=== PATIENT | male | born 1935 | race Caucasian/White ===

== ENCOUNTER 2020-11-21 08:28 | Outpatient (REF) | payer MEDICARE, SELFPAY ==
--- NOTE | ~2020-11-21 | XR_ITS ---
EXAMINATION: XR KNEE, RIGHT XR KNEE, LEFT CLINICAL INFORMATION: Bilateral knee pain COMPARISON: Radiographs left knee 05/31/2010, radiographs right knee 05/14/2006. TECHNIQUE: Each knee is imaged in 4 views. There are a total of 8 views. Series includes AP projections of each knee with weightbearing. FINDINGS: Right: There is no fracture, dislocation, destructive process. There is mild narrowing medial knee joint compartment and lateral patellofemoral joint without erosive change or chondrocalcinosis. There is spurring from the lateral patella. The anterior mechanism is spurring at the insertion quadriceps upper patella and at origin and insertion patella tendon. There is a small suprapatellar effusion. Hoffa's fat pad appears normal. Normal bony mineralization. Left: There is no fracture, dislocation, or destructive process. Narrowing medial knee joint compartment is greater than that on the contralateral right side and there is marginal osteophyte from the medial femoral condyle and medial tibial plateau with mild secondary genu varus. There is mild degenerative change lateral patellofemoral joint with borderline lateral tilting and lateral patellar spur. Small suprapatellar effusion present. There is spurring anterior mechanism at insertion quadriceps on patella and at origin and insertion patella tendon. Hoffa's fat pad within normal. XR/XR knee RT 4V IMPRESSION: 1. Mild narrowing bilateral medial knee joint compartments, greater on left with mild secondary left genu. Mild bilateral degenerative changes lateral patellofemoral joint with borderline lateral tilting on left. 2. Bilateral spurring extensor mechanism. 3. Small bilateral suprapatellar effusions.
--- NOTE | ~2020-11-21 | XR_ITS ---
EXAMINATION: XR KNEE, RIGHT XR KNEE, LEFT CLINICAL INFORMATION: Bilateral knee pain COMPARISON: Radiographs left knee 05/31/2010, radiographs right knee 05/14/2006. TECHNIQUE: Each knee is imaged in 4 views. There are a total of 8 views. Series includes AP projections of each knee with weightbearing. FINDINGS: Right: There is no fracture, dislocation, destructive process. There is mild narrowing medial knee joint compartment and lateral patellofemoral joint without erosive change or chondrocalcinosis. There is spurring from the lateral patella. The anterior mechanism is spurring at the insertion quadriceps upper patella and at origin and insertion patella tendon. There is a small suprapatellar effusion. Hoffa's fat pad appears normal. Normal bony mineralization. Left: There is no fracture, dislocation, or destructive process. Narrowing medial knee joint compartment is greater than that on the contralateral right side and there is marginal osteophyte from the medial femoral condyle and medial tibial plateau with mild secondary genu varus. There is mild degenerative change lateral patellofemoral joint with borderline lateral tilting and lateral patellar spur. Small suprapatellar effusion present. There is spurring anterior mechanism at insertion quadriceps on patella and at origin and insertion patella tendon. Hoffa's fat pad within normal. XR/XR knee LT 4V IMPRESSION: 1. Mild narrowing bilateral medial knee joint compartments, greater on left with mild secondary left genu. Mild bilateral degenerative changes lateral patellofemoral joint with borderline lateral tilting on left. 2. Bilateral spurring extensor mechanism. 3. Small bilateral suprapatellar effusions.
== END 2020-11-21 08:29 | disposition home or self-care (01) ==
LOC: HO.XRAY 08:28
PROVIDERS: PCP Internal Medicine; Visit Provider Internal Medicine
DX: M25.561 Pain in right knee (principal); M25.562 Pain in left knee
CPT/HCPCS: 73564

== ENCOUNTER → 2020-11-26 12:22 | Outpatient (BNVA) | payer MEDICARE, SELFPAY | PROVIDERS: PCP Internal Medicine; Visit Provider Orthopaedic Surgery | DX: M17.0 Bilateral primary osteoarthritis of knee (principal) | CPT/HCPCS: 20610; 99202; J1040 ==

== ENCOUNTER → 2021-06-27 09:12 | Outpatient (BNVA) | payer MEDICARE, SELFPAY | PROVIDERS: PCP Internal Medicine; Visit Provider Orthopaedic Surgery | DX: M17.0 Bilateral primary osteoarthritis of knee (principal) | CPT/HCPCS: 20610; 99212; J1100 ==

== ENCOUNTER 2021-07-17 06:28 | Outpatient (REF) | payer MEDICARE, SELFPAY ==
[2021-07-17 07:56] LABS: Anion Gap 11 (12-20); Blood Urea Nitrogen 18 mg/dL (9-16); Calcium 9.5 mg/dL (8.4-10.2); Carbon Dioxide 28 mmol/L (22-29); Chloride 106 mmol/L (96-108); Estimated Glomerular Filt Rate > 60; Glucose Random 95 mg/dL (60-115); Potassium 4.3 mmol/L (3.3-5.1); Sodium 141 mmol/L (135-145)
[2021-07-17 08:24] LABS: Prostate Specific Antigen 4.74 ng/mL (<0.05-4.0)
== END 2021-07-17 06:29 | disposition home or self-care (01) ==
LOC: HO.LAB 06:28
PROVIDERS: PCP Internal Medicine; Visit Provider Internal Medicine
DX: N40.0 Benign prostatic hyperplasia without lower urinary tract symptoms (principal); I10 Essential (primary) hypertension; Z12.5 Encounter for screening for malignant neoplasm of prostate
CPT/HCPCS: 36415; 80048; 84153

== ENCOUNTER → 2022-11-16 07:13 | Outpatient (BNVA) | payer MEDICARE, SELFPAY | PROVIDERS: PCP Internal Medicine; Visit Provider Internal Medicine Gastroenterology | DX: Z80.0 Family history of malignant neoplasm of digestive organs (principal); Z86.010 Personal history of colon polyps | CPT/HCPCS: 99202 ==

== ENCOUNTER 2022-12-15 06:53 | Day surgery (SDC) | payer OTHER, SELFPAY ==
[2022-12-10 13:57] VITALS: BMI 34.3
[2022-12-15 07:25] VITALS: BMI 34.5
[2022-12-15 07:27] VITALS: BP 136/65; PULSE 58; RESP 18; TEMP 36.1; O2SAT 99
[2022-12-15 07:28] VITALS: BMI 34.5
--- NOTE | 2022-12-15 07:44 | MHC.SHP ---
Pre-Procedural Eval Section A Date of Service: 12/15/22 The patient is an INPATIENT: No Changes since office visit: Yes Patient answered all questions; No Cold of Flu in the past 2 weeks, No New Medical Problems and No Changes in Medication The History & Physical has been completed within 30 days and I have reviewed it.: Yes Section B Chief Complaint: Personal history of colonic polyps,gerd,family hx Allergies: Allergies Allergy/AdvReac Type Severity Reaction Status Date / Time No Known Allergies Allergy Verified 11/16/22 07:23 Plan I have reviewed the history and physical and performed a pertinent physical examination on my patient. No changes have occurred unless specified. Time Spent With Patient Time: Total time managing care of this patient today ____ minutes.
[2022-12-15] MEDS: Lactated Ringers 1,000 ML 100 ML IVCONT (07:56)
--- NOTE | 2022-12-15 08:15 | P.CONAN_ITS ---
[facility] Active Problems Active Problems: All Active Problems (Updated 12/10/22 @ 13:47 by Maria C Rincon RN) Primary osteoarthritis of left knee (Acute) Primary osteoarthritis of right knee (Acute) History of colon polyps (Acute) Family history of colon cancer (Acute) Obesity (Acute) Past Medical History Medical History (Updated 12/10/22 @ 13:47 by Maria C Rincon RN) Anemia Asthma Enlarged prostate Gout Hypertension Family History Family History (Updated 11/16/22 @ 07:24 by MILVIA Guidry) Brother Colon cancer Family history of problems with anesthesia: No Surgical History Surgical History (Updated 11/16/22 @ 07:23 by MILVIA Guidry) Hx of colonoscopy Hx of LASIK History of Problems with Anesthesia: No Social History Social History Patient Tobacco Use Status: Former Tobacco user Quit Date: 47 years Use of substances other than those prescribed or required for medical reasons: No Are you DNR?: No Advance Directives: No Advance Directives Information Provided: Yes Current occupation: [employer] Allergies Allergy/AdvReac Type Severity Reaction Status Date / Time No Known Allergies Allergy Verified 11/16/22 07:23 Active Medications: Current Medications Albuterol Sulfate (Albuterol Sulfate (0.083%) 2.5 Mg/3 Ml Vial.Neb) 2.5 mg INHALE ONCE PRN PRN Reason: Shortness of Breath/Wheezing Lactated Ringer's (Lr) 1,000 mls @ 100 mls/hr IVCONT .Q10H ARNOLD Last Admin: 12/15/22 07:56 Dose: 100 mls/hr Ondansetron HCl (Ondansetron Hcl 4 Mg/2 Ml Vial) 4 mg IVPUSH ONCE PRN PRN Reason: Nausea and Vomiting Home Medications Medication Instructions Recorded Confirmed Last Taken Type aspirin 81 mg tablet,delayed 81 mg PO DAILY 11/26/20 12/10/22 12/14/22 History release (Adult Low Dose Aspirin) atenolol 25 mg tablet 25 mg PO DAILY 11/26/20 12/10/22 12/15/22 History amlodipine 10 mg tablet 10 mg PO DAILY 11/16/22 12/10/22 12/15/22 History albuterol sulfate 90 mcg/actuation 2 puff inhalation Q6H PRN 12/10/22 12/10/22 Unknown History aerosol inhaler Shortness Of Breath Or Wheezing cetirizine 10 mg tablet 10 mg PO DAILY PRN Allergy Symptoms 12/10/22 12/10/22 Unknown History colchicine 0.6 mg tablet 0.6 mg PO DAILY 12/10/22 12/15/22 Unknown History fluticasone furoate 100 1 ea inhalation QAM 12/10/22 12/10/22 12/15/22 History mcg-vilanterol 25 mcg/dose inhalation powder (Breo Ellipta) Exam Exam Date and Time: December 15, 2022 0815 Height,Weight and Vital Signs: Height 5 ft 4 in Weight 91.172 kg Last Vital Signs Temp 96.9 F 12/15/22 07:27 Pulse 58 12/15/22 07:27 Resp 18 12/15/22 07:27 BP 136/65 12/15/22 07:27 Pulse Ox 99 12/15/22 07:27 O2 Del Method Room Air 12/15/22 07:27 Airway Mallampati Class: III TM Dist: >3cm Denture: Upper Partial: Lower Loose/Missing/Broken Teeth: Yes Heart: rrr Lungs: clear Assessment and Plan Final Anesthetic Review Family History of Problems with Anesthesia: No History of Problems with Anesthesia: No NPO: Yes ASA Class: II Final Preanesthetic Review: No Changes in Pt Med Stat, Meds/Allgs Chart Reviewed, Consent Obtained/Reviewed and Anes Risks/Benef Reviewed Patient Risk: Intermediate Procedure Risk: Low Anesthetic Plan Anesthetic Plan: MAC: Disposition: Standard PACU
--- NOTE | 2022-12-15 08:15 | W.PM.OPN ---
Operative Note Operative Note Date of Service: 12/15/22 Narrative: FLEXIBLE TRANSORAL UPPER GASTROINTESTINAL ENDOSCOPY WITH BIOPSIES AND COLONOSCOPY TILL CECUM WITH SNARE POLYPECTOMY Pre-op diagnosis: screening, hx of colon polyps, GERD Post-op diagnosis: GERD, gastritis, colon polyps, diverticulosis, hemorrhoids Endoscopist:? Jillian Dumont MD Anesthesia:?MAC UPPER ENDOSCOPY Consent: Indications for the procedure and potential complications of bleeding, perforation, reaction to medications and missed diagnosis were discussed with the patient and informed consent was obtained. Instrument: Olympus GIF H 190 mid size upper endoscope Monitoring: Vital signs and clinical assessment, continuous EKG monitoring, Pulse oximetry, Carbon Dioxide monitoring and blood pressure monitoring were done throughout the procedure. Procedure: The patient was placed in the left lateral decubitis position and pre-procedure medications were administered and a bite block was placed. The endoscope was inserted into the mouth and advanced under direct vision to the third part of duodenum. A careful inspection was made as the upper endoscope was withdrawn including a retroflexed examination of the proximal stomach; Findings and interventions are described below. Findings: Larynx: Normal Esophagus: GE junction at 36 cms. No esophagitis or Abbott's. Stomach: Mild gastric erythema with a few chronic appearing erosions. Biopsies were obtained. Grade 2 flap valve on retroflexed examination of the cardia. Duodenum: Normal bulb and a medium sized diverticulum in the medial wall of descending duodenum Intervention: Biopsies as noted above COLONOSCOPY PROCEDURE NOTE Consent: Indications for the procedure and potential complications of bleeding, perforation, reaction to medications and missed diagnosis were discussed with the patient and informed consent was obtained. Instrument: Olympus PCF H 190 L variable stiffness pediatric colonoscope Monitoring: Vital signs and clinical assessment, intermittent blood pressure monitoring, continuous EKG monitoring, Pulse oximetry and Carbon Dioxide monitoring were done throughout the procedure. Colon withdrawl time was 30 minutes. Procedure: The patient was placed in the left lateral decubitis position and pre-procedure medications were administered. After a digital rectal examination of the ano-rectum, the video colonoscope was inserted into the rectum and advanced through the colon to the cecum. The colonoscope was slowly withdrawn in a retrograde panoramic fashion and the colon mucosa was carefully examined including a retroflexed view of the rectum. Findings and interventions are described below. Procedure Difficulty: Colon was long and there was some loop formation Findings: Terminal Ileum: Not evaluated Cecum: Normal Ascending Colon: A 1.8 to 2 cms sessile polyp - patient was placed in the supine position to facilitate snaring of the polyp. A 12 mm sessile polyp - removed with a hot snare. Transverse Colon: A 12 mm sessile polyp removed with a cold snare. Some bleeding noted at polypectomy site - controlled with cautery using the snare tip Descending Colon: Normal Sigmoid Colon: Moderate diverticulosis Rectum: Normal Ano-rectum: Moderate internal hemorrhoids Colon preparation: Good Impression and Post Procedure Diagnosis: Endoscopy Findings: STOMACH: Mild gastric erythema with a few chronic appearing erosions. DUODENUM: A medium sized diverticulum in the medial wall of descending duodenum Colonoscopy Findings: Two medium sized and one large polyps removed Moderate diverticulosis seen in the sigmoid colon Moderate hemorrhoids on retroflexed exam. Plan: Await pathology results Patient has an appointment on 02/18/23 in the GI Clinic with Jillian Dumont M.D. Repeat Colonoscopy interval based on path results - in 3 years if polyps are adenomatous and 5 years if polyps are hyperplastic (adult colonoscope for future colonoscopies). Colon polyps and diverticulosis handouts were given in the discharge area
[2022-12-15 09:39] VITALS: BP 95/52; PULSE 65; RESP 16; TEMP 36.2; O2SAT 97
[2022-12-15 09:54] VITALS: BP 98/53; PULSE 57; RESP 16; O2SAT 94
[2022-12-15 10:01] VITALS: BP 105/50; PULSE 61; RESP 18; TEMP 36.1; O2SAT 97
== END 2022-12-15 10:20 | disposition home or self-care (01) ==
PROVIDERS: PCP Internal Medicine; Visit Provider Internal Medicine Gastroenterology
PROC: (CPT 45385; principal; 2022-12-15 08:30)
DX: Z12.11 Encounter for screening for malignant neoplasm of colon (principal); Z86.010 Personal history of colon polyps; Z80.0 Family history of malignant neoplasm of digestive organs; D12.2 Benign neoplasm of ascending colon; D12.3 Benign neoplasm of transverse colon; K57.30 Diverticulosis of large intestine without perforation or abscess without bleeding; K64.8 Other hemorrhoids; K21.9 Gastro-esophageal reflux disease without esophagitis; K29.50 Unspecified chronic gastritis without bleeding; I10 Essential (primary) hypertension; M10.9 Gout, unspecified; J45.909 Unspecified asthma, uncomplicated; Z79.51 Long term (current) use of inhaled steroids; Z79.82 Long term (current) use of aspirin; Z79.899 Other long term (current) drug therapy; Z87.891 Personal history of nicotine dependence
CPT/HCPCS: 45385; 43239; 88305; 88342; J0461

== ENCOUNTER → 2022-12-15 06:53 | Outpatient (BNV) | payer OTHER, SELFPAY | PROVIDERS: PCP Internal Medicine; Visit Provider Internal Medicine Gastroenterology | DX: Z12.11 Encounter for screening for malignant neoplasm of colon (principal); Z86.010 Personal history of colon polyps; K57.30 Diverticulosis of large intestine without perforation or abscess without bleeding; K64.8 Other hemorrhoids; D12.2 Benign neoplasm of ascending colon; D12.3 Benign neoplasm of transverse colon; K21.9 Gastro-esophageal reflux disease without esophagitis; K29.70 Gastritis, unspecified, without bleeding | CPT/HCPCS: 43239; 45385 ==

== ENCOUNTER 2023-02-18 11:15 | Outpatient (AMB) | payer MEDICARE, SELFPAY ==
--- NOTE | 2023-02-18 11:24 | MHC.OFFVIS ---
Intake Vital Signs 02/18/23 11:26 Height 5 ft 4 in Weight 200 lb BMI 34.3 BP 122/59 L Blood Pressure Location Lt brachial Position Sitting Pulse 62 Intake Visit Reasons: S/p egd/colon Intake Note: Patient follow up for EGD/Colonoscopy results. Patient is been waiting for positive Hp pylori antibiotic that was suppose to send after the procedures. Denies any GI issues. [employer] Superintendent Required: No Accompanied by: Self / Same As Patient Allergies No Known Allergies Allergy (Verified 02/18/23 11:24) Medication List - Last Reconciled 02/18/23 by Jillian Dumont MD albuterol sulfate 90 mcg/actuation 2 puffs inhalation Q6H PRN amlodipine 10 mg PO DAILY aspirin (Adult Low Dose Aspirin) 81 mg PO DAILY atenolol 25 mg PO DAILY bismuth subcit [id number] 140-125-125 mg (Pylera) 3 caps PO QID 14 days cetirizine 10 mg PO DAILY PRN colchicine (gout) 0.6 mg PO DAILY fluticasone furoate-vilanterol 100-25 mcg/dose (Breo Ellipta) 1 ea inhalation QAM omeprazole 20 mg PO BID 30 days HPI S/p egd/colon HPI Details GI clinic visit for this 87 year male for colon cancer screening. Pt has a history of colon polyps IMAGING STUDIES: None in expanse ENDOSCOPIC STUDIES: 12/15/22 EGD AND COLON SHOWED: Endoscopy Findings: STOMACH: Mild gastric erythema with a few chronic appearing erosions. DUODENUM: A medium sized diverticulum in the medial wall of descending duodenum Colonoscopy Findings: Two medium sized and one large polyps removed Moderate diverticulosis seen in the sigmoid colon Moderate hemorrhoids on retroflexed exam. Plan: Repeat Colonoscopy interval based on path results - in 3 years if polyps are adenomatous and 5 years if polyps are hyperplastic (adult colonoscope for future colonoscopies). 01/2018 COLONOSCOPY SHOWED: Ascending Colon ? A 15 mm sessile polyp removed with hot snare Transverse Colon - A 10 mm sessile polyp removed with cold snare. Some bleeding noted at polypectomy site controlled with cautery using the snare tip Descending Colon ? Normal Sigmoid Colon ? A 10 mm sessile polyp removed with hot snare Rectum ? Normal Anorectum - Moderate non inflammed internal hemorrhoids Colon preparation: Fair despite copious flushing and suctioning and poor in some areas of the colon Impression and Post Procedure Diagnosis: Colonoscopy Findings: Three polyps removed Moderate hemorrhoids on retroflexed exam. Fair prep and poor in some areas Plan: Await pathology results Patient has an appointment on 02/22/2018 in the GI Clinic with Jillian Dumont M.D. Repeat Colonoscopy in 1 year due to fair prep. Biopsies of polyps showed tubular adenoma TODAY'S VISIT: [facility] [place] Educational Technician, Bruna EGD and colon results reviewed with the patient. Has intermittent heartburn depending on his diet and on no medications (was taking Ranitidine twice a day in the past). Patient denies symptoms of heartburn, dysphagia, nausea, vomiting, change in appetite or weight. Denies recent change in bowel habits, constipation, diarrhea, black stools. Intermittent BRBPR. Patient denies major cardiac or pulmonary problems. Pt has a hx of loud snoring and not tested for sleep apnea Denies problems with anesthesia in the past. Denies being on chronic anticoagulation. Brother from Colon Cancer ? at age 39 yrs. Complains of back pain. Social History Tobacco Use:? Tob acco Use/Smoking? Are you a: former smoker , How long has it been since you last smoked?: > 10 years.? Mi scellaneous:? Occ upation: retired. Dominant hand: l eft. Activity Lev el: very active. Marital status: m arried. PAST GI HISTORY BY REVIEW OF MEDICAL RECORDS: ?[place] [facility] [place] which showed: ?Diffuse melanosis coli throughout the colon. ?Two 8 - 10 mm sessile polyps were removed from the ascending colon. ?No diverticulii or hemorrhoids noted. ?Good prep. ?FU colonoscopy was advised in 6 months which was performed on 09/29/2011 and no polyps were seen. ?5 yr FU recommended [facility] Medical History (Updated 12/21/22 @ 14:48 by Jillian Dumont MD) Enlarged prostate Anemia Gout Asthma Hypertension Surgical History History of esophagogastroduodenoscopy (EGD) Hx of colonoscopy Hx of LASIK Family History Brother Colon cancer Social History Patient Tobacco Use Status: Former Tobacco user Quit Date: 47 years Current occupation: [employer] Review of Systems Const All systems reviewed & are unremarkable except as noted in HPI and below Physical Exam Vital Signs: Last Vital Signs Pulse 62 02/18/23 11:26 BP 122/59 L 02/18/23 11:26 BMI result Body Mass Index 34.3 Const General: healthy appearing and no acute distress Nutritional Appearance: obese Orientation/consciousness: patient oriented x3 Limitations: language barrier HEENT Head: Yes normal to inspection Ears: hearing grossly normal bilaterally Eyes Sclerae: sclerae normal Pupils: Equal, round and reactive pupils present Neck Neck: Yes normal visual inspection Chest Chest palpation & inspection: normal inspection of the chest Resp Effort & Inspection: normal respiratory effort Auscultation: clear to auscultation bilaterally Cardio Palpation: normal PMI Rate: regular rate Rhythm: regular rhythm Heart sounds: S1 normal heart sound present, S2 normal heart sound present and no murmurs GI Palpation (GI): Soft to palpation, nontender and No hepatosplenomegaly present Auscultation: normal bowel sounds Rectal Exam - Male: Yes deferred Skin General skin exam: no rashes or lesions noted Neuro General: patient oriented x3, gait normal and moves all extremities Cranial nerves: Yes Equal, round and reactive pupils present Psych Appearance: grossly normal Mental Status: mental status grossly normal Assessment & Plan Assessment & Plan (1) Multiple duodenal ulcers: Code(s): K29.81 - Duodenitis with bleeding (2) Helicobacter pylori gastritis: Code(s): K29.70 - Gastritis, unspecified, without bleeding; B96.81 - Helicobacter pylori [H. pylori] as the cause of diseases classified elsewhere (3) History of colon polyps: Comment: 2018 Pt had a colonoscopy and three medium sized polyps were removed. Repeat colon advised in 1 year due to suboptimal prep and not scheduled due to the pandemic Code(s): Z86.010 - Personal history of colonic polyps (4) Family history of colon cancer: Comment: Brother - at age 49 yrs Code(s): Z80.0 - Family history of malignant neoplasm of digestive organs Plan 87 YM with gout, asthma and hypertension here to schedule a colonoscopy due to history of colon polyps and family history of colon cancer. 2017 Pt had a colonoscopy and three medium sized polyps were removed. Repeat colon advised in 1 year due to suboptimal prep and not scheduled due to the pandemic Patient also complains of intermittent heartburn related to diet. 12/15/22 An upper endoscopy (GERD) and a colonoscopy (FU of colon polyps) were performed and findings as noted above. Gastric bx was positive for H Pylori. Pt was prescribed Pylera and Omeprazole FU in 6 months. Medications: Refilled bismuth subcit [id number] 140-125-125 mg (Pylera) 3 caps PO QID 14 days 168 caps 0RF B96.81 - Helicobacter pylori [H. pylori] as the cause of diseases classified elsewhere, K29.70 - Gastritis, unspecified, without bleeding Coding Level of Care Code Est Pt Level 4 (44858) Diagnoses Multiple duodenal ulcers K29.81 Helicobacter pylori gastritis K29.70; B96.81 History of colon polyps Z86.010 Family history of colon cancer Z80.0 Time Spent (min) 24
[2023-02-18 11:26] VITALS: BP 122/59; PULSE 62; BMI 34.3
== END 2023-02-18 12:04 | disposition home or self-care (01) ==
PROVIDERS: PCP Internal Medicine; Visit Provider Internal Medicine Gastroenterology
DX: K29.81 Duodenitis with bleeding (principal); K29.70 Gastritis, unspecified, without bleeding; B96.81 Helicobacter pylori [H. pylori] as the cause of diseases classified elsewhere; Z86.010 Personal history of colon polyps; Z80.0 Family history of malignant neoplasm of digestive organs
CPT/HCPCS: 99214

== ENCOUNTER → 2023-02-18 11:15 | Outpatient (BNVA) | payer MEDICARE, SELFPAY | PROVIDERS: PCP Internal Medicine; Visit Provider Internal Medicine Gastroenterology | DX: K29.70 Gastritis, unspecified, without bleeding (principal); B96.81 Helicobacter pylori [H. pylori] as the cause of diseases classified elsewhere; K29.81 Duodenitis with bleeding; Z86.010 Personal history of colon polyps; Z80.0 Family history of malignant neoplasm of digestive organs | CPT/HCPCS: 99212 ==

== ENCOUNTER 2023-03-23 06:33 | Outpatient (REF) | payer MEDICARE, SELFPAY ==
[2023-03-23 07:42] LABS: Anion Gap 12 (12-20); Blood Urea Nitrogen 14 mg/dL (9-16); Calcium 9.5 mg/dL (8.4-10.2); Carbon Dioxide 27 mmol/L (22-29); Chloride 107 mmol/L (96-108); Cholesterol 182 mg/dL (<200); Estimated Glomerular Filt Rate > 60; Glucose Random 108 mg/dL (60-115); HDL Cholesterol 46 mg/dL (>40); LDL Cholesterol Calculated 118 mg/dL (<100); Potassium 3.9 mmol/L (3.3-5.1); Sodium 142 mmol/L (135-145); Triglycerides 93 mg/dL (<150)
== END 2023-03-23 06:34 | disposition home or self-care (01) ==
LOC: HO.LAB 06:33
PROVIDERS: PCP Internal Medicine; Visit Provider Internal Medicine
DX: Z00.00 Encounter for general adult medical examination without abnormal findings (principal); I10 Essential (primary) hypertension
CPT/HCPCS: 36415; 80048; 80061

== ENCOUNTER 2023-07-26 06:46 | Outpatient (REF) | payer MEDICARE, SELFPAY ==
[2023-07-26 08:27] LABS: Prostate Specific Antigen 4.01 ng/mL (<0.05-4.0)
== END 2023-07-26 06:47 | disposition home or self-care (01) ==
LOC: HO.LAB 06:46
PROVIDERS: PCP Internal Medicine; Visit Provider Urology
DX: N42.9 Disorder of prostate, unspecified (principal); Z12.5 Encounter for screening for malignant neoplasm of prostate
CPT/HCPCS: 36415; 84153

== ENCOUNTER 2023-08-26 07:11 | Outpatient (REF) | payer MEDICARE, SELFPAY ==
[2023-08-28 13:43] LABS: H Pylori Breath Test Negative (Negative)
== END 2023-08-26 07:12 | disposition home or self-care (01) ==
LOC: HO.LNP 07:11
PROVIDERS: PCP Internal Medicine; Visit Provider Internal Medicine Gastroenterology
DX: K29.70 Gastritis, unspecified, without bleeding (principal); B96.81 Helicobacter pylori [H. pylori] as the cause of diseases classified elsewhere
CPT/HCPCS: 83013; 99212

== ENCOUNTER 2023-08-26 07:11 | Outpatient (AMB) | payer MEDICARE, SELFPAY ==
--- NOTE | 2023-08-26 07:18 | MHC.OFFVIS ---
Intake Vital Signs 08/26/23 07:19 Height 5 ft 4 in Weight 202 lb BMI 34.7 BP 125/55 L Blood Pressure Location Lt brachial Position Sitting Pulse 72 Intake Visit Reasons: 6 month follow up Tubular adenoma of colon Intake Note: Patient 6 month follow up for Tubular adenoma of Colon. Patient denies any GI issues, patient is not taking Omeprazole because never received any other refills, he does not if he have to continue to take it or not . Chief Of Anesthesiology Required: Yes Chief Of Anesthesiology Name: Tyrel [id number] Accompanied by: Self / Same As Patient Allergies No Known Allergies Allergy (Verified 08/26/23 07:17) Medication List - Last Reconciled 08/26/23 by Jillian Dumont MD albuterol sulfate 90 mcg/actuation 2 puffs inhalation Q6H PRN amlodipine 10 mg PO DAILY aspirin (Adult Low Dose Aspirin) 81 mg PO DAILY atenolol 25 mg PO DAILY bismuth subcit [id number] 140-125-125 mg (Pylera) 3 caps PO QID 14 days cetirizine 10 mg PO DAILY PRN colchicine 0.6 mg PO DAILY fluticasone furoate-vilanterol 100-25 mcg/dose (Breo Ellipta) 1 ea inhalation QAM omeprazole 20 mg PO BID 30 days HPI 6 month follow up Tubular adenoma of colon HPI Details GI clinic visit for this 87 year male for colon cancer screening. Pt has a history of colon polyps IMAGING STUDIES: None in expanse ENDOSCOPIC STUDIES: 12/15/22 EGD AND COLON SHOWED: Endoscopy Findings: STOMACH: Mild gastric erythema with a few chronic appearing erosions. DUODENUM: A medium sized diverticulum in the medial wall of descending duodenum Colonoscopy Findings: Two medium sized and one large polyps removed Moderate diverticulosis seen in the sigmoid colon Moderate hemorrhoids on retroflexed exam. Plan: Repeat Colonoscopy interval based on path results - in 3 years if polyps are adenomatous and 5 years if polyps are hyperplastic (adult colonoscope for future colonoscopies). 01/2018 COLONOSCOPY SHOWED:Ascending Colon ? A 15 mm sessile polyp removed with hot snare Transverse Colon - A 10 mm sessile polyp removed with cold snare. Some bleeding noted at polypectomy site controlled with cautery using the snare tip Descending Colon ? Normal Sigmoid Colon ? A 10 mm sessile polyp removed with hot snare Rectum ? Normal Anorectum - Moderate non inflammed internal hemorrhoids Colon preparation: Fair despite copious flushing and suctioning and poor in some areas of the colon Impression and Post Procedure Diagnosis: Colonoscopy Findings: Three polyps removed Moderate hemorrhoids on retroflexed exam. Fair prep and poor in some areas Plan: Await pathology results Patient has an appointment on 02/22/2018 in the GI Clinic with Jillian Dumont M.D. Repeat Colonoscopy in 1 year due to fair prep. Biopsies of polyps showed tubular adenoma TODAY'S VISIT: [facility] [place] [employer], Tyrel # [id number] Had a single episode of dysphagia a week ago while eating food Food ultimately passed and he did not have to regurgitate Denies recurrent episodes since then. PAST VISITS: Patient denies any GI issues, patient is not taking Omeprazole because never received any other refills, he does not if he have to continue to take it or not EGD and colon results reviewed with the patient. Has intermittent heartburn depending on his diet and on no medications (was taking Ranitidine twice a day in the past). Patient denies symptoms of heartburn, dysphagia, nausea, vomiting, change in appetite or weight. Denies recent change in bowel habits, constipation, diarrhea, black stools. Intermittent BRBPR. Patient denies major cardiac or pulmonary problems. Pt has a hx of loud snoring and not tested for sleep apnea Denies problems with anesthesia in the past. Denies being on chronic anticoagulation. Brother from Colon Cancer ? at age 39 yrs. Complains of back pain. Social History Tobacco Use:? Tob acco Use/Smoking? Are you a: former smoker , How long has it been since you last smoked?: > 10 years.? Mi scellaneous:? Occ upation: retired. Dominant hand: l eft. Activity Lev el: very active. Marital status: m arried. PAST GI HISTORY BY REVIEW OF MEDICAL RECORDS: ?Patient had colooscopy on 03/17/2011 at [facility] for screening which showed: ?Diffuse melanosis coli throughout the colon. ?Two 8 - 10 mm sessile polyps were removed from the ascending colon. ?No diverticulii or hemorrhoids noted. ?Good prep. ?FU colonoscopy was advised in 6 months which was performed on 09/29/2011 and no polyps were seen. ?[address] [facility] Medical History (Updated 08/26/23 @ 08:04 by Jillian Dumont MD) Enlarged prostate Anemia Gout Asthma Hypertension Surgical History History of esophagogastroduodenoscopy (EGD) Hx of colonoscopy Hx of LASIK Family History Brother Colon cancer Social History Patient Tobacco Use Status: Former Tobacco user Quit Date: 47 years Current occupation: [employer] Review of Systems Const All systems reviewed & are unremarkable except as noted in HPI and below Physical Exam Vital Signs: Last Vital Signs Pulse 72 08/26/23 07:19 BP 125/55 L 08/26/23 07:19 BMI result Body Mass Index 34.7 Const General: healthy appearing and no acute distress Nutritional Appearance: obese Orientation/consciousness: patient oriented x3 Limitations: language barrier HEENT Head: Yes normal to inspection Ears: hearing grossly normal bilaterally Eyes Sclerae: sclerae normal Pupils: Equal, round and reactive pupils present Neck Neck: Yes normal visual inspection Chest Chest palpation & inspection: normal inspection of the chest Resp Effort & Inspection: normal respiratory effort Auscultation: clear to auscultation bilaterally Cardio Palpation: normal PMI Rate: regular rate Rhythm: regular rhythm Heart sounds: S1 normal heart sound present, S2 normal heart sound present and no murmurs GI Inspection: Yes obesity Palpation (GI): Soft to palpation, nontender and No hepatosplenomegaly present Auscultation: normal bowel sounds Rectal Exam - Male: Yes deferred Skin General skin exam: no rashes or lesions noted Neuro General: patient oriented x3, gait normal and moves all extremities Cranial nerves: Yes Equal, round and reactive pupils present Psych Appearance: grossly normal Mental Status: mental status grossly normal Assessment & Plan Assessment & Plan (1) History of colon polyps: Comment: 2018 Pt had a colonoscopy and three medium sized polyps were removed. Repeat colon advised in 1 year due to suboptimal prep and not scheduled due to the pandemic Code(s): Z86.010 - Personal history of colonic polyps (2) Family history of colon cancer: Comment: Brother - at age 49 yrs Code(s): Z80.0 - Family history of malignant neoplasm of digestive organs (3) Helicobacter pylori gastritis: Code(s): K29.70 - Gastritis, unspecified, without bleeding; B96.81 - Helicobacter pylori [H. pylori] as the cause of diseases classified elsewhere (4) Multiple duodenal ulcers: Code(s): K29.81 - Duodenitis with bleeding (5) Dysphagia, pharyngoesophageal phase: Code(s): R13.14 - Dysphagia, pharyngoesophageal phase Plan 87 YM with gout, asthma and hypertension here to schedule a colonoscopy due to history of colon polyps and family history of colon cancer. 2018 Pt had a colonoscopy and three medium sized polyps were removed. Repeat colon advised in 1 year due to suboptimal prep and not scheduled due to the pandemic Patient also complains of intermittent heartburn related to diet. 12/15/22 An upper endoscopy (GERD) and a colonoscopy (FU of colon polyps) were performed and findings as noted above. Gastric bx was positive for H Pylori. Pt was prescribed Pylera and Omeprazole 08/26/23 Had a single episode of dysphagia a week ago while eating food Food ultimately passed and he did not have to regurgitate Denies recurrent episodes since then. H Pylori breath test. Resume Omeprazole once a day after the breath test Pt advised to schedule a Barium swallow if he continues to have dysphagia He is due for a colonoscopy (FU of multiple colon polyps) FU in 5- 6 month Orders: Orders H Pylori Breath Test Today B96.81 - Helicobacter pylori [H. pylori] as the cause of diseases classified elsewhere, K29.70 - Gastritis, unspecified, without bleeding FL barium swallow Today R13.14 - Dysphagia, pharyngoesophageal phase Medications: New bisacodyl (Dulcolax (bisacodyl)) Take 2 tablets at 12 pm starting 5 days before colonoscopy appointment 10 mg (2 x 5 mg) PO ONCE 10 tabs 0RF 5 days polyethylene glycol 3350 (Miralax) Mix Miralax with 64 oz(8 cups) of Crystal light. Take 2 tablets of Dulcolax qt 12 pm. Wait to have your 1st bowel movement, then begin drinking Miralax. Drink a glass of Miralax every 10-15 minutes until you are finished. You will drink at least another 4 cups of clear liquid of your choice over the next 2 hours. Please drink as many clear liquids as possible You may have clear liquids up to four hours before your procedure 17 grams PO DAILY 238 grams 0RF colon prep 1 day polyethylene glycol 3350 (Miralax) 17 grams PO DAILY PRN 510 grams 1RF constipation 30 days K59.09 - Other constipation Changed From omeprazole 20 mg PO BID 30 days 60 caps 3RF To omeprazole 20 mg orally Once a day; Take 30 min before breakfast 90 caps 1RF 90 days Coding Level of Care Code Est Pt Level 4 (93336) Diagnoses History of colon polyps Z86.010 Family history of colon cancer Z80.0 Helicobacter pylori gastritis K29.70; B96.81 Multiple duodenal ulcers K29.81 Dysphagia, pharyngoesophageal phase R13.14 Time Spent (min) 25
[2023-08-26 07:19] VITALS: BP 125/55; PULSE 72; BMI 34.7
== END 2023-08-26 08:21 | disposition home or self-care (01) ==
PROVIDERS: PCP Internal Medicine; Visit Provider Internal Medicine Gastroenterology
DX: K29.70 Gastritis, unspecified, without bleeding (principal); K29.81 Duodenitis with bleeding; Z86.010 Personal history of colon polyps; Z80.0 Family history of malignant neoplasm of digestive organs; B96.81 Helicobacter pylori [H. pylori] as the cause of diseases classified elsewhere; R13.14 Dysphagia, pharyngoesophageal phase
CPT/HCPCS: 99214

== ENCOUNTER 2023-10-26 07:20 | Outpatient (REF) | payer MEDICARE, SELFPAY ==
--- NOTE | ~2023-10-26 | FL_ITS ---
EXAMINATION: XR FLUOROSCOPY UPPER GI WITH AIR CLINICAL INFORMATION: Dysphagia COMPARISON: None TECHNIQUE: Fluoroscopic air contrast upper GI examination was performed utilizing standard techniques with thin and thick barium and effervescent granules. Numerous spot images were obtained. FINDINGS: Lateral cine images of the oropharynx and hypopharynx demonstrate normal swallow mechanism with normal epiglottic inversion and soft palate elevation. No tracheal penetration, glottic or subglottic aspiration identified. No nasopharyngeal reflux present. Hypopharyngeal structures appear normal without evidence of mass or diverticulum. 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 There was no significant cricopharyngeal achalasia. Dual and single contrast images of the esophagus demonstrate normal caliber, contour, and mucosal pattern. No evidence of stricture, mass, or ulcerations identified. Esophageal peristalsis was normal. A small type I hiatal hernia is present. Gastroesophageal reflux is seen up to the level the aortic arch. Dual contrast and single contrast images of the stomach demonstrated normal contour and mucosal pattern without evidence of mass, ulceration, or other abnormality. Contrast freely passed into the gastric antrum and duodenal bulb without delay. Single and air-contrast images of the duodenal bulb demonstrate no abnormality. The duodenal sweep has a normal appearance, course, and mucosal fold appearance. There is a second segment duodenal diverticulum. The imaged jejunum and ileum have a normal fold pattern and caliber. There is rapid transit of the barium, in which the distal small bowel and right colon is opacified at the end of the examination. FLUOROSCOPY TIME: 3 minutes 32 seconds Number of Spot Images: 13 Number of Cine: 11 DOSE AREA PRODUCT: 2951 uGy-m2 (microgray-meter squared) FL/FL barium swallow IMPRESSION: 1. 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 2. Small type I hiatal hernia. 3. Moderate gastroesophageal reflux. 4. Second segment duodenal diverticulum. 5. Rapid transit of the barium, in which the right colon was opacified at the examination. Etiology unknown. This procedure was performed by Osman Swann PA-C, and supervised by Dr. Pires
== END 2023-10-26 07:21 | disposition home or self-care (01) ==
LOC: HO.XRAY 07:20
PROVIDERS: PCP Internal Medicine; Visit Provider Internal Medicine Gastroenterology
DX: R13.14 Dysphagia, pharyngoesophageal phase (principal)
CPT/HCPCS: 74220

== ENCOUNTER → 2023-10-26 07:21 | Outpatient (BNV) | payer MEDICARE, SELFPAY | PROVIDERS: PCP Internal Medicine; Visit Provider Physician Assistant Surgical | DX: R13.14 Dysphagia, pharyngoesophageal phase (principal) | CPT/HCPCS: 74246 ==

== ENCOUNTER 2024-02-11 07:54 | Day surgery (SDC) | payer MEDICARE, SELFPAY ==
--- NOTE | 2024-02-10 10:20 | P.CONAN_ITS ---
Documented by User: Kasia Vick NP 02/10/24 10:20 HPI - Anesthesia Eval Consult details Narrative: 88yo M for Colonoscopy PMFSH Active Problems Active Problems: All Active Problems Dysphagia, pharyngoesophageal phase (Acute) Multiple duodenal ulcers (Acute) Helicobacter pylori gastritis (Acute) Primary osteoarthritis of left knee (Acute) Primary osteoarthritis of right knee (Acute) History of colon polyps (Acute) Family history of colon cancer (Acute) Obesity (Acute) Past Medical History Medical History Enlarged prostate Anemia Gout Asthma Hypertension Family History Family History Brother Colon cancer Family history of problems with anesthesia: No Surgical History Surgical History History of esophagogastroduodenoscopy (EGD) Hx of colonoscopy Hx of LASIK History of Problems with Anesthesia: No Social History Social History (Updated 02/11/24 @ 09:36 by Shyanne Hu MD) Are you a primary adult day care worker to a significant other at home: No Do you presently have visiting nurse or other home services: No Patient Tobacco Use Status: Former Tobacco user Meds Allergies Allergy/AdvReac Type Severity Reaction Status Date / Time No Known Allergies Allergy Verified 02/11/24 09:09 Home Medications ?Medication ?Instructions ?Recorded ?Confirmed ?Last Taken ?Type aspirin 81 mg tablet,delayed 81 mg PO DAILY 11/26/20 02/11/24 12/14/22 History release (Adult Low Dose Aspirin) atenolol 25 mg tablet 25 mg PO DAILY 11/26/20 02/11/24 12/15/22 History amlodipine 10 mg tablet 10 mg PO DAILY 11/16/22 02/11/24 12/15/22 History albuterol sulfate 90 mcg/actuation 2 puff inhalation Q6H PRN 12/10/22 02/11/24 Unknown History aerosol inhaler Shortness Of Breath Or Wheezing cetirizine 10 mg tablet 10 mg PO DAILY PRN Allergy Symptoms 12/10/22 02/11/24 Unknown History colchicine 0.6 mg tablet 0.6 mg PO DAILY 12/10/22 02/11/24 Unknown History fluticasone furoate 100 1 ea inhalation QAM 12/10/22 02/11/24 12/15/22 History mcg-vilanterol 25 mcg/dose inhalation powder (Breo Ellipta) Assessment and Plan Assessment Anesthesia Assessment: Chart Reviewed Final Anesthetic Review Family History of Problems with Anesthesia: No History of Problems with Anesthesia: No Documented by User: Shyanne Hu MD 02/11/24 09:44 PMFSH Active Problems Active Problems: All Active Problems Dysphagia, pharyngoesophageal phase (Acute) Multiple duodenal ulcers (Acute) Helicobacter pylori gastritis (Acute) Primary osteoarthritis of left knee (Acute) Primary osteoarthritis of right knee (Acute) History of colon polyps (Acute) Family history of colon cancer (Acute) Obesity (Acute) BMI 34.7 Denies JACQUIE HTN Asthma/COPD Gout BPH H/o anemia Past Medical History Medical History Enlarged prostate Anemia Gout Asthma Hypertension Family History Family History Brother Colon cancer Family history of problems with anesthesia: No Surgical History Surgical History History of esophagogastroduodenoscopy (EGD) Hx of colonoscopy Hx of LASIK History of Problems with Anesthesia: No Social History Social History (Updated 02/11/24 @ 09:36 by Shyanne Hu MD) Are you a primary adult day care worker to a significant other at home: No Do you presently have visiting nurse or other home services: No Patient Tobacco Use Status: Former Tobacco user Meds Allergies Allergy/AdvReac Type Severity Reaction Status Date / Time No Known Allergies Allergy Verified 02/11/24 09:09 Home Medications ?Medication ?Instructions ?Recorded ?Confirmed ?Last Taken ?Type aspirin 81 mg tablet,delayed 81 mg PO DAILY 11/26/20 02/11/24 12/14/22 History release (Adult Low Dose Aspirin) atenolol 25 mg tablet 25 mg PO DAILY 11/26/20 02/11/24 12/15/22 History amlodipine 10 mg tablet 10 mg PO DAILY 11/16/22 02/11/24 12/15/22 History albuterol sulfate 90 mcg/actuation 2 puff inhalation Q6H PRN 12/10/22 02/11/24 Unknown History aerosol inhaler Shortness Of Breath Or Wheezing cetirizine 10 mg tablet 10 mg PO DAILY PRN Allergy Symptoms 12/10/22 02/11/24 Unknown History colchicine 0.6 mg tablet 0.6 mg PO DAILY 12/10/22 02/11/24 Unknown History fluticasone furoate 100 1 ea inhalation QAM 12/10/22 02/11/24 12/15/22 History mcg-vilanterol 25 mcg/dose inhalation powder (Breo Ellipta) Exam Height,Weight and Vital Signs: Height 5 ft 4 in Weight 91.626 kg Vital Signs Temp Pulse Resp BP Pulse Ox O2 Del Method 02/11/24 09:07 98.1 F 60 18 141/70 H 98 Room Air Airway Mallampati Class: III TM Dist: >3cm Neck ROM: Full Denture: Upper Partial: Lower Loose/Missing/Broken Teeth: Yes (?Broken tooth bottom right back. Denies loose teeth) Heart: RRR Lungs: ?occasional wheeze Assessment and Plan Assessment Anesthesia Assessment: Anesthesia Plan Discussed and Chart Reviewed Final Anesthetic Review Family History of Problems with Anesthesia: No History of Problems with Anesthesia: No NPO: Yes ASA Class: III Final Preanesthetic Review: No Changes in Pt Med Stat, Meds/Allgs Chart Reviewed, Consent Obtained/Reviewed and Anes Risks/Benef Reviewed Patient Risk: Intermediate Procedure Risk: Low Assessment/Block/Sedation in SS: Assess/Block/Sedation-SS Anesthetic Plan Anesthetic Plan: TIVA Disposition: Standard PACU
[2024-02-11 08:56] VITALS: BMI 34.7
[2024-02-11] MEDS: Lactated Ringers 1,000 ML 100 ML IVCONT (08:59)
[2024-02-11 09:07] VITALS: BP 141/70; PULSE 60; RESP 18; TEMP 36.7; O2SAT 98
--- NOTE | 2024-02-11 09:22 | MHC.SHP ---
Pre-Procedural Eval Section A - 24 Hr Update-Section A only Date of Service: 02/11/24 The patient is an INPATIENT: No The patient has been examined within 24 hours of the surgical procedure. The History & Physical has been completed within 30 days and I have reviewed it.: No Section B - Complete if H&P > 30 days Chief Complaint: Surveillance for colon polyps, dysphagia Relevant Family History (Specify if Yes): Yes Relevant Social History: Tobacco Use (Former smoker) Present Medications: see Short Stay Collaborative assessment Medical History: Significant History (Enlarged prostate Anemia Gout Asthma Hypertension) History of Previous Operations: Relevant previous surgery/procedure and date(s) (History of esophagogastroduodenoscopy (EGD) Hx of colonoscopy Hx of LASIK) Allergies: Allergies Allergy/AdvReac Type Severity Reaction Status Date / Time No Known Allergies Allergy Verified 02/11/24 09:09 Review of Systems Sugical H&P ROS: Negative: Constitution, Cardiovascular, Respiratory and Gastrointestinal Exam Surgical H&P Exam: Normal: Heart, Normal: Lungs, Normal: Extremities and Normal: Abdomen Plan Diagnosis/Plan: Change (add EGD for dysphagia) I have reviewed the history and physical and performed a pertinent physical examination on my patient. No changes have occurred unless specified. Time Spent With Patient Time: Total time managing care of this patient today ____ minutes.
--- NOTE | 2024-02-11 10:32 | HO.OPN-COLON ---
Colonoscopy Operative Note Operative Note Date of Service: 02/11/24 Narrative: FLEXIBLE TRANSORAL UPPER GASTROINTESTINAL ENDOSCOPY WITH BIOPSIES AND ESOPHAGEAL BALLOON DILATION AND COLONOSCOPY TILL CECUM WITH SNARE POLYPECTOMY AND HEMOCLIP PLACEMENT Pre-op diagnosis: Surveillance for colon polyps, GERD, dysphagia Post-op diagnosis: Hiatal hernia, Dysphagia, Gastritis, Colon Polyps, Diverticulosis, hemorrhoids Endoscopist:? Jillian Dumont MD Anesthesia:?MAC UPPER ENDOSCOPY Consent: Indications for the procedure and potential complications of bleeding, perforation, reaction to medications and missed diagnosis were discussed with the patient and informed consent was obtained. Instrument: Olympus GIF H 190 mid size upper endoscope Monitoring: Vital signs and clinical assessment, continuous EKG monitoring, Pulse oximetry, Carbon Dioxide monitoring and blood pressure monitoring were done throughout the procedure. Procedure: The patient was placed in the left lateral decubitis position and pre-procedure medications were administered and a bite block was placed. The endoscope was inserted into the mouth and advanced under direct vision to the third part of duodenum. A careful inspection was made as the upper endoscope was withdrawn including a retroflexed examination of the proximal stomach; Findings and interventions are described below. Findings: Larynx: Normal Esophagus: GE junction at 35 cms, small hiatal hernia 35 to 36 cms. Mildly tortuous esophagus without stricture or ring. No esophagitis or Abbott's. Esophageal balloon dilation of proximal and distal was performed with a 16.5 mm (49.5 F) CRE balloon x 60 seconds Stomach: Mild diffuse gastric erythema. Biopsies were obtained from the gastric body and antrum. Grade 2 flap valve on retroflexed examination of the cardia. Duodenum: Normal bulb and a medium sized diverticulum in the medial wall of descending duodenum Intervention: Biopsies and esophageal balloon dilation as noted above COLONOSCOPY PROCEDURE NOTE Consent: Indications for the procedure and potential complications of bleeding, perforation, reaction to medications and missed diagnosis were discussed with the patient and informed consent was obtained. Instrument: Olympus PCF H 190 L variable stiffness pediatric colonoscope Monitoring: Vital signs and clinical assessment, intermittent blood pressure monitoring, continuous EKG monitoring, Pulse oximetry and Carbon Dioxide monitoring were done throughout the procedure. Colon withdrawl time was 18 minutes. Procedure: The patient was placed in the left lateral decubitis position and pre-procedure medications were administered. After a digital rectal examination of the ano-rectum, the video colonoscope was inserted into the rectum and advanced through the colon to the cecum. The colonoscope was slowly withdrawn in a retrograde panoramic fashion and the colon mucosa was carefully examined including a retroflexed view of the rectum. Findings and interventions are described below. Procedure Difficulty: Colon was long and there was some loop formation Findings: Terminal Ileum: Not evaluated Cecum: Normal Ascending Colon: Moderate diverticulosis throughout the entire colon Transverse Colon: A 10 mm sessile polyp removed with a hot snare. A 7-8 mm sessile polyp - removed with a hot snare A 10-12 mm sessile polyp at 60 cms - removed with hot snare. Polypectomy site was closed with 1 hemoclip Descending Colon: Moderate diverticulosis Sigmoid Colon: Moderate diverticulosis Rectum: Normal Ano-rectum: Moderate internal hemorrhoids Colon preparation: Good after some irrigation [place] Bowel Preparation Scale Right colon; 2 Transverse colon: 2 Left colon; 2 (0 = Unprepared colon segment with mucosa not seen due to solid stool that cannot be cleared. 1 = Portion of mucosa of the colon segment seen, but other areas of the colon segment not well seen due to staining, residual stool and/or opaque liquid. 2 = Minor amount of residual staining, small fragments of stool and/or opaque liquid, but mucosa of colon segment seen well. 3 = Entire mucosa of colon segment seen well with no residual staining, small fragments of stool or opaque liquid) Impression and Post Procedure Diagnosis: Endoscopy Findings: ESOPHAGUS: Small hiatal hernia, mildly tortuous esophagus without stricture or ring. Empiric esophageal balloon dilation of proximal and distal esophagus with a 16.5 mm (49.5 F) CRE balloon STOMACH: Diffuse gastritis DUODENUM: A medium sized diverticulum in the medial wall of descending duodenum Impression and Post Procedure Diagnosis: Colonoscopy Findings: Three small to medium sized polyps were removed Moderate diverticulosis seen in the entire colon Moderate hemorrhoids on retroflexed exam. Plan: Pt has a FU appointment on 02/24/[address] Dumont Repeat Colonoscopy in 3-5 years if polyps are adenomatous and due to a hx of adenomatous colon polyps Above findings were reviewed with the patient and relevant handouts were given and the discharge area. BIOPSIES SHOWED: A. Gastric antrum, biopsy: Gastric antral mucosa with minimal chronic active gastritis and focal intestinal metaplasia; negative for dysplasia. B. Gastric body, biopsy: Gastric body mucosa with minimal chronic inactive gastritis; negative for intestinal metaplasia and dysplasia. C. Colon, transverse, polyps: Tubular adenomas, three; negative for high-grade dysplasia and carcinoma Letter sent advising repeat EGD (FU of gastric intestinal metaplasia) colonoscopy in 3 years. Pt placed on the recall list for EGD and Colon
[2024-02-11 11:20] VITALS: BP 114/62; PULSE 81; RESP 16; TEMP 36.1; O2SAT 96
[2024-02-11 11:35] VITALS: BP 136/81; PULSE 79; RESP 14; TEMP 36.1; O2SAT 98
== END 2024-02-11 12:04 | disposition home or self-care (01) ==
PROVIDERS: PCP Internal Medicine; Visit Provider Internal Medicine Gastroenterology
PROC: (CPT 45385; principal; 2024-02-11 10:10)
DX: Z12.11 Encounter for screening for malignant neoplasm of colon (principal); Z86.010 Personal history of colon polyps; Z80.0 Family history of malignant neoplasm of digestive organs; D12.3 Benign neoplasm of transverse colon; K57.30 Diverticulosis of large intestine without perforation or abscess without bleeding; K64.8 Other hemorrhoids; R13.14 Dysphagia, pharyngoesophageal phase; K22.89 Other specified disease of esophagus; K21.9 Gastro-esophageal reflux disease without esophagitis; K29.50 Unspecified chronic gastritis without bleeding; K57.10 Diverticulosis of small intestine without perforation or abscess without bleeding; K44.9 Diaphragmatic hernia without obstruction or gangrene; D64.9 Anemia, unspecified; I10 Essential (primary) hypertension; J45.909 Unspecified asthma, uncomplicated; N40.0 Benign prostatic hyperplasia without lower urinary tract symptoms; M10.9 Gout, unspecified; Z79.82 Long term (current) use of aspirin; Z79.51 Long term (current) use of inhaled steroids; Z79.899 Other long term (current) drug therapy; Z87.891 Personal history of nicotine dependence
CPT/HCPCS: 45385; 43249; 43239; 88305; 88342; C1726; J1596; J2704

== ENCOUNTER → 2024-02-11 07:54 | Outpatient (BNV) | payer MEDICARE, SELFPAY | PROVIDERS: PCP Internal Medicine; Visit Provider Internal Medicine Gastroenterology | DX: Z12.11 Encounter for screening for malignant neoplasm of colon (principal); Z86.010 Personal history of colon polyps; D12.3 Benign neoplasm of transverse colon; K57.90 Diverticulosis of intestine, part unspecified, without perforation or abscess without bleeding; K64.8 Other hemorrhoids; R13.10 Dysphagia, unspecified; K21.9 Gastro-esophageal reflux disease without esophagitis; K29.70 Gastritis, unspecified, without bleeding | CPT/HCPCS: 43239; 43249; 45385 ==

== ENCOUNTER 2024-03-07 07:06 | Outpatient (AMB) | payer MEDICARE, SELFPAY ==
--- NOTE | 2024-03-07 07:14 | MHC.OFFVIS ---
Vital Signs 03/07/24 07:19 Height 5 ft 4 in Weight 201 lb BMI 34.5 BP 125/58 L Blood Pressure Location Lt brachial Position Sitting Pulse 65 Intake Visit Reasons: s/p colon Intake Note: Patient follow up for dysphagia and EGD/Colonoscopy results. Patient denies any other GI issues. [employer] Mottle Supervisor Required: Yes Tile And [place]ottle Supervisor Name: Feliberto [id number] Accompanied by: Self / Same As Patient Allergies No Known Allergies Allergy (Verified 03/07/24 07:14) Medication List - Last Reconciled 03/07/24 by Jillian Dumont MD albuterol sulfate 90 mcg/actuation 2 puffs inhalation Q6H PRN amlodipine 10 mg PO DAILY aspirin (Adult Low Dose Aspirin) 81 mg PO DAILY atenolol 25 mg PO DAILY bismuth subcit S-[id number]-rmd 140-125-125 mg (Pylera) 3 caps PO QID 14 days cetirizine 10 mg PO DAILY PRN colchicine 0.6 mg PO DAILY fluticasone furoate-vilanterol 100-25 mcg/dose (Breo Ellipta) 1 ea inhalation QAM omeprazole 20 mg orally Once a day; Take 30 min before breakfast 90 days polyethylene glycol 3350 (Miralax) 17 grams PO DAILY PRN 30 days HPI HPI s/p colon: Details: GI clinic visit for this 88 year male for FU of colon polyps. TODAY'S VISIT: [facility] Sorting Grapple Operator, Feliberto # [id number] EGD and colon results were reviewed with the patient. Notes improvement in swallowing after dilation. PAST VISITS: Had a single episode of dysphagia a week ago while eating food Food ultimately passed and he did not have to regurgitate Denies recurrent episodes since then Patient denies any GI issues, patient is not taking Omeprazole because never received any other refills, he does not if he have to continue to take it or not EGD and colon results reviewed with the patient. Has intermittent heartburn depending on his diet and on no medications (was taking Ranitidine twice a day in the past).Patient denies symptoms of heartburn, dysphagia, nausea, vomiting, change in appetite or weight. Denies recent change in bowel habits, constipation, diarrhea, black stools. Intermittent BRBPR. Patient denies major cardiac or pulmonary problems. Pt has a hx of loud snoring and not tested for sleep apnea Denies problems with anesthesia in the past. Denies being on chronic anticoagulation. Brother from Colon Cancer ? at age 39 yrs. Complains of back pain. Social History Tobacco Use:? Tob acco Use/Smoking? Are you a: former smoker , How long has it been since you last smoked?: > 10 years.? Mi scellaneous:? Occ upation: retired. Dominant hand: left. Activity Level: very active. Marital status: . IMAGING STUDIES: 10/26/23 Barium swallow ENDOSCOPIC STUDIES: 12/15/22 EGD AND COLON SHOWED: Endoscopy Findings: STOMACH: Mild gastric erythema with a few chronic appearing erosions. DUODENUM: A medium sized diverticulum in the medial wall of descending duodenum Colonoscopy Findings: Two medium sized and one large polyps removed Moderate diverticulosis seen in the sigmoid colon Moderate hemorrhoids on retroflexed exam. Plan: Repeat Colonoscopy interval based on path results - in 3 years if polyps are adenomatous and 5 years if polyps are hyperplastic (adult colonoscope for future colonoscopies). 01/2018 COLONOSCOPY SHOWED:Ascending Colon ? A 15 mm sessile polyp removed with hot snareTransverse Colon - A 10 mm sessile polyp removed with cold snare. Some bleeding noted at polypectomy site controlled with cautery using the snare tip Descending Colon ? Normal Sigmoid Colon ? A 10 mm sessile polyp removed with hot snare Rectum ? Normal Anorectum - Moderate non inflammed internal hemorrhoids Colon preparation: Fair despite copious flushing and suctioning and poor in some areas of the colon Impression and Post Procedure Diagnosis: Colonoscopy Findings: Three polyps removed Moderate hemorrhoids on retroflexed exam. Fair prep and poor in some areas Plan: Await pathology results Patient has an appointment on 02/22/2018 in the GI Clinic with Jillian Dumont M.D. Repeat Colonoscopy in 1 year due to fair prep. Biopsies of polyps showed tubular adenoma PAST GI HISTORY BY REVIEW OF MEDICAL RECORDS: ?Patient had colooscopy on 03/17/2011 at [facility] for screening which showed: ?Diffuse melanosis coli throughout the colon. ?Two 8 - 10 mm sessile polyps were removed from the ascending colon. ?No diverticulii or hemorrhoids noted. ?Good prep. ?FU colonoscopy was advised in 6 months which was performed on 09/29/2011 and no polyps were seen. ?5 yr FU recommende [facility] Medical History Enlarged prostate Anemia Gout Asthma Hypertension Surgical History History of esophagogastroduodenoscopy (EGD) Hx of colonoscopy Hx of LASIK Family History Brother Colon cancer Social History Are you a primary medicare specialist to a significant other at home: No Do you presently have visiting nurse or other home services: No Patient Tobacco Use Status: Former Tobacco user Review of Systems Const All systems reviewed & are unremarkable except as noted in HPI and below Physical Exam Vital Signs: Last Vital Signs Pulse 65 03/07/24 07:19 BP 125/58 L 03/07/24 07:19 BMI result Body Mass Index 34.5 Const General: healthy appearing and no acute distress Nutritional Appearance: obese Orientation/consciousness: patient oriented x3 Limitations: language barrier HEENT Head: Yes normal to inspection Ears: hearing grossly normal bilaterally Eyes Sclerae: sclerae normal Pupils: Equal, round and reactive pupils present Neck Neck: Yes normal visual inspection Chest Chest palpation & inspection: normal inspection of the chest Resp Effort & Inspection: normal respiratory effort Auscultation: clear to auscultation bilaterally Cardio Palpation: normal PMI Rate: regular rate Rhythm: regular rhythm Heart sounds: S1 normal heart sound present, S2 normal heart sound present and no murmurs GI Inspection: Yes obesity Palpation (GI): Soft to palpation, nontender and No hepatosplenomegaly present Auscultation: normal bowel sounds Rectal Exam - Male: Yes deferred Skin General skin exam: no rashes or lesions noted Neuro General: patient oriented x3, gait normal and moves all extremities Cranial nerves: Yes Equal, round and reactive pupils present Psych Appearance: grossly normal Mental Status: mental status grossly normal Assessment & Plan Assessment & Plan (1) History of colon polyps: Comment: 2018 Pt had a colonoscopy and three medium sized polyps were removed. Repeat colon advised in 1 year due to suboptimal prep and not scheduled due to the pandemic Code(s): Z86.010 - Personal history of colon polyps Category: Medical (2) Family history of colon cancer: Comment: Brother - at age 49 yrs Code(s): Z80.0 - Family history of malignant neoplasm of digestive organs Category: Medical (3) Helicobacter pylori gastritis: Code(s): K29.70 - Gastritis, unspecified, without bleeding; B96.81 - Helicobacter pylori [H. pylori] as the cause of diseases classified elsewhere Category: Medical (4) Multiple duodenal ulcers: Code(s): K29.81 - Duodenitis with bleeding Category: Medical (5) Dysphagia, pharyngoesophageal phase: Code(s): R13.14 - Dysphagia, pharyngoesophageal phase Category: Medical Plan 88 YM with gout, asthma and hypertension here to schedule a colonoscopy due to history of colon polyps and family history of colon cancer. 2017 Pt had a colonoscopy and three medium sized polyps were removed. Repeat colon advised in 1 year due to suboptimal prep and not scheduled due to the pandemic Patient also complains of intermittent heartburn related to diet. 12/15/22 An upper endoscopy (GERD) and a colonoscopy (FU of colon polyps) were performed and findings as noted above. Gastric bx was positive for H Pylori. Pt was prescribed Pylera and Omeprazole 08/26/23 Had a single episode of dysphagia a week ago while eating food Food ultimately passed and he did not have to regurgitate Denies recurrent episodes since then. H Pylori breath test. Resume Omeprazole once a day after the breath test Pt advised to schedule a Barium swallow if he continues to have dysphagia 02/11/24 EGD and colon were performed and showed: Endoscopy Findings: ESOPHAGUS: Small hiatal hernia, mildly tortuous esophagus without stricture or ring. Empiric esophageal balloon dilation of proximal and distal esophagus with a 16.5 mm (49.5 F) CRE balloon STOMACH: Diffuse gastritis DUODENUM: A medium sized diverticulum in the medial wall of descending duodenum Impression and Post Procedure Diagnosis: Colonoscopy Findings: Three small to medium sized polyps were removed Moderate diverticulosis seen in the entire colon Moderate hemorrhoids on retroflexed exam. Plan: Repeat Colonoscopy in 3-5 years if polyps are adenomatous if pt remains in stable health. BIOPSIES SHOWED: A. Gastric antrum, biopsy: Gastric antral mucosa with minimal chronic active gastritis and focal intestinal metaplasia; negative for dysplasia. B. Gastric body, biopsy: Gastric body mucosa with minimal chronic inactive gastritis; negative for intestinal metaplasia and dysplasia. C. Colon, transverse, polyps: Tubular adenomas, three; negative for high-grade dysplasia and carcinoma Letter sent advising repeat EGD (FU of gastric intestinal metaplasia) colonoscopy in 3 years. Pt placed on the recall list for EGD and Colon. Pt was informed that EGD and colonoscopic surveillance can be discontinued given advanced age FU in 6 months Coding Level of Care Code Est Pt Level 3 (40179) Diagnoses History of colon polyps Z86.010 Family history of colon cancer Z80.0 Helicobacter pylori gastritis K29.70; B96.81 Multiple duodenal ulcers K29.81 Dysphagia, pharyngoesophageal phase R13.14 Time Spent (min) 20
[2024-03-07 07:19] VITALS: BP 125/58; PULSE 65; BMI 34.5
== END 2024-03-07 07:45 | disposition home or self-care (01) ==
PROVIDERS: PCP Internal Medicine; Visit Provider Internal Medicine Gastroenterology
DX: Z86.0100 Personal history of colon polyps, unspecified (principal); Z80.0 Family history of malignant neoplasm of digestive organs; K29.70 Gastritis, unspecified, without bleeding; B96.81 Helicobacter pylori [H. pylori] as the cause of diseases classified elsewhere; K29.81 Duodenitis with bleeding; R13.14 Dysphagia, pharyngoesophageal phase
CPT/HCPCS: 99213

== ENCOUNTER → 2024-03-07 07:06 | Outpatient (BNVA) | payer MEDICARE, SELFPAY | PROVIDERS: PCP Internal Medicine; Visit Provider Internal Medicine Gastroenterology | DX: K29.70 Gastritis, unspecified, without bleeding (principal); K29.81 Duodenitis with bleeding; B96.81 Helicobacter pylori [H. pylori] as the cause of diseases classified elsewhere; R13.14 Dysphagia, pharyngoesophageal phase; Z80.0 Family history of malignant neoplasm of digestive organs; Z86.0100 Personal history of colon polyps, unspecified | CPT/HCPCS: 99212 ==

== ENCOUNTER 2024-07-04 08:24 | Outpatient (REF) | payer MEDICARE, SELFPAY ==
--- OUTSIDE RECORDS SUMMARY | 2024-07-04 08:39 | XMS_ITS | Encounter Summary ---
Author Organization [employer] Address [address] [place] [address] Care Team Providers Care Solution Design Engineer Name Role Phone Hoang Yusuf MD Primary Care Provide r Encounter Details Date Type Department Care Team (Late st Contact Info) Description 03/18/2023 Orders Only [facility] CH[facility] MED & PEDS [address] [place], [place] [phone] Simran Mak LPN Social History Tobacco Use Types Packs/Day Years Used Date Smoking Tobacco: Former Cigarettes Passive Smoke Exposure: Past Smokeless Tobacco: Never Depression Answer Date Recorded Patient Health Questionnaire-9 Score 0 08/06/2022 Housing Stability Answer Date Recorded What is your housing situation today? I have mono gtz 03/16/[address] you li ve. Do you have problems with any of the following? None of the above 03/16/2023 Food Insecurity Answer Date Recorded Within the past 12 months, y ou worried that your food would run out before you got money to buy more: Never True 03/16/2023 Within the past 12 months,th e food you bought just didn't last and you didn't have enough money to get more: Never True Transportation Answer Date Recorded In the past 12 months, has l ack of transportation kept you from medical appts, meetings, work or from getting things needed for daily living? No 03/16/2023 Utilities Answer Date Recorded In the past 12 months, has t he electric, gas, oil or water company threatened to shut off services in your home? No 03/16/2023 Depression Answer Date Recorded Patient Health Questionnaire-2 Score 0 08/06/2022 Sex and Gender Information Value Date Recorded Sex Assigned at Male 03/16/2022 10:16 AM EDT Legal Sex Male 10:16 AM EDT Gender Identity Male 03/16/2022 10:16 AM EDT Sexual Orientation Straight 03/16/2022 10 :16 AM EDT documented as of this encounter Plan of Treatment Upcoming Encounters Date Type Department Care Team (Late st Contact Info) Description 10/03/2024 10:15 AM EDT Office Visit [facility] MEDICINE [address] [place] [address] Hoang Yusuf MD [address] [place] [address] documented as of this encounter Visit Diagnoses Not on filedocumented in this encounter Additional Health Concerns Assessment Noted Time PHQ-9 Depression Total Score: 0 08/07/19 23 11:34 AM EDT documented as of this encounter Care Teams Solution Design Engineer Relationship Specialty Start Date End Date Hoang Yusuf MD [address] [place] [address] PCP - General Internal Medicine 02/02/14 documented as of this encounter
--- OUTSIDE RECORDS SUMMARY | 2024-07-04 08:39 | XMS_ITS | Encounter Summary ---
Author Organization [employer] Address [address] [place] [address] Care Team Providers Care Cnc Field Service Engineer Name Role Phone Hoang Yusuf MD Primary Care Provide r Encounter Details Date Type Department Care Team (Latest Contact Info) Description 06/13/2024 Travel Social History Tobacco Use Types Packs/Day Years Used Date Smoking Tobacco: Former Cigarettes Passive Smoke Exposure: Past Smokeless Tobacco: Never Alcohol Answer Date Recorded How often do you have a drink containing alcohol ? 0 06/13/2024 How many drinks containing a lcohol do you have on a typical day when you are drinking? 1 06/13/2024 How often do you have six or more drinks on one occasion? 0 06/13/2024 Depression Answer Date Recorded Patient Health Questionnaire-9 Score 0 01/13/2024 Patient Health Questionnaire-9 Score 0 01/13/2024 Last PHQ-9: Questionnaire Data Not on file 0 01/13/2024 Housing Stability Answer Date Recorded What is your housing situation today? I have mononatalie gtz 06/01/[address] you li ve. Do you have problems with any of the following? None of the above 06/01/2024 Food Insecurity Answer Date Recorded Within the past 12 months, y ou worried that your food would run out before you got money to buy more: Never True 06/01/2024 Within the past 12 months,th e food you bought just didn't last and you didn't have enough money to get more: Never True Transportation Answer Date Recorded In the past 12 months, has l ack of transportation kept you from medical appts, meetings, work or from getting things needed for daily living? No 06/01/2024 Utilities Answer Date Recorded In the past 12 months, has t he electric, gas, oil or water company threatened to shut off services in your home? No 06/01/2024 Depression Answer Date Recorded Patient Health Questionnaire-2 Score 0 01/13/2024 Internet Access Answer Date Recorded Internet Access Q1 Yes 06/01/2024 Internet Access Q2 Not on file 06/01/2024 Sex and Gender Information Value Date Recorded Sex Assigned at Male 03/16/2022 10:16 AM EDT Legal Sex Male 10:16 AM EDT Gender Identity Male 03/16/2022 10:16 AM EDT Sexual Orientation Straight 03/16/2022 10 :16 AM EDT documented as of this encounter Plan of Treatment Upcoming Encounters Date Type Department Care Team (Late st Contact Info) Description 10/03/2024 10:15 AM EDT Office Visit [facility] MEDICINE [address] [place] [address] Hoang Yusuf MD [address] [place] [address] documented as of this encounter Visit Diagnoses Not on filedocumented in this encounter Additional Health Concerns Assessment Noted Time PHQ-9 Depression Total Score: 0 01/13/20 24 9:08 AM EDT documented as of this encounter Care Teams Cnc Field Service Engineer Relationship Specialty Start Date End Date Hoang Yusuf MD [address] [place] [address] PCP - General Internal Medicine 02/02/14 documented as of this encounter
--- OUTSIDE RECORDS SUMMARY | 2024-07-04 08:39 | XMS_ITS | Encounter Summary ---
Author Organization [employer] Address [address] [place] [address] Care Team Providers Care Production Underwriter Name Role Phone Hoang Yusuf MD Primary Care Provide r Encounter Details Date Type Department Care Team (Late st Contact Info) Description 03/04/2023 Orders Only [facility] CHC MED & PEDS [address] [place], [place] [phone] Michelle Fonseca LPN Social History Tobacco Use Types Packs/Day Years Used Date Smoking Tobacco: Never Assessed Depression Answer Date Recorded Patient Health Questionnaire-9 Score 0 08/06/2022 Depression Answer Date Recorded Patient Health Questionnaire-2 [...] Description 10/03/2024 10:15 AM EDT Office Visit [facility] MEDICINE [address], [place] [phone] Hoang Yusuf MD [address] [place], [place] [phone] documented as of this encounter Visit Diagnoses Not on filedocumented in this encounter Additional Health Concerns Assessment Noted Time PHQ-9 Depression Total Score: 0 08/07/19 23 11:34 AM EDT documented as of this encounter Care Teams Production Underwriter Relationship Specialty Start Date End Date Hoang Yusuf MD [address] [place] [id number] PCP - General Internal Medicine 02/02/14 documented as of this encounter
--- OUTSIDE RECORDS SUMMARY | 2024-07-04 08:39 | XMS_ITS | Encounter Summary ---
Author Organization [email or web address] Address [address] [facility] [address] [place] [address] Care Team Providers Care Tool Filer Name Role Phone Hoang Yusuf MD Primary Care Provide r Reason for Visit * Reason Comments Hypertension Encounter Details Date Type Department Care Team ([facility] st Contact Info) Description 06/13/2024 1:15 PM EST Office Visit [facility] [address] [place] [address] Hoang Yusuf MD [address] [place], [place] [phone] Primary hypertension (Primary Dx); Esophageal hiatal hernia; Oral phase dysphagia; Tubular adenoma of colon; Mild chronic obstructive pulmonary disease (CMS/HCC); Preventative health care; Dietary counseling; Exercise counseling; Class 2 severe obesity due to excess calories with serious comorbidity and body mass index (BMI) of 35.0 to 35.9 in adult (CMS/HCC); Encounter for immunization Social History Tobacco Use Types Packs/Day Years [...] housing situation today? I have mono gtz 06/01/[address] you [...] AM EDT documented as of this encounter Last Filed Vital Signs Vital Sign Reading Time Taken Comments Blood Pressure 125/71 06/13/2024 12:59 PM EST Pulse 65 06/13/2024 12:59 PM EST Temperature 36.2 ??C (97.1 ??F) 06/13/2024 12:[address] Respiratory Rate 20 06/13/2024 12:59 PM EST Oxygen Saturation 97% 06/13/2024 12:59 PM EST Inhaled Oxygen Concentration - - Weight 93.4 kg (206 lb) 06/13/2024 12:59 PM EST Height 162.6 cm (5' 4 ) 06/13/2024 12:59 PM EST Body Mass Index 35.36 06/13/2024 12:59 PM EST documented in this encounter Progress Notes * Hoang Rees MD - 06/13/2024 1:15 PM EST SUBJECTIVE Daquan Vela is a 88 y.o. male who presents for Hypertension. Hypertension This is a chronic problem. Pertinent negatives include no chest pain, headaches or shortness of breath. Review of Systems Constitutional: Negative for fever. HENT: Negative for sore throat. Respiratory: Negative for cough and shortness of breath. Cardiovascular: Negative for chest pain. Gastrointestinal: Negative for abdominal pain. Neurological: Negative for headaches. Allergies Allergen Reactions Lisinopril Cough OBJECTIVE Vitals: 06/13/24 1259 BP: 125/71 BP Location: Left arm Patient Position: Sitting BP Cuff Size: Large adult Pulse: 65 Resp: 20 Temp: 97.1 ??F (36.2 ??C) TempSrc: Temporal SpO2: 97% Weight: 206 lb (93.4 kg) Height: 5' 4 (1.626 m) Physical Exam Vitals reviewed. Constitutional: Appearance: Normal appearance. HENT: Head: Normocephalic and atraumatic. Right Ear: External ear normal. Left Ear: External ear normal. Nose: Nose normal. Mouth/Throat: Mouth: Mucous membranes are moist. Eyes: Conjunctiva/sclera: Conjunctivae normal. Cardiovascular: Rate and Rhythm: Normal rate and regular rhythm. Pulmonary: Effort: Pulmonary effort is normal. Breath sounds: Normal breath sounds. Skin: General: Skin is warm. Neurological: Mental Status: He is alert. Mental status is at baseline. Assessment/Plan Problem List Items Addressed This Visit Hypertension - Primary Patient is here for a follow up BP remains controlled pt reports compliance with medications He is on a regimen of: Norvasc 10 mg po daily and Atenolol 25 mg po daily. Of note Lisinopril caused him dry cough and throat pruritus Most recent electrolytes, Bun and Creatinine done on: 03/23/2023 swere within normal limits Plan: Continue current regimen, repeat BMP Patient is not a good candidate for Thiazide diuretics due to his Hx of Gout patient advised to adhere to a low sodium diet, encouraged about medication compliance, counseled about weight loss. f/u 4 months Relevant Orders Lipid Panel, Standard Comprehensive Metabolic Panel Esophageal hiatal hernia Pt s/p EGD 02/11/2024 Dr dumont Endoscopy Findings: ESOPHAGUS: Small hiatal hernia, mildly tortuous esophagus without stricture or ring. Empiric esophageal balloon dilation of proximal and distal esophagus with a 16.5 mm (49.5 F) CRE balloon STOMACH: Diffuse gastritis DUODENUM: A medium sized diverticulum in the medial wall of descending duodenum Oral phase dysphagia Under the care of GI Dr. Dumont who ordered a Barium Swallow 10/26/2023 that showed: barium swallow IMPRESSION: 1. 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 2. Small type I hiatal hernia. 3. Moderate gastroesophageal reflux. 4. Second segment duodenal diverticulum. 5. Rapid transit of the barium, in which the right colon was opacified at the examination. Etiology unknown. Pt s/p EGD 02/11/2024 Dr dumont Endoscopy Findings: ESOPHAGUS: Small hiatal hernia, mildly tortuous esophagus without stricture or ring. Empiric esophageal balloon dilation of proximal and distal esophagus with a 16.5 mm (49.5 F) CRE balloon STOMACH: Diffuse gastritis DUODENUM: A medium sized diverticulum in the medial wall of descending duodenum Plan as per Dr. Dumont GI Tubular adenoma of colon He has hx of tubular adenoma. Repeat colonoscopy done at [facility] 12/2022 showed a tubular adenoma a 5 year f/u. Repeat 02/11/2024 showed: Colonoscopy Findings: Three small to medium sized polyps were removed (tubular adenomas) Moderate diverticulosis seen in the entire colon Moderate hemorrhoids on retroflexed exam. 3 to 5 year follow up recommended Mild chronic obstructive pulmonary disease ([facility]/HCC) Here for a follow up He is under the care of dispute specialist dr Sanchez On [facility] PSA: 08/26/2022 [place] with [place] [facility] [place] /Repeat Colonoscopy at [facility] 02/03/2018 showed 3 Tubular adenomas 5 yr f/u. Repeat Colonoscopy 12/15/2022 Showed tubular adenoma again /Repeat 02/11/2024 showed 3 tubular adenomas 3-5 yr follow up recommended Class 2 severe obesity due to excess calories with serious comorbidity and body mass index (BMI) of35.0 to 35.9 in adult ([facility]) Patient has been counseled and educated about diet and exercise. Personal goal of weight loss discussedPatient has comorbidity of:Patient has comorbidity of: HTN Dietary Recommendations: Fruits, vegetables, whole grains, protein foods, and fat-free or low-fat dairy products are healthychoices. Eat different types of protein foods in your diet. This can include seafood, lean meats, poultry, beans, peas, lentils, nuts, seeds, soy products, and eggs. Limit foods and beverages higher in added sugars, saturated fat, and sodium. Exercise Recommendations: At least 150 minutes of moderate-intensity physical activity per week, or an equivalent combinationof moderate- and vigorous-intensity activity Other Visit Diagnoses Dietary counseling Exercise counseling documented in this encounter Miscellaneous Notes * Addendum Note - Rosy Ward RN - 06/13/2024 1:15 PM ESTAddended by: ROSY WARD on: 06/13/2024 01:34 PM Modules accepted: Orders * Assessment & Plan Note - Hoang Rees MD - 06/13/2024 12:51 PM EST Associated Problem(s): Class 2 severe obesity due to excess calories with serious comorbidity and body mass index (BMI) of 35.0 to 35.9 in adult ([facility]) Patient has been counseled and educated about diet and exercise. Personal goal of weight loss discussedPatient has comorbidity of:Patient has comorbidity of: HTN Dietary Recommendations: Fruits, vegetables, whole grains, protein foods, and fat-free or low-fat dairy products are healthychoices. Eat different types of protein foods in your diet. This can include seafood, lean meats, poultry, beans, peas, lentils, nuts, seeds, soy products, and eggs. Limit foods and beverages higher in added sugars, saturated fat, and sodium. Exercise Recommendations: At least 150 minutes of moderate-intensity physical activity per week, or an equivalent combinationof moderate- and vigorous-intensity activity * Assessment & Plan Note - Hoang Rees MD - 06/13/2024 10:02 AM EST Associated Problem(s): Hypertension Patient is here for a follow up BP remains controlled pt reports compliance with medications He is on a regimen of: Norvasc 10 mg po daily and Atenolol 25 mg po daily. Of note Lisinopril caused him dry cough and throat pruritus Most recent electrolytes, Bun and Creatinine done on: 03/23/2023 swere within normal limits Plan: Continue current regimen, repeat BMP Patient is not a good candidate for Thiazide diuretics due to his Hx of Gout patient advised to adhere to a low sodium diet, encouraged about medication compliance, counseled about weight loss. f/u 4 months * Assessment & Plan Note - Hoang Rees MD - 06/13/2024 9:59 AM EST Associated Problem(s): Mild chronic obstructive pulmonary disease (CMS/HCC) Here for a follow up He is under the care of dispute specialist dr Sanchez On [employer] and [employer] * Assessment & Plan Note - Hoang Rees MD - 06/13/2024 9:55 AM EST Associated Problem(s): Oral phase dysphagia Under the care of GI Dr. Dumont who ordered a Barium Swallow 10/26/2023 that showed: barium swallow IMPRESSION: 1. 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 2. Small type I hiatal hernia. 3. Moderate gastroesophageal reflux. 4. Second segment duodenal diverticulum. 5. Rapid transit of the barium, in which the right colon was opacified at the examination. Etiology unknown. Pt s/p EGD 02/11/2024 Dr dumont Endoscopy Findings: ESOPHAGUS: Small hiatal hernia, mildly tortuous esophagus without stricture or ring. Empiric esophageal balloon dilation of proximal and distal esophagus with a 16.5 mm (49.5 F) CRE balloon STOMACH: Diffuse gastritis DUODENUM: A medium sized diverticulum in the medial wall of descending duodenum Plan as per Dr. Dumont GI * Assessment & Plan Note - Hoang Rees MD - 06/13/2024 9:55 AM EST Associated Problem(s): Preventative health care PSA: 08/26/2022 [place] [facility] [place] /Repeat Colonoscopy at [facility] 02/03/2018 showed 3 Tubular adenomas 5 yr f/u. Repeat Colonoscopy 12/15/2022 Showed tubular adenoma again /Repeat 02/11/2024 showed 3 tubular adenomas 3-5 yr follow up recommended * Assessment & Plan Note - Hoang Rees MD - 06/13/2024 9:46 AM EST Associated Problem(s): Tubular adenoma of colon He has hx of tubular adenoma. Repeat colonoscopy done at [facility] 12/2022 showed a tubular adenoma a 5 year f/u. Repeat 02/11/2024 showed: Colonoscopy Findings: Three small to medium sized polyps were removed (tubular adenomas) Moderate diverticulosis seen in the entire colon Moderate hemorrhoids on retroflexed exam. 3 to 5 year follow up recommended * Assessment & Plan Note - Hoang Rees MD - 06/13/2024 9:44 AM EST Associated Problem(s): Esophageal hiatal hernia Pt s/p EGD 02/11/2024 Dr dumont Endoscopy Findings: ESOPHAGUS: Small hiatal hernia, mildly tortuous esophagus without stricture or ring. Empiric esophageal balloon dilation of proximal and distal esophagus with a 16.5 mm (49.5 F) CRE balloon STOMACH: Diffuse gastritis DUODENUM: A medium sized diverticulum in the medial wall of descending duodenum documented in this encounter Plan of Treatment Upcoming Encounters Date Type Department Care Team (Late st Contact Info) Description 10/03/2024 10:15 AM EDT Office Visit [facility] MED[facility] [address] [place] [address] Hoang Yusuf MD [address] [place] [address] Scheduled Orders Name Type Priority Associated Diagnoses Orde r Schedule Lipid Panel, Standard Lab Routine Primary hypertension Ordered: 06/13/2024 Comprehensive Metabolic Panel Lab Routine Primary hypertension Ordered: 06/13/2024 documented as of this encounter Visit Diagnoses Diagnosis Primary hypertension- Primary Unspecified essential hypertension Esophageal hiatal hernia Diaphragmatic hernia without mention of obstruction or gangrene Oral phase dysphagia Dysphagia, oral phase Tubular adenoma of colon Benign neoplasm of colon Mild chronic obstructive pulmonary disease (CMS/HCC) Chronic airway obstruction, not elsewhere classified Preventative health care Routine general medical examination at a health care facility Dietary counseling Dietary surveillance and counseling Exercise counseling Class 2 severe obesity due to excess calories with serious comorbidity and body mass index (BMI) of 35.0 to 35.9 in adult (CMS/HCC) Encounter for immunization documented in this encounter Additional Health Concerns Assessment Noted Time PHQ-9 Depression Total Score: 0 01/13/20 24 9:08 AM EDT documented as of this encounter Care Teams Tool Filer Relationship Specialty Start Date End Date Hoang Yusuf MD [address] [place] [address] PCP - General Internal Medicine 02/02/14 documented as of this encounter
--- OUTSIDE RECORDS SUMMARY | 2024-07-04 08:39 | XMS_ITS | Encounter Summary ---
Author Organization [employer] Address [address] [place] [address] Care Team Providers Care Cook Box Filler Name Role Phone Hoang Yusuf MD Primary Care Provide r Encounter Details Date Type Department Care Team (Late st Contact Info) Description 06/02/2023 Orders Only [facility] [address] [place], [place] [phone] Simran Mak LPN Social History Tobacco Use [...] Description 10/03/2024 10:15 AM EDT Office Visit [facility] [address] [place] [address] Hoang Yusuf MD [address] [place] [address] documented as of this encounter Visit Diagnoses Not on filedocumented in this encounter Additional Health Concerns Assessment Noted Time PHQ-9 Depression Total Score: 0 08/07/19 23 11:34 AM EDT documented as of this encounter Care Teams Cook Box Filler Relationship Specialty Start Date End Date Hoang Yusuf MD [address] [place] [address] PCP - General Internal Medicine 02/02/14 documented as of this encounter
--- OUTSIDE RECORDS SUMMARY | 2024-07-04 08:39 | XMS_ITS | Clinical Summary ---
Author Organization [employer] Address [address] [facility] [address] [place] [address] Care Team Providers Care Pressure Vessel Inspector Name Role Phone Hoang Yusuf MD Primary Care Provide r Allergies Active Allergy Reactions Criticality Noted Date Comments Lisinopril Cough 02/09/2017 Medications cetirizine (ZyrTEC) 10 MG tabletIndication s:Seasonal allergies Take 1 tablet (10 mg) by mouth in the morning. 30 tablet 2 3 Active albuterol (2.5 MG/3ML) 0.083% nebulizer solution INHALE 1 VIAL VIA NEBULIZATION EVERY 4-6 HOURS NEEDED FOR COUGH, WHEEZING OR SHORTNESS OF BREATH 180 mL 1 3 Active aspirin (Aspirin Low Dose) 81 MG EC tabletIndication s:Preventative health care Take 1 tablet (81 mg) by mouth in the morning. 90 tablet 11 4 Active colchicine 0.6 MG tabletIndication s:Chronic gout of multiple sites, unspecified cause TAKE 1 TABLET BY MOUTH INITIALLY, THEN TAKE 1 TABLET BY MOUTH IN 1 HOUR NEEDED FOR PAIN 30 tablet 5 4 Active Breo Ellipta 100-25 MCG/ACT aerosol powderIndication s:Chronic obstructive pulmonary disease, unspecified COPD type (CMS/HCC) INHALE 1 PUFF BY MOUTH IN THE MORNING 60 each 2 4 Active atenolol (Tenormin) 25 MG tablet TAKE 1 TABLET BY MOUTH EVERY DAY 90 tablet 1 5 Active amLODIPine (Norvasc) 10 MG tabletIndication s:Primary hypertension TAKE 1 TABLET(10 MG) BY MOUTH IN THE MORNING 90 tablet 1 5 Active Active Problems Problem Noted Date Diagnosed Date Esophageal hiatal hernia 06/13/2024 Assessment & Plan (06/13/2024 9:44 AM EST): Pt s/p EGD 02/11/2024 Dr hale Endoscopy Findings: ESOPHAGUS: Small hiatal hernia, mildly tortuous esophagus without stricture or ring. Empiric esophageal balloon dilation of proximal and distal esophagus with a 16.5 mm (49.5 F) CRE balloon STOMACH: Diffuse gastritis DUODENUM: A medium sized diverticulum in the medial wall of descending duodenum Oral phase dysphagia 01/13/2024 Assessment & Plan (06/13/2024 9:56 AM EST): Under the care of GI Dr. Hale who ordered a Barium Swallow 10/26/2023 that [...] Etiology unknown. Pt s/p EGD 02/11/2024 Dr hale Endoscopy Findings: ESOPHAGUS: Small hiatal hernia, mildly tortuous esophagus without stricture or ring. Empiric esophageal balloon dilation of proximal and distal esophagus with a 16.5 mm (49.5 F) CRE balloon STOMACH: Diffuse gastritis DUODENUM: A medium sized diverticulum in the medial wall of descending duodenum Plan as per Dr. Hale GI Assessment & Plan (01/13/2024 9:14 AM EDT): Under the care of GI Dr. Hale who ordered a Barium Swallow 10/26/2023 that showed: barium swallow IMPRESSION: 1. 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 2. Small type I hiatal hernia. 3. Moderate gastroesophageal reflux. 4. Second segment duodenal diverticulum. 5. Rapid transit of the barium, in which the right colon was opacified at the examination. Etiology unknown. Plan as per Dr. Hale GI, has a follow up 02/11/2024 Chronic anemia 08/06/2022 Assessment & Plan (08/06/2022 9:32 AM EDT): Pt with hx. of iron deficiency anemia. Previous diagnostic work up included an EGD 09/2005 negative and a repeat colonoscopy 09/29/11 that aside from melanosis in the colon was otherwise normal. Pt was last seen by business employment specialist Dr Iglesias last seen 05/2014. Repeat CBC wnl. [facility] health care 08/06/2022 Assessment & Plan (06/13/2024 9:55 AM EST): PSA: 08/26/2022 Normal colonoscopy with melanosis September 2011 at [facility] with h/o tubular adenoma /Repeat Colonoscopy at [facility] 02/03/2018 showed 3 Tubular adenomas 5 yr f/u. Repeat Colonoscopy 12/15/2022 Showed tubular adenoma again /Repeat 02/11/2024 showed 3 tubular adenomas 3-5 yr follow up recommended Assessment & Plan (01/13/2024 9:17 AM EDT): PSA: 08/26/2022 Normal Vaccines: Tdap 02/02/2014 pneumovax May 2008 Prevnar: 12/27/2014 zostavax Jan 2012 at [facility] colonoscopy with melanosis September 2011 at [facility] with h/o tubular adenoma for rescreening 5yrs. Repeat Colonoscopy at [facility] this time 02/03/2018 showed 3 Tubular adenomas 5 yr f/u. Repeat Colonoscopy 12/15/2022 Showed tubular adenoma again Assessment & Plan (07/15/2023 3:00 PM EST): PSA: 08/26/2022 Normal Vaccines: Tdap 02/02/2014 pneumovax May 2008 Prevnar: 12/27/2014 zostavax Jan 2012 at [facility] colonoscopy with melanosis September 2011 at [facility] with h/o tubular adenoma for rescreening 5yrs. Repeat Colonoscopy at [facility] this time 02/03/2018 showed 3 Tubular adenomas 5 yr f/u. Repeat Colonoscopy 12/15/2022 Showed tubular adenoma again Assessment & Plan (03/16/2023 8:48 AM EDT): PSA: 08/26/2022 Normal Vaccines: flu vaccine: Tdap 02/02/2014 pneumovax May 2008 Prevnar: 12/27/2014 zostavax Jan 2012 at [facility] colonoscopy with melanosis September 2011 at [facility] with h/o tubular adenoma for rescreening 5yrs. Repeat Colonoscopy at [facility] this time 02/03/2018 showed 3 Tubular adenomas 5 yr f/u. Repeat 12/15/2022 Showed tubular adenoma again Assessment & Plan (08/06/2022 9:33 AM EDT): HUBER: At Urologist office. PSA 11/07/2018 was 4.89 Urologist recommended to recheck in 1 year Vaccines: flu vaccine: Tdap 02/02/2014 pneumovax May 2008 Prevnar: 12/27/2014 zostavax Jan 2012 at [facility] colonoscopy with melanosis September 2011 at [facility] with h/o tubular adenoma for rescreening 5yrs. Repeat Colonoscopy at [facility] this time 02/03/2018 showed 3 Tubular adenomas 5 yr f/u Class 2 severe obesity due t o excess calories with serious comorbidity and body mass index (BMI) of 35.0 to 35.9 in adult 08/06/2022 Assessment & Plan (06/13/2024 12:51 PM EST): Patient has been counseled and educated about diet and exercise. Personal goal of weight loss discussedPatient has comorbidity of:Patient has comorbidity of: HTN Dietary Recommendations: Fruits, vegetables, whole grains, protein foods, and fat-free or low-fat dairy products are healthy choices. Eat different types of protein foods in your diet. This can include seafood, lean meats, poultry, beans, peas, lentils, nuts, seeds, soy products, and eggs. Limit foods and beverages higher in added sugars, saturated fat, and sodium. Exercise Recommendations: At least 150 minutes of moderate-intensity physical activity per week, or an equivalent combination of moderate- and vigorous-intensity activity Assessment & Plan (01/13/2024 9:10 AM EDT): Patient has been counseled and educated about diet and exercise. Personal goal of weight loss discussedPatient has comorbidity of:Patient has comorbidity of: HTN Assessment & Plan (07/15/2023 3:01 PM EST): Patient has been counseled and educated about diet and exercise. Personal goal of weight loss discussedPatient has comorbidity of:Patient has comorbidity of: HTN Assessment & Plan (11/03/2022 9:03 AM EDT): Televisit Patient has been counseled and educated about diet and exercise. Personal goal of weight loss discussedPatient has comorbidity of:Patient has comorbidity of: HTN Assessment & Plan (08/06/2022 11:49 AM EDT): Patient has been counseled and educated about diet and exercise. Personal goal of weight loss discussedPatient has comorbidity of:Patient has comorbidity of: HTN Tubular adenoma of colon 2017 Assessment & Plan (06/13/2024 9:46 AM EST): He has hx of tubular adenoma. Repeat colonoscopy done at [facility] 12/2022 showed a tubular adenoma a 5 year f/u. Repeat 02/11/2024 showed: Colonoscopy Findings: Three small to medium sized polyps were removed (tubular adenomas) Moderate diverticulosis seen in the entire colon Moderate hemorrhoids on retroflexed exam. 3 to 5 year follow up recommended Assessment & Plan (03/16/2023 8:47 AM EDT): He has hx of tubular adenoma. Repeat colonoscopy done at [facility] 12/2022 showed a tubular adenoma a 5 year f/u. Assessment & Plan (08/06/2022 9:30 AM EDT): He has hx of tubular adenoma. Repeat colonoscopy done at [facility] GI 09/26/2011 did not show a polyp but given his family hx and Hx of tubular adenoma GI specialist recommended a 5 year f/u. Pt had the Colonoscopy at [facility] this time 02/03/2018 showed 3 Tubular adenomas 5 yr f/u Moderate persistent asthma 02/14/2015 Assessment & Plan (07/15/2023 2:53 PM EST): No recent exacerbations He has a Hx of small bilateral pulmonary nodules. continue to follow with Pulmonary Assessment & Plan (08/06/2022 9:30 AM EDT): No recent exacerbations Last seen by Dr Sanchez on 02/02/2019 who recommended to continue Flovent 100 mcg 1 puff BID and Pro-air MDI 1 to 2 puffs qid prn. He has a Hx of small bilateral pulmonary nodules. continue to follow with Pulmonary Benign prostatic hyperplasia 06/15/2014 Assessment & Plan (01/13/2024 9:17 AM EDT): Used to be under the care of [facility]. Last seen 07/29/2023, they recommended to STOP checking PSA PSA 08/27/2022 3.7 Assessment & Plan (08/06/2022 9:12 AM EDT): Used to be under the care of [facility]. On 11/07/2018 PSA on that visit 4.89 They recommended a 1 yr f/u, pt tells me he was told 2 year f/u Repeat PSA 07/17/2021 was 4.74 Pt tells me he went to see Urologist a couple of months ago. records requested Mild chronic obstructive pulmonary disease 04/05 Assessment & Plan (06/13/2024 9:59 AM EST): Here for a follow up He is under the care of it desktop support specialist dr Sanchez On Breo Ellipta and Pro-Air Assessment & Plan (07/15/2023 2:52 PM EST): Here for a follow up He is under the care of it desktop support specialist dr Sanchez On Kimberlyn Ellipta and Pro-Air Assessment & Plan (11/03/2022 9:04 AM EDT): Televisit Under the care of it desktop support specialist dr Sanchez Last seen 07/23/2021 On Kimberlyn Ellipta and Pro-Air Gout 01/11/2012 Assessment & Plan (08/06/2022 9:31 AM EDT): No recent flare ups pt with intermittent c/o right and sometimes left first great toe pain and swelling, seen in the ER with a working diagnosis of Gout. treated with Colchicine PRN with excellent results. uric acid on 08/18/11 was elevated at 7.8 Pt is on Allopurinol 100 mg po daily. Hypertension 2011 Assessment & Plan (06/13/2024 10:02 AM EST): Patient is here for a follow up [...] counseled about weight loss. f/u 4 months Assessment & Plan (01/13/2024 9:09 AM EDT): Patient is here for a follow up BP remains controlled pt reports compliance with medications He is on a regimen of: Norvasc 10 mg po daily and Atenolol 25 mg po daily. Of note Lisinopril caused him dry cough and throat pruritus Most recent electrolytes, Bun and Creatinine done on: 03/23/2023 swere within normal limits Plan: Continue current regimen Patient is not a good candidate for Thiazide diuretics due to his Hx of Gout patient advised to adhere to a low sodium diet, encouraged about medication compliance, counseled about weight loss. f/u 4 months Assessment & Plan (07/15/2023 2:54 PM EST): Patient is here for a follow up BP remains controlled pt reports compliance with medications He is on a regimen of: Norvasc 10 mg po daily and Atenolol 25 mg po daily. Of note Lisinopril caused him dry cough and throat pruritus Most recent electrolytes, Bun and Creatinine done on: 03/23/2023 swere within normal limits Plan: Continue current regimen Patient is not a good candidate for Thiazide diuretics due to his Hx of Gout patient advised to adhere to a low sodium diet, encouraged about medication compliance, counseled about weight loss. f/u 4 months Assessment & Plan (03/16/2023 8:46 AM EDT): Televisit BP remains controlled per his reports, has a BP monitor at home pt reports compliance with medications He is on a regimen of: Norvasc 10 mg po daily and Atenolol 25 mg po daily. Recently saw his Electrical Hardware Engineer Dr Neumann 10/06/2022 Of note Lisinopril caused him dry cough and throat pruritus Most recent electrolytes, Bun and Creatinine done on: 08/2022 showed a mildly elevated Scr 1.24 Plan: Continue current regimen Pt not a good candidate for Thiazide diuretics due to his Hx of Gout patient advised to adhere to a low sodium diet, encouraged about medication compliance, counseled about weight loss. f/u 4 months. with me in person Assessment & Plan (11/03/2022 8:58 AM EDT): Televisit BP remains controlled per his reports, has a BP monitor at home pt reports compliance with medications He is on a regimen of: Norvasc 10 mg po daily and Atenolol 25 mg po daily. Recently saw his Electrical Hardware Engineer Dr Neumann 10/06/2022 Of note Lisinopril caused him dry cough and throat pruritus Most recent electrolytes, Bun and Creatinine done on: 08/2022 showed a mildly elevated Scr 1.24 Plan: Continue current regimen Pt not a good candidate for Thiazide diuretics due to his Hx of Gout patient advised to adhere to a low sodium diet, encouraged about medication compliance, counseled about weight loss. f/u 4 months. with me in person Assessment & Plan (08/06/2022 9:12 AM EDT): Pt here for a f/u BP remains controlled pt reports compliance with medications He is on a regimen of: Norvasc 10 mg po daily and Atenolol 25 mg po daily Lisinopril caused him dry cough and throat pruritus Most recent electrolytes, Bun and Creatinine done on: 07/17/2021 were wnl. Today will repeat Plan: Continue current regimen Pt not a good candidate for Thiazide diuretics due to his Hx of Gout patient advised to adhere to a low sodium diet, encouraged about medication compliance, counseled about weight loss. f/u 4 months. with me in person Resolved Problems Problem Noted Date Diagnosed Date Resolved Date Acute conjunctivitis of both eyes 11/03/2022 07/15/2023 Assessment & Plan (11/03/2022 9:13 AM EDT): Televisit Pt with c/o new onset of mild eye redness and morning crustiness on both eyes for about 5 days or so, no pain, no fever, no other associated symptom. Symptoms suggestive of pink eye Recommended to clean eyes in the morning with a warm compress and apply erythromycin ointment daily x 7 days instructed pt to come in if symptoms do not improve or worsen or present himself to the nearest ER if he develops eye pain, worsening redness , discharge, foreign body sensation, photophobia etc. Pt verbalized understanding Encounters Date Type Department Care Team Description 06/13/2024 1:15 PM EST Office Visit [facility] [address] [place] [phone] Hoang Yusuf MD Primary hypertension (Primary Dx); Esophageal hiatal hernia; Oral phase dysphagia; Tubular adenoma of colon; Mild chronic obstructive pulmonary disease (CMS/HCC); Preventative health care; Dietary counseling; Exercise counseling; Class 2 severe obesity due to excess calories with serious comorbidity and body mass index (BMI) of 35.0 to 35.9 in adult (CMS/HCC); Encounter for immunization 06/13/2024 Travel 06/02/2024 Telephone [facility] [address] [place] [phone] Hoang Yusuf MD Chart Prep 06/01/2024 Patient Outreach [facility] [address] [place], [place] [phone] Hoang Yusuf MD Pre-visit Planning (SDOH Screening negative and Tobacco screening negative) 05/21/2024 Refill [facility] [address] [place] [address] Hoang Yusuf MD Primary hypertension 05/05/2024 Patient Outreach [facility] [address] [place] [address] [phone] Hoang Yusuf MD Pre-visit Planning (Pre-visit planning - LVM ) 05/03/2024 Telephone [facility] [address] [place], [place] [phone] Hoang Yusuf MD Chart Prep 04/27/2024 Refill [facility] [address] [place] [address] Hoang Yusuf MD Chronic obstructive pulmonary disease, unspecified COPD type (CMS/HCC) from Last 3 Months Immunizations Name Administration Dates Next Due Influenza High-dose Quadriva lent Preservative Free 02/23/2022 Influenza Quadrivalent Adjuvanted 02/12/2023,08/2019 Influenza injectable quadriv alent preservative free 02/27/2016 Influenza, High Dose Seasona l, Preservative Free 04/20/2018,02/10/2016,02/05/2015 Influenza, IIV3, injectable 01/29/2013,0 02/05/2012,01/09/2011,02/14 Pneumococcal Conjugate PCV 13 12/17/2014 Pneumococcal Polysaccharide PPSV23 05/29/2008 RSV Adjuvant 05/02/2023 Tdap 06/13/2024,02/02/2014 Zoster, Recombinant 01/18/2024,06/13/2019 Zoster, live 02/05/2012 Social History Tobacco Use Types Packs/Day Years Used Date Smoking Tobacco: Former Cigarettes Passive Smoke Exposure: Past Smokeless Tobacco: Never Tobacco Cessation:Counseling Given: Not Answered Alcohol Answer Date Recorded How often do [...] Orientation Straight 03/16/2022 10 :16 AM EDT Last Filed Vital Signs Vital Sign Reading [...] Mass Index 35.36 06/13/2024 12:59 PM EST Plan of Treatment Upcoming Encounters Date Type Department Care Team (Late st Contact Info) Description 10/03/2024 10:15 AM EDT Office Visit [facility] [address] [place] [address] Hoang Yusuf MD [address] [place], [place] [phone] Health Maintenance Due Date Last Done Comments CT Colonography 1937 FIT DNA/Cologuard 1937 FIT 1937 FOBT 1937 Sigmoidoscopy 1937 COVID-19 Vaccine ( season) 2024 09/30/2021, 06/05/2021, 07/30/2020, Additional history exists Influenza Vaccine (#1) 2024 , 02/23/2022, 02/18/2020, Additional history exists Depression Screening 01/12/2025 01/13/2024, 01/13/20 SDOH Screening 06/01/2025 06/01/2024 Alcohol/Substance Use Screening 06/13/2025 06/13/2024 Tobacco Screening 06/13/2025 06/13/2024 Lipid Panel 03/23/2028 03/23/2023, 08/15, 10/24/2020, Additional history exists Colonoscopy 02/10/2029 02/11/2024 Colorectal Cancer Screening 02/10/2029 DTaP/Tdap/Td Vaccines (3 - Td or Tdap) 06/13/2034 06/13/2024, 02/02/2014 Pneumococcal Vaccine: 50+ Years Completed 12/17/2014, 05/29/2008 RSV Patients and Patients Aged 60 years or older Completed 05/02/2023 Zoster Vaccines Completed 01/18/2024, 05/18, 02/05/2012 HIB Vaccines Aged Out No longer eligi ble based on patient's age to complete this topic HPV Vaccines Aged Out No longer eligi ble based on patient's age to complete this topic Hepatitis A Vaccines Aged Out No long er eligible based on patient's age to complete this topic Hepatitis B Vaccines Aged Out No long er eligible based on patient's age to complete this topic IPV Vaccines Aged Out No longer eligi ble based on patient's age to complete this topic Meningococcal Vaccine Aged Out No laz valente eligible based on patient's age to complete this topic RSV under 20 months Aged Out No longe r eligible based on patient's age to complete this topic Rotavirus Vaccines Aged Out No longer eligible based on patient's age to complete this topic Procedures Procedure Name Priority Date/Time Associated Diagnosis Comments COLONOSCOPY Routine 02/11/2024 11:48 AM EDT LIPID PANEL, STANDARD Routine 03/23/2023 6:43 AM EST Preventative health care from Last 3 Months or Most Recently Relevant to Health Maintenance Results * Colonoscopy (02/11/2024 11:48 AM EDT) Colonoscopy Normal Normal 02/11/2024 11:4 8 AM EDT us Jillian Hale MD HEALTH MAINTENANCE Final Result * (ABNORMAL) Lipid Panel, Standard (03/23/2023 6:43 AM EST) Triglycerides 93 <150 mg/dL [facility] Comment:Desirable Triglyceri de: less than 150 mg/dLBorderline High Triglyceride 150-199 mg/dLHigh Triglyceride: 200-499 mg/dLVery High Triglyceride: greater than or equal to 5OO mg/dL Cholesterol 182 <200 mg/dL [facility] Comment:Desirable Cholestero l: less than 200 mg/dLBorderline High Cholesterol: 200-239 mg/dLHigh Cholesterol: greater than 239 mg/dL LDL Cholesterol Calculated 118(H) <100 mg/dL [facility] Comment:Desirable LDL: less than 100 mg/dLNear Optimal/Above Optimal LDL: 110- 129 mg/dLBorderline High LDL: 130-159 mg/dLHigh LDL: 160-189 mg/dLVery High LDL: greater than or equal to 190 mg/dL HDL Cholesterol 46 >40 mg/dL [facility] Comment:Desirable HDL: great er than 40 mg/dL Note: This HDL assay may give artificially low results in patients with liver disease. Blood Venous blood specimen / Unknown 03/23/2023 6:43 AM EST 03/23/2023 6:43 AM EST us Hoang Rees MD LAB BLOOD ORDERABLES Final Result [facility] [address] [place] [phone] [phone] from Last 3 Months or Most Recently Relevant to Health Maintenance Insurance [facility] [address] [place] [id number] [place] [id number] Care Teams Pressure Vessel Inspector Relationship Specialty Start Date End Date Hoang Yusuf MD [address] [place] [phone] PCP - General Internal Medicine 02/02/14
[2024-07-04 12:32] LABS: Alanine Aminotransferase 19 U/L (0-40); Alkaline Phosphatase 89 U/L (39-117); Anion Gap 11 (12-20); Aspartate Amino Transferase 27 U/L (5-37); Bilirubin Total 1.1 mg/dL (0.0-1.0); Blood Urea Nitrogen 15 mg/dL (9-16); Calcium 9.2 mg/dL (8.4-10.2); Carbon Dioxide 27 mmol/L (22-29); Chloride 108 mmol/L (96-108); Cholesterol 172 mg/dL (<200); Estimated Glomerular Filt Rate > 60; Glucose Random 92 mg/dL (60-115); HDL Cholesterol 44 mg/dL (>40); LDL Cholesterol Calculated 110 mg/dL (<100); Potassium 4.1 mmol/L (3.3-5.1); Sodium 142 mmol/L (135-145); Total Protein 7.1 g/dL (6.5-8.0); Triglycerides 92 mg/dL (<150)
== END 2024-07-04 08:25 | disposition home or self-care (01) ==
LOC: HO.HHCL 08:24
PROVIDERS: Visit Provider Internal Medicine
DX: I10 Essential (primary) hypertension (principal)
CPT/HCPCS: 36415; 80053; 80061

== ENCOUNTER 2024-07-21 10:30 | Outpatient (REF) | payer OTHER, SELFPAY ==
--- OUTSIDE RECORDS SUMMARY | 2024-07-21 11:51 | XMS_ITS | Encounter Summary ---
Author Organization [employer] Address [address] [facility] [address] [place] [address] Care Team Providers Care Hydro Mechanic Name Role Phone Hoang Yusuf MD Primary Care Provide r Encounter Details Date Type Department Care Team (Late st Contact Info) Description 03/04/2023 Orders Only [facility] [address] [place], [place] [phone] Michelle Fonseca LPN Social History Tobacco Use [...] Description 10/03/2024 10:15 AM EDT Office Visit [facility] [address] [place], [place] [phone] Hoang Yusuf MD [address] [place], [place] [phone] documented as of this encounter Visit Diagnoses Not on filedocumented in this encounter Additional Health Concerns Assessment Noted Time PHQ-9 Depression Total Score: 0 08/07/19 23 11:34 AM EDT documented as of this encounter Care Teams Hydro Mechanic Relationship Specialty Start Date End Date Hoang Yusuf MD [address] [place] [id number] PCP - General Internal Medicine 02/02/14 documented as of this encounter
--- OUTSIDE RECORDS SUMMARY | 2024-07-21 11:51 | XMS_ITS | Encounter Summary ---
Author Organization [employer] Address [address] [facility] [address] [facility] [address] [place] [address] Care Team Providers Care Applications Developer Name Role Phone Hoang Yusuf MD Primary Care Provide r Encounter Details Date Type Department Care Team (Late st Contact Info) Description 06/02/2023 Orders Only [facility] [address] [place], [place] [phone] Simran Mak LPN Social History Tobacco Use [...] 10/03/2024 10:15 AM EDT Office Visit [facility] [address] [place] [address] Hoang Yusuf MD [address] [place] [phone] documented as of this encounter Visit Diagnoses Not on filedocumented in this encounter Additional Health Concerns Assessment Noted Time PHQ-9 Depression Total Score: 0 08/07/19 23 11:34 AM EDT documented as of this encounter Care Teams Applications Developer Relationship Specialty Start Date End Date Hoang Yusuf MD [address] [place] [address] PCP - General Internal Medicine 02/02/14 documented as of this encounter
--- OUTSIDE RECORDS SUMMARY | 2024-07-21 11:51 | XMS_ITS | Clinical Summary ---
Author Organization [employer] Address [address] [facility] 7t [place] [address] Care Team Providers Care Drill Press Tender Name Role Phone Hoang Yusuf MD Primary [...] otherwise normal. Pt was last seen by cleaning specialist Dr Iglesias last seen 05/2014. Repeat CBC wnl. [facility] health care 08/06/2022 Assessment & Plan (06/13/2024 9:55 AM EST): PSA: 08/26/2022 Normal colonoscopy with melanosis September 2011 at [facility] with h/o tubular adenoma /Repeat Colonoscopy [place] [facility] 02/03/2018 showed 3 Tubular adenomas 5 yr f/u. Repeat Colonoscopy 12/15/2022 Showed tubular adenoma again /Repeat 02/11/2024 showed 3 tubular adenomas 3-5 yr follow up recommended Assessment & Plan (01/13/2024 9:17 AM EDT): PSA: 08/26/2022 Normal Vaccines: Tdap 02/02/2014 pneumovax May 2008 Prevnar: 12/27/2014 zostavax Jan 2012 at [facility] colonoscopy with melanosis September 2011 at [facility] with h/o tubular adenoma for rescreening 5yrs. Repeat Colonoscopy at [facility] [place] time 02/03/2018 showed 3 Tubular adenomas 5 yr f/u. Repeat Colonoscopy 12/15/2022 Showed tubular adenoma again Assessment & Plan (07/15/2023 3:00 PM EST): PSA: 08/26/2022 Normal Vaccines: Tdap 02/02/2014 pneumovax May 2008 Prevnar: 12/27/2014 zostavax Jan 2012 at [facility] colonoscopy with melanosis September 2011 at [facility] with h/o tubular adenoma for rescreening 5yrs. Repeat Colonoscopy at [facility] [place] time 02/03/2018 showed 3 Tubular adenomas 5 yr f/u. Repeat Colonoscopy 12/15/2022 Showed tubular adenoma again Assessment & Plan (03/16/2023 8:48 AM EDT): PSA: 08/26/2022 Normal Vaccines: flu vaccine: Tdap 02/02/2014 pneumovax May 2008 Prevnar: 12/27/2014 zostavax Jan 2012 at [facility] colonoscopy with melanosis September 2011 at [facility] with h/o tubular adenoma for rescreening 5yrs. Repeat Colonoscopy at [facility] this time 02/03/2018 showed 3 Tubular adenomas 5 yr f/u. Repeat 12/15/2022 Showed tubular adenoma again Assessment & Plan (08/06/2022 9:33 AM EDT): HUBER: At Urologist office. PSA 11/07/2018 was 4.89 Urologist recommended to recheck in 1 year Vaccines: flu vaccine: Tdap 02/02/2014 pneumovax May 2008 Prevnar: 12/27/2014 zostavax Jan 2012 at [facility] colonoscopy with melanosis September 2011 at [facility] with h/o tubular adenoma for rescreening 5yrs. Repeat Colonoscopy at [facility] [place] time 02/03/2018 showed 3 Tubular adenomas [...] of tubular adenoma. Repeat colonoscopy done at [facility] 12/2022 showed a tubular adenoma a 5 year f/u. Repeat 02/11/2024 showed: Colonoscopy Findings: Three small to medium sized polyps were removed (tubular adenomas) Moderate diverticulosis seen in the entire colon Moderate hemorrhoids on retroflexed exam. 3 to 5 year follow up recommended Assessment & Plan (03/16/2023 8:47 AM EDT): He has hx of tubular adenoma. Repeat colonoscopy done at [facility] 12/2022 showed a tubular adenoma a 5 year f/u. Assessment & Plan (08/06/2022 9:30 AM EDT): He has hx of tubular adenoma. Repeat colonoscopy done at [facility] 09/26/2011 did not show a polyp but given his family hx and Hx of tubular adenoma GI specialist recommended a 5 year f/u. Pt had the Colonoscopy at [facility] this time 02/03/2018 showed 3 Tubular adenomas [...] Used to be under the care of [facility]. Last seen 07/29/2023, they recommended to STOP checking PSA PSA 08/27/2022 3.7 Assessment & Plan (08/06/2022 9:12 AM EDT): Used to be under the care of [facility]. On 11/07/2018 PSA on that [...] up He is under the care of talent sourcing specialist dr Sanchez On Breo [employer] and [employer] Assessment & Plan (07/15/2023 2:52 PM EST): Here for a follow up He is under the care of talent sourcing specialist dr Sanchez On Kimberlyn [employer]ipta and [employer] Assessment & Plan (11/03/2022 9:04 AM EDT): Televisit Under the care of talent sourcing specialist dr Sanchez Last seen 07/23/2021 On [...] 25 mg po daily. Recently saw his Bow String Maker Dr Neumann 10/06/2022 Of note Lisinopril caused [...] 25 mg po daily. Recently saw his Bow String Maker Dr Neumann 10/06/2022 Of note Lisinopril caused [...] Description 06/13/2024 1:15 PM EST Office Visit [facility] [address] [place] [phone] Hoang Yusuf MD Primary hypertension (Primary Dx); Esophageal hiatal hernia; Oral phase dysphagia; Tubular adenoma of colon; Mild chronic obstructive pulmonary disease (CMS/HCC); Preventative health care; Dietary counseling; Exercise counseling; Class 2 severe obesity due to excess calories with serious comorbidity and body mass index (BMI) of 35.0 to 35.9 in adult (CMS/HCC); Encounter for immunization 06/13/2024 Travel 06/02/2024 Telephone [facility] [address] [place] [phone] Hoang Yusuf MD Chart Prep 06/01/2024 Patient Outreach [facility] [address] [place], [place] [phone] Hoang Yusuf MD Pre-visit Planning (SDOH Screening negative and Tobacco screening negative) 05/21/2024 Refill [facility] [address] [place] [address] Hoang Yusuf MD Primary hypertension 05/05/2024 Patient Outreach [facility] [address] [place] [address] [phone] Hoang Yusuf MD Pre-visit Planning (Pre-visit planning - LVM ) 05/03/2024 Telephone [facility] [address] [place], [place] [phone] Hoang Yusuf MD Chart Prep 04/27/2024 Refill [facility] [address] [place] [address] Hoang Yusuf MD Chronic obstructive pulmonary disease, [...] Description 10/03/2024 10:15 AM EDT Office Visit [facility] [address] [place] [address] Hoang Yusuf MD [address] [place], [place] [phone] Health Maintenance Due Date Last Done Comments CT Colonography 1937 FIT DNA/Cologuard 1937 FIT 1937 FOBT 1937 Sigmoidoscopy 1937 COVID-19 Vaccine ( season) 2024 09/30/2021, 06/05/2021, 07/30/2020, Additional history exists Influenza Vaccine (#1) 2024 , 02/23/2022, 02/18/2020, Additional history exists Depression Screening 01/12/2025 01/13/2024, 01/13/20 24 SDOH Screening 06/01/2025 06/01/2024 Alcohol/Substance Use Screening 06/13/2025 06/13/2024 Tobacco Screening 06/13/2025 06/13/2024 Colonoscopy 02/10/2029 02/11/2024 Colorectal Cancer Screening 02/10/2029 Lipid Panel 07/04/2029 07/04/2024, 11/0 11/2022, 08/26/2022, Additional history exists DTaP/Tdap/Td Vaccines (3 - Td or Tdap) [...] Procedure Name Priority Date/Time Associated Diagnosis Comments COMPREHENSIVE METABOLIC PANEL Routine 07/04/2024 8:25 AM EST Primary hypertension LIPID PANEL, STANDARD Routine 07/04/2024 8:25 AM EST Primary hypertension HM COLONOSCOPY Routine 02/11/2024 11:48 AM EDT from Last 3 Months or Most Recently Relevant to Health Maintenance Results * (ABNORMAL) Lipid Panel, Standard (07/04/2024 8:25 AM EST) Triglycerides 92 <150 mg/dL [facility] Comment:Desirable Triglyceri de: less than 150 mg/dLBorderline High Triglyceride 150-199 mg/dLHigh Triglyceride: 200-499 mg/dLVery High Triglyceride: greater than or equal to 5OO mg/dL Cholesterol 172 <200 mg/dL [facility] Comment:Desirable Cholestero l: less than 200 mg/dLBorderline High Cholesterol: 200-239 mg/dLHigh Cholesterol: greater than 239 mg/dL LDL Cholesterol Calculated 110(H) <100 mg/dL [facility] Comment:Desirable LDL: less than 100 mg/dLNear Optimal/Above Optimal LDL: 110- 129 mg/dLBorderline High LDL: 130-159 mg/dLHigh LDL: 160-189 mg/dLVery High LDL: greater than or equal to 190 mg/dL HDL Cholesterol 44 >40 mg/dL [facility] Comment:Desirable HDL: great er than 40 mg/dL Note: This HDL assay may give artificially low results in patients with liver disease. Blood Venous blood specimen / Unknown 07/04/2024 8:25 AM EST 07/04/2024 11:01 AM EST us Hoang Rees MD LAB BLOOD ORDERABLES Final Result [facility] [address] [place] [phone] * (ABNORMAL) Comprehensive Metabolic Panel (07/04/2024 8:25 AM EST) Sodium 142 135 - 145 mmol/L [facility] Potassium 4.1 3.3 - 5.1 mmol/L [facility] Chloride 108 96 - 108 mmol/L [facility] Carbon Dioxide 27 22 - 29 mmol/L [facility] Anion Gap 11(L) 12 - 20 [facility] Urea Nitrogen (BUN) 15 9 - 16 mg/dL [facility] Creatinine, Serum 1.03 0.5 - 1.4 mg/dL [facility] Estimated Glomerular Filt Rate >60 [facility] Comment:Chronic Kidney Disea se: Estimated GFR < 60 mL/min/[id number] Kidney Disease: Estimated GFR < 15 mL/min/1.73m2 Glucose 92 60 - 115 mg/dL [facility] Calcium 9.2 8.4 - 10.2 mg/dL [facility] Bilirubin, Total 1.1(H) 0.0 - 1.0 mg/dL [facility] Aspartate Amino Transferase 27 5 - 37 U/L [facility] Alanine Aminotransferase 19 0 - 40 U/L [facility] Total Protein 7.1 6.5 - 8.0 g/dL [facility] Albumin Level 4.0 3.5 - 5.0 g/dL [facility] Alkaline Phosphatase 89 39 - 117 U/L [facility] Blood Venous blood specimen / Unknown 07/04/2024 8:25 AM EST 07/04/2024 11:01 AM EST Hoang Rees MD LAB BLOOD ORDERABLES Final Result [facility] [address] [place] [phone] * Hm Colonoscopy (02/11/2024 11:48 AM EDT) Colonoscopy Normal Normal 02/11/2024 11:4 8 AM EDT us Jillian Hale MD HEALTH MAINTENANCE Final Result from Last 3 Months or Most Recently Relevant to Health Maintenance Insurance [facility] [address] [place] [phone] Care Teams Drill Press Tender Relationship Specialty Start Date End Date Hoang Yusuf MD [address] [place] [phone] PCP - General Internal Medicine 02/02/14
--- OUTSIDE RECORDS SUMMARY | 2024-07-21 11:51 | XMS_ITS | Encounter Summary ---
Author Organization [employer] Address [address] [place] [address] Care Team Providers Care Impact Hammer Operator Name Role Phone Hoang Yusuf MD Primary Care Provide r Encounter Details Date Type Department Care Team (Late st Contact Info) Description 03/18/2023 Orders Only [facility] [address] [place], [place] [phone] Simran Mak LPN Social History Tobacco Use [...] Description 10/03/2024 10:15 AM EDT Office Visit [facility] [address] [place] [address] Hoang Yusuf MD [address] [place] [address] documented as of this encounter Visit Diagnoses Not on filedocumented in this encounter Additional Health Concerns Assessment Noted Time PHQ-9 Depression Total Score: 0 08/07/19 23 11:34 AM EDT documented as of this encounter Care Teams Impact Hammer Operator Relationship Specialty Start Date End Date Hoang Yusuf MD [address] [place] [address] PCP - General Internal Medicine 02/02/14 documented as of this encounter
[2024-07-21 12:17] LABS: Anion Gap 11 (12-20); Blood Urea Nitrogen 15 mg/dL (9-16); Carbon Dioxide 26 mmol/L (22-29); Chloride 107 mmol/L (96-108); Estimated Glomerular Filt Rate > 60; Glucose Random 102 mg/dL (60-115); Potassium 3.9 mmol/L (3.3-5.1); Sodium 140 mmol/L (135-145)
== END 2024-07-21 10:31 | disposition home or self-care (01) ==
LOC: HO.HHCL 10:30
PROVIDERS: Visit Provider Physician Assistant
DX: N40.1 Benign prostatic hyperplasia with lower urinary tract symptoms (principal)
CPT/HCPCS: 36415; 80048

== ENCOUNTER 2024-08-14 12:00 | Outpatient (AMB) | payer MEDICARE, SELFPAY ==
--- NOTE | 2024-08-14 12:04 | A.OFFVIS_ITS ---
Intake Visit Reasons: Inj-B/L knee injection-last 06/27/21 Intake Note: Daquan is an 88 year old male who presents today for a repeat injection in bilateral knees. He has Bilateral Knee OA, last injections were administered bilaterally on 06/27/21. Workers Compensation Defense Attorney Required: Yes Workers Compensation Defense Attorney Name: Irene Barillas LM Allergies No Known Allergies Allergy (Verified 08/14/24 12:24) Medication List - Last Reconciled 08/14/24 by Karlie Alvarez RN albuterol sulfate 90 mcg/actuation 2 puffs inhalation Q6H PRN amlodipine 10 mg PO DAILY aspirin (Adult Low Dose Aspirin) 81 mg PO DAILY atenolol 25 mg PO DAILY bismuth subcit [id number] 140-125-125 mg (Pylera) 3 caps PO QID 14 days cetirizine 10 mg PO DAILY PRN colchicine 0.6 mg PO DAILY fluticasone furoate-vilanterol 100-25 mcg/dose (Breo Ellipta) 1 ea inhalation QAM omeprazole 20 mg PO QAM polyethylene glycol 3350 (Miralax) 17 grams PO DAILY PRN 30 days HPI HPI Inj-B/L knee injection-last 06/27/21: Details: Bilateral knee OA with pain with activity. Injections have been helpful. [facility] Medical History Enlarged prostate Anemia Gout Asthma Hypertension Surgical History History of esophagogastroduodenoscopy (EGD) Hx of colonoscopy Hx of LASIK Family History Brother Colon cancer Social History Are you a primary caretaker to a significant other at home: No Do you presently have visiting nurse or other home services: No Patient Tobacco Use Status: Former Tobacco user Physical Exam Extrem Other: 5-125 degrees of motion bilaterally. Varus alignment bilaterally. Tenderness to palpation medial compartment bilaterally. Stable to varus and valgus stress bilaterally. No effusion bilaterally. Office Procedures Joint Inj/Aspir; Non-Pain Clin Joint Injection/Drain Details: Injected 1 mL of Decadron and 3 mL 1% lidocaine and 3 mL of 0.25% Marcaine. Site was prepped using aseptic technique. Patient tolerated the procedure well. Shoulders, Hips, Knees, Knee Large Joint Injection [id number]: Bilateral Knee Coding Procedure code (CPT) selection complete Assessment & Plan Assessment & Plan (1) Primary osteoarthritis of left knee: Code(s): M17.12 - Unilateral primary osteoarthritis, left knee Category: Medical Plan: Injected bilateral knees. WIll f/u 4 months (2) Primary osteoarthritis of right knee: Code(s): M17.11 - Unilateral primary osteoarthritis, right knee Category: Medical Plan: Coding Level of Care Code Est Pt Level 3 (48531) Diagnoses Primary osteoarthritis of left knee M17.12 Primary osteoarthritis of right knee M17.11 CPT Codes Shoulders, Hips, Knees, - Knee Large Joint Injection : Bilateral Knee ([id number])
--- OUTSIDE RECORDS SUMMARY | 2024-08-14 13:44 | XMS_ITS | Encounter Summary ---
Author Organization [employer] Address [address] 7[address] [place] [address] Care Team Providers Care Hydroelectric Systems Technician Name Role Phone Hoang Yusuf MD Primary Care Provide r Encounter Details Date Type Department Care Team (Late st Contact Info) Description 06/02/2023 Orders Only [facility]S [address] [place], [place] [phone] Simran Mak LPN Social History Tobacco Use Types Packs/Day Years Used Date Smoking Tobacco: Former Cigarettes Passive Smoke Exposure: Past Smokeless Tobacco: Never Depression Answer Date Recorded Patient Health Questionnaire-9 Score 0 08/06/2022 Housing Stability Answer Date Recorded What is your housing situation today? I have mono gzt 03/16/[address] you li [...] Description 10/03/2024 10:15 AM EDT Office Visit [facility] [address] [place] [address] Hoang Yusuf MD [address] [place] [address] documented as of this encounter Visit Diagnoses Not on filedocumented in this encounter Additional Health Concerns Assessment Noted Time PHQ-9 Depression Total Score: 0 08/07/19 23 11:34 AM EDT documented as of this encounter Care Teams Hydroelectric Systems Technician Relationship Specialty Start Date End Date Hoang Yusuf MD [address] [place] [address] PCP - General Internal Medicine 02/02/14 documented as of this encounter
--- OUTSIDE RECORDS SUMMARY | 2024-08-14 13:44 | XMS_ITS | Encounter Summary ---
Author Organization [employer] Address [address] 7[address] [place] [address] Care Team Providers Care Farm Tractor Operator Name Role Phone Hoang Yusuf MD Primary Care Provide r Encounter Details Date Type Department Care Team (Late st Contact Info) Description 03/18/2023 Orders Only [facility] & PEDS [address] [place], [place] [phone] Simran Mak LPN Social History Tobacco Use [...] Description 10/03/2024 10:15 AM EDT Office Visit [facility] [address] [place] [address] Hoang Yusuf MD [address] [place] [address] documented as of this encounter Visit Diagnoses Not on filedocumented in this encounter Additional Health Concerns Assessment Noted Time PHQ-9 Depression Total Score: 0 08/07/19 23 11:34 AM EDT documented as of this encounter Care Teams Farm Tractor Operator Relationship Specialty Start Date End Date Hoang Yusuf MD [address] [place] [address] PCP - General Internal Medicine 02/02/14 documented as of this encounter
--- OUTSIDE RECORDS SUMMARY | 2024-08-14 13:44 | XMS_ITS | Encounter Summary ---
Author Organization [employer] Address [address] [facility] [address]t [place] [address] Care Team Providers Care Senior Architectural Designer Name Role Phone Hoang Yusuf MD Primary Care Provide r Encounter Details Date Type Department Care Team (Late st Contact Info) Description 03/04/2023 Orders Only [facility]S [address] [place], [place] [phone] Michelle Fonseca LPN Social History Tobacco Use [...] AM EDT Office Visit [facility] [address] [place], [place] [phone] Hoang Yusuf MD [address] [place], [place] [phone] documented as of this encounter Visit Diagnoses Not on filedocumented in this encounter Additional Health Concerns Assessment Noted Time PHQ-9 Depression Total Score: 0 08/07/19 23 11:34 AM EDT documented as of this encounter Care Teams Senior Architectural Designer Relationship Specialty Start Date End Date Hoang Yusuf MD [address] [place] [phone] PCP - General Internal Medicine 02/02/14 documented as of this encounter
--- OUTSIDE RECORDS SUMMARY | 2024-08-14 13:44 | XMS_ITS | Encounter Summary ---
Author Organization [employer] Address [address] [place] [address] Care Team Providers Care Mash Tub Cooker Operator Name Role Phone Hoang Yusuf MD Primary Care Provide r Reason for Visit * Reason Comments Med Refill Encounter Details Date Type Department Care Team ([facility] st Contact Info) Description 08/11/2024 Refill [facility] [address] [place] [address] Hoang Yusuf MD [address] [place] [address] Chronic gout of multiple sites, unspecified cause Social History Tobacco Use Types Packs/Day Years [...] Description 10/03/2024 10:15 AM EDT Office Visit [facility] [address] [place] [phone] Hoang Yusuf MD [address] [place] [address] documented as of this encounter Visit Diagnoses Diagnosis Chronic gout of multiple sites, unspecified cause documented in this encounter Additional Health Concerns Assessment Noted Time PHQ-9 Depression Total Score: 0 01/13/20 24 9:08 AM EDT documented as of this encounter Care Teams Mash Tub Cooker Operator Relationship Specialty Start Date End Date Hoang Yusuf MD [address] [place] [phone] PCP - General Internal Medicine 02/02/14 documented as of this encounter
--- OUTSIDE RECORDS SUMMARY | 2024-08-14 13:44 | XMS_ITS | Encounter Summary ---
Author Organization [employer] Address [address] [facility] 7t [place] [address] Care Team Providers Care Rewinder Operator Name Role Phone Hoang Yusuf MD Primary Care Provide r Reason for Visit * Reason Comments Med Refill Encounter Details Date Type Department Care Team ([facility] st Contact Info) Description 08/03/2024 Refill [facility] [address] [place], [place] [phone] Hoang Yusuf MD [address] [place], [place] [phone] Chronic obstructive pulmonary disease, unspecified COPD type (CMS/HCC) Social History Tobacco Use Types Packs/Day Years [...] 10/03/2024 10:15 AM EDT Office Visit [facility] [address] [place] [address] Hoang Yusuf MD [address] [place] [address] documented as of this encounter Visit Diagnoses Diagnosis Chronic obstructive pulmonary disease, unspecified COPD type (CMS/HCC) documented in this encounter Additional Health Concerns Assessment Noted Time PHQ-9 Depression Total Score: 0 01/13/20 24 9:08 AM EDT documented as of this encounter Care Teams Rewinder Operator Relationship Specialty Start Date End Date Hoang Yusuf MD [address] [place] [address] PCP - General Internal Medicine 02/02/14 documented as of this encounter
--- OUTSIDE RECORDS SUMMARY | 2024-08-14 13:44 | XMS_ITS | Clinical Summary ---
Author Organization [employer] Address [address] [facility] [address] [place] [address] Care Team Providers Care Toll Line Mechanic Name Role Phone Hoang Yusuf MD Primary Care Provide r Allergies Active Allergy Reactions Criticality Noted Date Comments Lisinopril Cough 02/09/2017 Medications cetirizine (ZyrTEC) 10 MG tabletIndicatio ns:Seasonal allergies Take 1 tablet (10 mg) by mouth in the morning. 30 tablet 2 023 Active albuterol (2.5 MG/3ML) 0.083% nebulizer solution INHALE 1 VIAL VIA NEBULIZATION EVERY 4-6 HOURS NEEDED FOR COUGH, WHEEZING OR SHORTNESS OF BREATH 180 mL 1 023 Active aspirin (Aspirin Low Dose) 81 MG EC tabletIndicatio ns:Preventative health care Take 1 tablet (81 mg) by mouth in the morning. 90 tablet 11 024 Active atenolol (Tenormin) 25 MG tablet TAKE 1 TABLET BY MOUTH EVERY DAY 90 tablet 1 025 Active amLODIPine (Norvasc) 10 MG tabletIndicatio ns:Primary hypertension TAKE 1 TABLET(10 MG) BY MOUTH IN THE MORNING 90 tablet 1 025 Active Fluticasone Furoate-Vilante rol (Breo Ellipta) 100-25 MCG/ACT aerosol powderIndicatio ns:Chronic obstructive pulmonary disease, unspecified COPD type (CMS/HCC) Take 1 Inhalation by mouth Once per day. INHALE 1 PUFF BY MOUTH IN THE MORNING 60 each 2 025 Active colchicine 0.6 MG tabletIndicatio ns:Chronic gout of multiple sites, unspecified cause TAKE 1 TABLET BY MOUTH INITIALLY, THEN 1 TABLET BY MOUTH IN 1 HOUR NEEDED FOR PAIN 30 tablet 1 025 Active colchicine 0.6 MG tabletIndicatio ns:Chronic gout of multiple sites, unspecified cause TAKE 1 TABLET BY MOUTH INITIALLY, THEN TAKE 1 TABLET BY MOUTH IN 1 HOUR NEEDED FOR PAIN 30 tablet 5 024 2024 Discontinued Breo Ellipta 100-25 MCG/ACT aerosol powderIndicatio ns:Chronic obstructive pulmonary disease, unspecified COPD type (CMS/HCC) INHALE 1 PUFF BY MOUTH IN THE MORNING 60 each 2 024 2024 Discontinued(R eorder (will not trigger notification to Pharmacy)) Active Problems Problem Noted Date Diagnosed Date [...] otherwise normal. Pt was last seen by credit card specialist Dr Iglesias last seen 05/2014. Repeat CBC wnl. [facility] health care 08/06/2022 Assessment & Plan (06/13/2024 9:55 AM EST): PSA: 08/26/2022 [place] [facility] /Repeat Colonoscopy [place] [facility] 02/03/2018 showed 3 Tubular adenomas 5 yr f/u. Repeat Colonoscopy 12/15/2022 Showed tubular adenoma again /Repeat 02/11/2024 showed 3 tubular adenomas 3-5 yr follow up recommended Assessment & Plan (01/13/2024 9:17 AM EDT): PSA: 08/26/2022 Normal Vaccines: Tdap 02/02/2014 pneumovax May 2008 Prevnar: 12/27/2014 zostavax Jan 2012 at [facility] colonoscopy with [place]osis [place] [facility] [place] h/o tubular adenoma for rescreening 5yrs. Repeat Colonoscopy at [facility] [place] time 02/03/2018 showed 3 Tubular adenomas 5 yr f/u. Repeat Colonoscopy 12/15/2022 Showed tubular adenoma again Assessment & Plan (07/15/2023 3:00 PM EST): PSA: 08/26/2022 Normal Vaccines: Tdap 02/02/2014 pneumovax May 2008 Prevnar: 12/27/2014 zostavax Jan 2012 at [facility] colonoscopy with melanosis September 2011 [place] [facility] h/o tubular adenoma for rescreening 5yrs. Repeat Colonoscopy at [facility] this time 02/03/2018 showed 3 Tubular adenomas 5 yr f/u. Repeat Colonoscopy 12/15/2022 Showed tubular adenoma again Assessment & Plan (03/16/2023 8:48 AM EDT): PSA: 08/26/2022 Normal Vaccines: flu vaccine: Tdap 02/02/2014 pneumovax May 2008 Prevnar: 12/27/2014 zostavax Jan 2012 at [facility] colonoscopy with melanosis September 2011 [place] [facility] [place] h/o tubular adenoma for rescreening 5yrs. Repeat Colonoscopy at [facility] this time 02/03/2018 showed 3 Tubular adenomas 5 yr f/u. Repeat 12/15/2022 Showed tubular adenoma again Assessment & Plan (08/06/2022 9:33 AM EDT): HUBER: At Urologist office. PSA 11/07/2018 was 4.89 Urologist recommended to recheck in 1 year Vaccines: flu vaccine: Tdap 02/02/2014 pneumovax May 2008 Prevnar: 12/27/2014 zostavax Jan 2012 at [facility] colonoscopy with melanosis September [place] [facility] h/o tubular adenoma for rescreening 5yrs. Repeat Colonoscopy at [facility] [place] time 02/03/2018 showed 3 Tubular adenomas [...] of tubular adenoma. Repeat colonoscopy done at [facility] 12/2022 showed a tubular adenoma a 5 year f/u. Repeat 02/11/2024 showed: Colonoscopy Findings: Three small to medium sized polyps were removed (tubular adenomas) Moderate diverticulosis seen in the entire colon Moderate hemorrhoids on retroflexed exam. 3 to 5 year follow up recommended Assessment & Plan (03/16/2023 8:47 AM EDT): He has hx of tubular adenoma. Repeat colonoscopy done at [facility] 12/2022 showed a tubular adenoma a 5 year f/u. Assessment & Plan (08/06/2022 9:30 AM EDT): He has hx of tubular adenoma. Repeat colonoscopy done [place] [facility] 09/26/2011 did not show a polyp but given his family hx and Hx of tubular adenoma GI specialist recommended a 5 year f/u. Pt had the Colonoscopy at [facility] this time 02/03/2018 showed 3 Tubular adenomas [...] Used to be under the care of [facility]. Last seen 07/29/2023, they recommended to STOP checking PSA PSA 08/27/2022 3.7 Assessment & Plan (08/06/2022 9:12 AM EDT): Used to be under the care of [facility]. On 11/07/2018 PSA on that visit [...] up He is under the care of correspondence specialist dr Sanchez On Breo Ellipta and Pro-Air Assessment & Plan (07/15/2023 2:52 PM EST): Here for a follow up He is under the care of correspondence specialist dr Sanchez On Kimberlyn Ellipta and Pro-Air Assessment & Plan (11/03/2022 9:04 AM EDT): Televisit Under the care of correspondence specialist dr Sanchez Last seen 07/23/2021 On [...] 25 mg po daily. Recently saw his Top Edge Beveler Dr Neumann 10/06/2022 Of note Lisinopril caused [...] 25 mg po daily. Recently saw his Top Edge Beveler Dr Neumann 10/06/2022 Of note Lisinopril caused [...] Encounters Date Type Department Care Team Description 08/11/2024 Refill [facility] [address] [place], [place] [phone] Hoang Yusuf MD Chronic gout of multiple sites, unspecified cause 08/03/2024 Refill [facility] [address] [place], [place] [phone] Hoang Yusuf MD Chronic obstructive pulmonary disease, unspecified COPD type ([facility]) 08/03/2024 Refill [facility] [address] [place], [place] [phone] Hoang Yusuf MD Chronic obstructive pulmonary disease, unspecified COPD type ([facility]) 07/28/2024 Telephone [facility] [address] [facility] [place] [address] Hoang Yusuf MD Error (VOID this visit) 06/13/2024 1:15 PM EST Office Visit [facility] [place] [address] Hoang Yusuf MD Primary hypertension (Primary Dx); Esophageal hiatal hernia; Oral phase dysphagia; Tubular adenoma of colon; Mild chronic obstructive pulmonary disease ([facility]); Preventative health care; Dietary counseling; Exercise counseling; Class 2 severe obesity due to excess calories with serious comorbidity and body mass index (BMI) of 35.0 to 35.9 in adult ([facility]); Encounter for immunization 06/13/2024 Travel 06/02/2024 Telephone [facility] [address] [place] [address] Hoang Yusuf MD Chart Prep 06/01/2024 Patient Outreach [facility] [place] [address] Hoang Yusuf MD Pre-visit Planning (SDOH Screening negative and Tobacco screening negative) 05/21/2024 Refill [facility] [place] [address] Hoang Yusuf MD Primary hypertension from Last 3 Months Immunizations Name Administration [...] Description 10/03/2024 10:15 AM EDT Office Visit [facility] [address], [place] [phone] Hoang Yusuf MD [address] [place], [place] [phone] Health Maintenance Due Date Last Done Comments [...] 8:25 AM EST) Triglycerides 92 <150 mg/dL [facility] Comment:Desirable Triglyceri de: less than 150 mg/dLBorderline High Triglyceride 150-199 mg/dLHigh Triglyceride: 200-499 mg/dLVery High Triglyceride: greater than or equal to 5OO mg/dL Cholesterol 172 <200 mg/dL [facility] Comment:Desirable Cholestero l: less than 200 mg/dLBorderline High Cholesterol: 200-239 mg/dLHigh Cholesterol: greater than 239 mg/dL LDL Cholesterol Calculated 110(H) <100 mg/dL [facility] Comment:Desirable LDL: less than 100 mg/dLNear Optimal/Above Optimal LDL: 110- 129 mg/dLBorderline High LDL: 130-159 mg/dLHigh LDL: 160-189 mg/dLVery High LDL: greater than or equal to 190 mg/dL HDL Cholesterol 44 >40 mg/dL [facility] Comment:Desirable HDL: great er than 40 mg/dL Note: This HDL assay may give artificially low results in patients with liver disease. Blood Venous blood specimen / Unknown 07/04/2024 8:25 AM EST 07/04/2024 11:01 AM EST us Hoang Rees MD LAB BLOOD ORDERABLES Final Result [facility] [address] [place] [address] [phone] * (ABNORMAL) Comprehensive Metabolic Panel (07/04/2024 8:25 AM EST) Sodium 142 135 - 145 mmol/L [facility] Potassium 4.1 3.3 - 5.1 mmol/L [facility] Chloride 108 96 - 108 mmol/L [facility] Carbon Dioxide 27 22 - 29 mmol/L [facility] Anion Gap 11(L) 12 - 20 [facility] Urea Nitrogen (BUN) 15 9 - 16 mg/dL [facility] Creatinine, Serum 1.03 0.5 - 1.4 mg/dL [facility] Estimated Glomerular Filt Rate >60 [facility] Comment:Chronic Kidney Disea se: Estimated GFR < 60 mL/min/[id number] Kidney Disease: Estimated GFR < 15 mL/min/1.73m2 Glucose 92 60 - 115 mg/dL [facility] Calcium 9.2 8.4 - 10.2 mg/dL [facility] Bilirubin, Total 1.1(H) 0.0 - 1.0 mg/dL [facility] Aspartate Amino Transferase 27 5 - 37 U/L [facility] Alanine Aminotransferase 19 0 - 40 U/L [facility] Total Protein 7.1 6.5 - 8.0 g/dL [facility] Albumin Level 4.0 3.5 - 5.0 g/dL [facility] Alkaline Phosphatase 89 39 - 117 U/L [facility] Blood Venous blood specimen / Unknown 07/04/2024 8:25 AM EST 07/04/2024 11:01 AM EST us Hoang Rees MD LAB BLOOD ORDERABLES Final Result [facility] [address] [place] [phone] [phone] * Hm Colonoscopy (02/11/2024 11:48 AM EDT) Colonoscopy Normal Normal 02/11/2024 11:4 8 AM EDT Jillian Hale MD HEALTH MAINTENANCE Final Result from Last 3 Months or Most Recently Relevant to Health Maintenance Insurance [facility] Care Teams Toll Line Mechanic Relationship Specialty Start Date End Date Hoang Yusuf MD [address] [place] [address] [phone] PCP - General Internal Medicine 02/02/14
== END 2024-08-14 12:54 | disposition home or self-care (01) ==
LOC: HO.HOS 12:00
PROVIDERS: PCP Internal Medicine; Visit Provider Orthopaedic Surgery
DX: M17.0 Bilateral primary osteoarthritis of knee (principal)
CPT/HCPCS: 20610; 99213

== ENCOUNTER → 2024-08-14 12:00 | Outpatient (BNVA) | payer OTHER, SELFPAY | PROVIDERS: PCP Internal Medicine; Visit Provider Orthopaedic Surgery | DX: M17.0 Bilateral primary osteoarthritis of knee (principal) | CPT/HCPCS: 20610; 99212; J0665; J1100; J2003 ==

== ENCOUNTER 2024-08-31 07:20 | Outpatient (REF) | payer OTHER, SELFPAY ==
--- OUTSIDE RECORDS SUMMARY | 2024-08-31 08:30 | XMS_ITS | Encounter Summary ---
Author Organization [employer] Address [address] [facility] [address] [place] [address] Care Team Providers Care Twist Packer Name Role Phone Hoang Yusuf MD Primary Care Provide r Reason for Visit * Reason Comments Med Refill Encounter Details Date Type Department Care Team ([facility] st Contact Info) Description 08/03/[address] [facility]INE [address] [place], [place] [phone] Hoang Yusuf MD [address] [place], [place] [phone] Chronic obstructive pulmonary disease, unspecified COPD type [...] AM EDT Office Visit [facility] [address] [place] [address] Hoang Yusuf MD [address] [place] [address] documented as of this encounter Visit Diagnoses Diagnosis Chronic obstructive pulmonary disease, unspecified COPD type (CMS/HCC) documented in this encounter Additional Health Concerns Assessment Noted Time PHQ-9 Depression Total Score: 0 01/13/20 24 9:08 AM EDT documented as of this encounter Care Teams Twist Packer Relationship Specialty Start Date End Date Hoang Yusuf MD [address] [place] [address] PCP - General Internal Medicine 02/02/14 documented as of this encounter
--- OUTSIDE RECORDS SUMMARY | 2024-08-31 08:30 | XMS_ITS | Clinical Summary ---
Author Organization [employer] Address [address] [facility] [address] [place] [address] Care Team Providers Care Coding Spec Name Role Phone Hoang Yusuf MD Primary [...] Iglesias last seen 05/2014. Repeat CBC wnl. [facility] health care 08/06/2022 Assessment & Plan (06/13/2024 9:55 AM EST): PSA: 08/26/2022 Normal [place] with [place] [facility] [place]o [place] /Repeat Colonoscopy at [facility] 02/03/2018 showed 3 Tubular adenomas 5 yr f/u. Repeat Colonoscopy 12/15/2022 Showed tubular adenoma again /Repeat 02/11/2024 showed 3 tubular adenomas 3-5 yr follow up recommended Assessment & Plan (01/13/2024 9:17 AM EDT): PSA: 08/26/2022 Normal Vaccines: Tdap 02/02/2014 pneumovax May 2008 Prevnar: 12/27/2014 zostavax Jan 2012 at [facility] colonoscopy with melanosis September 2011 [place] [facility] h/o tubular adenoma for rescreening 5yrs. Repeat Colonoscopy at [facility] this time 02/03/2018 showed 3 Tubular adenomas 5 yr f/u. Repeat Colonoscopy 12/15/2022 Showed tubular adenoma again Assessment & Plan (07/15/2023 3:00 PM EST): PSA: 08/26/2022 Normal Vaccines: Tdap 02/02/2014 pneumovax May 2008 Prevnar: 12/27/2014 zostavax Jan 2012 at [facility] colonoscopy with melanosis September 2011 [place] [facility] h/o tubular adenoma for rescreening 5yrs. Repeat Colonoscopy at [facility] this time 02/03/2018 showed 3 Tubular adenomas 5 yr f/u. Repeat Colonoscopy 12/15/2022 Showed tubular adenoma again Assessment & Plan (03/16/2023 8:48 AM EDT): PSA: 08/26/2022 Normal Vaccines: flu vaccine: Tdap 02/02/2014 pneumovax May 2008 Prevnar: 12/27/2014 zostavax Jan 2012 at [facility] colonoscopy with melanosis September 2011 [place] [facility] h/o tubular adenoma for rescreening 5yrs. Repeat Colonoscopy at [facility] this time 02/03/2018 showed 3 Tubular adenomas 5 yr f/u. Repeat 12/15/2022 Showed tubular adenoma again Assessment & Plan (08/06/2022 9:33 AM EDT): HUBER: At Urologist office. PSA 11/07/2018 was 4.89 Urologist recommended to recheck in 1 year Vaccines: flu vaccine: Tdap 02/02/2014 pneumovax May 2008 Prevnar: 12/27/2014 zostavax Jan 2012 at [facility] colonoscopy with melanosis September 2011 [place] [facility] h/o tubular adenoma for rescreening 5yrs. Repeat Colonoscopy at [facility] this time 02/03/2018 showed 3 Tubular adenomas [...] tubular adenoma. Repeat colonoscopy done at [facility] 12/2022 showed a tubular adenoma a 5 year f/u. Repeat 02/11/2024 showed: Colonoscopy Findings: Three small to medium sized polyps were removed (tubular adenomas) Moderate diverticulosis seen in the entire colon Moderate hemorrhoids on retroflexed exam. 3 to 5 year follow up recommended Assessment & Plan (03/16/2023 8:47 AM EDT): He has hx of tubular adenoma. Repeat colonoscopy done at [facility] 12/2022 showed a tubular adenoma a 5 year f/u. Assessment & Plan (08/06/2022 9:30 AM EDT): He has hx of tubular adenoma. Repeat colonoscopy done at [facility] [place] 09/26/2011 did not show a polyp but given his family hx and Hx of tubular adenoma GI specialist recommended a 5 year f/u. Pt had the Colonoscopy at [facility] this time 02/03/2018 showed 3 Tubular adenomas [...] Used to be under the care of [facility]. Last seen 07/29/2023, they recommended to STOP checking PSA PSA 08/27/2022 3.7 Assessment & Plan (08/06/2022 9:12 AM EDT): Used to be under the care of [facility]. On 11/07/2018 PSA on that [...] up He is under the care of lead generation specialist dr Sanchez On Breo Ellipta and Pro-Air Assessment & Plan (07/15/2023 2:52 PM EST): Here for a follow up He is under the care of lead generation specialist dr Sanchez On Kimberlyn Ellipta and Pro-Air Assessment & Plan (11/03/2022 9:04 AM EDT): Televisit Under the care of lead generation specialist dr Sanchez Last seen 07/23/2021 On [...] 25 mg po daily. Recently saw his K [address] Neumann 10/06/2022 Of note Lisinopril caused [...] 25 mg po daily. Recently saw his K [address] Neumann 10/06/2022 Of note Lisinopril caused [...] Type Department Care Team Description 08/11/2024 Refill [facility] [address] [place], [place] [phone] Hoang Yusuf MD Chronic gout of multiple sites, unspecified cause 08/03/2024 Refill [facility] [address] [place], [place] [phone] Hoang Yusuf MD Chronic obstructive pulmonary disease, unspecified COPD type ([facility]) 08/03/2024 Refill [facility] [address] [place], [place] [phone] Hoang Yusuf MD Chronic obstructive pulmonary disease, unspecified COPD type ([facility]) 07/28/2024 Telephone [facility] [address] [place], [place] [phone] Hoang Yusuf MD Error (VOID this visit) 06/13/2024 1:15 PM EST Office Visit [facility] [address] [place] [address] Hoang Yusuf MD Primary hypertension (Primary Dx); Esophageal hiatal hernia; Oral phase dysphagia; Tubular adenoma of colon; Mild chronic obstructive pulmonary disease ([facility]); Preventative health care; Dietary counseling; Exercise counseling; Class 2 severe obesity due to excess calories with serious comorbidity and body mass index (BMI) of 35.0 to 35.9 in adult ([facility]); Encounter for immunization 06/13/2024 Travel 06/02/2024 Telephone [facility] [address] [place] [address] Hoang Yusuf MD Chart Prep from Last [...] Upcoming Encounters Date Type Department Care Team ([facility] st Contact Info) Description 10/03/2024 10:15 AM EDT Office Visit [facility] [address] [place] [address] Hoang Yusuf MD [address] [place] [address] Health Maintenance Due Date Last Done Comments [...] 8:25 AM EST) Triglycerides 92 <150 mg/dL [facility] Comment:Desirable Triglyceri de: less than 150 mg/dLBorderline High Triglyceride 150-199 mg/dLHigh Triglyceride: 200-499 mg/dLVery High Triglyceride: greater than or equal to 5OO mg/dL Cholesterol 172 <200 mg/dL [facility] Comment:Desirable Cholestero l: less than 200 mg/dLBorderline High Cholesterol: 200-239 mg/dLHigh Cholesterol: greater than 239 mg/dL LDL Cholesterol Calculated 110(H) <100 mg/dL [facility] Comment:Desirable LDL: less than 100 mg/dLNear Optimal/Above Optimal LDL: 110- 129 mg/dLBorderline High LDL: 130-159 mg/dLHigh LDL: 160-189 mg/dLVery High LDL: greater than or equal to 190 mg/dL HDL Cholesterol 44 >40 mg/dL [facility] Comment:Desirable HDL: great er than 40 mg/dL Note: This HDL assay may give artificially low results in patients with liver disease. Blood Venous blood specimen / Unknown 07/04/2024 8:25 AM EST 07/04/2024 11:01 AM EST Hoang Rees MD LAB BLOOD ORDERABLES Final Result [facility] [address] [place] [address] [phone] * (ABNORMAL) Comprehensive Metabolic Panel (07/04/2024 8:25 AM EST) Sodium 142 135 - 145 mmol/L [facility] Potassium 4.1 3.3 - 5.1 mmol/L [facility] Chloride 108 96 - 108 mmol/L [facility] Carbon Dioxide 27 22 - 29 mmol/L [facility] Anion Gap 11(L) 12 - 20 [facility] Urea Nitrogen (BUN) 15 9 - 16 mg/dL [facility] Creatinine, Serum 1.03 0.5 - 1.4 mg/dL [facility] Estimated Glomerular Filt Rate >60 [facility] Comment:Chronic Kidney Disea se: Estimated GFR < 60 mL/min/[id number] Kidney Disease: Estimated GFR < 15 mL/min/1.73m2 Glucose 92 60 - 115 mg/dL [facility] Calcium 9.2 8.4 - 10.2 mg/dL [facility] Bilirubin, Total 1.1(H) 0.0 - 1.0 mg/dL [facility] Aspartate Amino Transferase 27 5 - 37 U/L [facility] Alanine Aminotransferase 19 0 - 40 U/L [facility] Total Protein 7.1 6.5 - 8.0 g/dL [facility] Albumin Level 4.0 3.5 - 5.0 g/dL [facility] Alkaline Phosphatase 89 39 - 117 U/L [facility] Blood Venous blood specimen / Unknown 07/04/2024 8:25 AM EST 07/04/2024 11:01 AM EST Hoang Rees MD LAB BLOOD ORDERABLES Final Result [facility] [address] [place] [address] [phone] * Colonoscopy (02/11/2024 11:48 AM EDT) Colonoscopy Normal Normal 02/11/2024 11:4 8 AM EDT Jillian Hale MD HEALTH MAINTENANCE Final Result from Last 3 Months or Most Recently Relevant to Health Maintenance Insurance [facility] [address] [place] [id number] [place] [id number] Care Teams Coding Spec Relationship Specialty Start Date End Date Hoang Yusuf MD [address] [place] [id number] PCP - General Internal Medicine 02/02/14
--- OUTSIDE RECORDS SUMMARY | 2024-08-31 08:30 | XMS_ITS | Encounter Summary ---
Author Organization [employer] Address [address] [facility] [address] [place] [address] Care Team Providers Care Grey Tender Name Role Phone Hoang Yusuf MD Primary Care Provide r Encounter Details Date Type Department Care Team (Late st Contact Info) Description 03/18/2023 Orders Only [facility] CHC MED & PEDS [address] [place], [place] [phone] Simran Mak LPN Social History Tobacco Use [...] EDT Office Visit [facility] MEDICINE [address] [place] [address] Hoang Yusuf MD [address] [place] [address] documented as of this encounter Visit Diagnoses Not on filedocumented in this encounter Additional Health Concerns Assessment Noted Time PHQ-9 Depression Total Score: 0 08/07/19 23 11:34 AM EDT documented as of this encounter Care Teams Grey Tender Relationship Specialty Start Date End Date Hoang Yusuf MD [address] [place] [address] PCP - General Internal Medicine 02/02/14 documented as of this encounter
--- OUTSIDE RECORDS SUMMARY | 2024-08-31 08:31 | XMS_ITS | Encounter Summary ---
Author Organization [employer] Address [address] [facility] [address] [place] [address] Care Team Providers Care Burlap Bag Sewer Name Role Phone Hoang Yusuf MD Primary Care Provide r Encounter Details Date Type Department Care Team (Late st Contact Info) Description 06/02/2023 Orders Only [facility] CHC MED & PEDS [address] [place], [place] [phone] Simran Mak LPN Social History Tobacco Use [...] Description 10/03/2024 10:15 AM EDT Office Visit [facility] MEDICINE [address] [place] [address] Hoang Yusuf MD [address] [place] [address] documented as of this encounter Visit Diagnoses Not on filedocumented in this encounter Additional Health Concerns Assessment Noted Time PHQ-9 Depression Total Score: 0 08/07/19 23 11:34 AM EDT documented as of this encounter Care Teams Burlap Bag Sewer Relationship Specialty Start Date End Date Hoang Yusuf MD [address] [place] [address] PCP - General Internal Medicine 02/02/14 documented as of this encounter
--- OUTSIDE RECORDS SUMMARY | 2024-08-31 08:31 | XMS_ITS | Encounter Summary ---
Author Organization [employer] Address [address] [facility] 7t [place] [address] Care Team Providers Care Certified Flight Instructor Name Role Phone Hoang Yusuf MD Primary Care Provide r Encounter Details Date Type Department Care Team (Late st Contact Info) Description 03/04/2023 Orders Only [facility] CHC MED & PEDS [address] [place], [place] [phone] Michelle Fonseca LPN Social History Tobacco Use [...] Description 10/03/2024 10:15 AM EDT Office Visit [facility] MEDICINE [address] [place], [place] [phone] Hoang Yusuf MD [address] [place], [place] [phone] documented as of this encounter Visit Diagnoses Not on filedocumented in this encounter Additional Health Concerns Assessment Noted Time PHQ-9 Depression Total Score: 0 08/07/19 23 11:34 AM EDT documented as of this encounter Care Teams Certified Flight Instructor Relationship Specialty Start Date End Date Hoang Yusuf MD [address] [place] [address] PCP - General Internal Medicine 02/02/14 documented as of this encounter
[2024-08-31 08:39] LABS: MANUAL DIFF FLAG NO
[2024-08-31 10:17] LABS: Basophils Percent Auto 0.5 % (0-2); Eosinophils Absolute Auto 0.1 X10*3/uL (0.0-0.4); Hematocrit 40.5 % (42.0-52.0); Hemoglobin 12.9 g/dl (14.0-18.0); Imm Gran Abs Auto 0.02 X10*3/uL (0.00-0.03); Imm Gran Pct Auto 0.4 % (0.0-0.4); Lymphocytes Absolute Auto 1.6 X10*3/uL (1.2-4.9); Lymphocytes Percent Auto 28.9 % (20-40); Mean Corpuscular HGB Conc 31.9 g/dl (31.0-36.0); Mean Corpuscular Hemoglobin 27.6 pg (27.0-33.0); Mean Corpuscular Volume 86.5 fL (80.0-98.0); Monocytes Absolute Auto 0.7 X10*3/uL (0.1-1.2); Monocytes Percent Auto 12.5 % (2-11); Neutrophils Absolute Auto 3.1 x10*3/uL (2.0-8.3); Neutrophils Percent Auto 55.7 % (45-73); Platelet Count 199 X10*3/uL (160-400); Red Blood Count 4.68 X10*6/uL (4.60-5.80); Red Cell Distribution Width 15.9 % (11.0-16.0); White Blood Count 5.5 X10*3/uL (4.8-10.8)
[2024-08-31 11:17] LABS: Ferritin 12 ng/mL (20-250); Vitamin D 25-OH Total 18.1 ng/mL (>30)
[2024-08-31 11:22] LABS: Folate 7.9 ng/mL (> or = 4.0); Vitamin B12 422 pg/mL (200-900)
== END 2024-08-31 07:21 | disposition home or self-care (01) ==
LOC: HO.LAB 07:20
PROVIDERS: PCP Internal Medicine; Visit Provider Internal Medicine Gastroenterology
DX: R68.2 Dry mouth, unspecified (principal); Z86.0100 Personal history of colon polyps, unspecified; Z80.0 Family history of malignant neoplasm of digestive organs; K29.70 Gastritis, unspecified, without bleeding; B96.81 Helicobacter pylori [H. pylori] as the cause of diseases classified elsewhere; K29.81 Duodenitis with bleeding; R13.14 Dysphagia, pharyngoesophageal phase; D64.9 Anemia, unspecified
CPT/HCPCS: 36415; 82306; 82607; 82728; 82746; 85025; 99212

== ENCOUNTER 2024-08-31 07:20 | Outpatient (AMB) | payer MEDICARE, SELFPAY ==
--- OUTSIDE RECORDS SUMMARY | 2024-08-31 07:23 | XMS_ITS | Clinical Summary ---
Author Organization [employer] Address [address] [facility] [address] [place] [address] Care Team Providers Care Biosolids Management Technician Name Role Phone Hoang Yusuf MD [...] otherwise normal. Pt was last seen by resource protection specialist Dr Iglesias last seen 05/2014. Repeat CBC wnl. [facility] health care 08/06/2022 Assessment & Plan (06/13/2024 9:55 AM EST): PSA: 08/26/2022 Normal colonoscopy with melanosis September 2011 at [facility] [place] with h/o tubular adenoma /Repeat Colonoscopy at [facility] 02/03/2018 showed 3 Tubular adenomas 5 yr f/u. Repeat Colonoscopy 12/15/2022 Showed tubular adenoma again /Repeat 02/11/2024 showed 3 tubular adenomas 3-5 yr follow up recommended Assessment & Plan (01/13/2024 9:17 AM EDT): PSA: 08/26/2022 Normal Vaccines: Tdap 02/02/2014 pneumovax May 2008 Prevnar: 12/27/2014 zostavax Jan 2012 at [facility] colonoscopy with melanosis September 2011 at [facility] [place] with h/o tubular adenoma for rescreening 5yrs. Repeat Colonoscopy at [facility] this time 02/03/2018 showed 3 Tubular adenomas 5 yr f/u. Repeat Colonoscopy 12/15/2022 Showed tubular adenoma again Assessment & Plan (07/15/2023 3:00 PM EST): PSA: 08/26/2022 Normal Vaccines: Tdap 02/02/2014 pneumovax May 2008 Prevnar: 12/27/2014 zostavax Jan 2012 at [facility] colonoscopy with melanosis September 2011 at [facility] [place] with h/o tubular adenoma for rescreening 5yrs. Repeat Colonoscopy at [facility] this time 02/03/2018 showed 3 Tubular adenomas 5 yr f/u. Repeat Colonoscopy 12/15/2022 Showed tubular adenoma again Assessment & Plan (03/16/2023 8:48 AM EDT): PSA: 08/26/2022 Normal Vaccines: flu vaccine: Tdap 02/02/2014 pneumovax May 2008 Prevnar: 12/27/2014 zostavax Jan 2012 at [facility] colonoscopy with melanosis September 2011 at [facility] [place] with h/o tubular adenoma for rescreening 5yrs. Repeat Colonoscopy at [facility] this time 02/03/2018 showed 3 Tubular adenomas 5 yr f/u. Repeat 12/15/2022 Showed tubular adenoma again Assessment & Plan (08/06/2022 9:33 AM EDT): HUBER: At Urologist office. PSA 11/07/2018 was 4.89 Urologist recommended to recheck in 1 year Vaccines: flu vaccine: Tdap 02/02/2014 pneumovax May 2008 Prevnar: 12/27/2014 zostavax Jan 2012 at [facility] colonoscopy with melanosis September 2011 at [facility] [place] with h/o tubular adenoma for rescreening 5yrs. Repeat Colonoscopy at [facility] this time 02/03/2018 showed 3 Tubular adenomas [...] of tubular adenoma. Repeat colonoscopy done at [facility] 12/2022 showed a tubular adenoma a 5 year f/u. Repeat 02/11/2024 showed: Colonoscopy Findings: Three small to medium sized polyps were removed (tubular adenomas) Moderate diverticulosis seen in the entire colon Moderate hemorrhoids on retroflexed exam. 3 to 5 year follow up recommended Assessment & Plan (03/16/2023 8:47 AM EDT): He has hx of tubular adenoma. Repeat colonoscopy done at [facility] 12/2022 showed a tubular adenoma a 5 year f/u. Assessment & Plan (08/06/2022 9:30 AM EDT): He has hx of tubular adenoma. Repeat colonoscopy done at [facility] 09/26/2011 did not show a polyp but given his family hx and Hx of tubular adenoma GI specialist recommended a 5 year f/u. Pt had the Colonoscopy at [facility] this time 02/03/2018 showed 3 Tubular adenomas [...] Used to be under the care of [facility]. Last seen 07/29/2023, they recommended to STOP checking PSA PSA 08/27/2022 3.7 Assessment & Plan (08/06/2022 9:12 AM EDT): Used to be under the care of [facility]. On 11/07/2018 PSA on that visit [...] up He is under the care of air defense specialist dr Sanchez On Breo Ellipta and Pro-Air Assessment & Plan (07/15/2023 2:52 PM EST): Here for a follow up He is under the care of air defense specialist dr Sanchez On Kimberlyn Ellipta and Pro-Air Assessment & Plan (11/03/2022 9:04 AM EDT): Televisit Under the care of air defense specialist dr Sanchez Last seen 07/23/2021 On [...] 25 mg po daily. Recently saw his Muffle Operator Dr Neumann 10/06/2022 Of note Lisinopril caused [...] 25 mg po daily. Recently saw his Muffle Operator Dr Neumann 10/06/2022 Of note Lisinopril caused [...] Type Department Care Team Description 08/11/2024 Refill [facility] [address], [place] [phone] Hoang Yusuf MD Chronic gout of multiple sites, unspecified cause 08/03/2024 Refill [facility] [address] [place], [place] [phone] Hoang Yusuf MD Chronic obstructive pulmonary disease, unspecified COPD type ([facility]) 08/03/2024 Refill [facility] [address], [place] [phone] Hoang Yusuf MD Chronic obstructive pulmonary disease, unspecified COPD type ([facility]) 07/28/2024 Telephone [facility] [address], [place] [phone] Hoang Yusuf MD Error (VOID this visit) 06/13/2024 1:15 PM EST Office Visit [facility] [address] [place] [address] Hoang Yusuf MD Primary hypertension (Primary Dx); Esophageal hiatal hernia; Oral phase dysphagia; Tubular adenoma of colon; Mild chronic obstructive pulmonary disease ([facility]); Preventative health care; Dietary counseling; Exercise counseling; Class 2 severe obesity due to excess calories with serious comorbidity and body mass index (BMI) of 35.0 to 35.9 in adult ([facility]); Encounter for immunization 06/13/2024 Travel 06/02/2024 Telephone [facility] [address] [place] [address] Hoang Yusuf MD Chart Prep from Last 3 Months Immunizations Name Administration [...] Upcoming Encounters Date Type Department Care Team ([facility] st Contact Info) Description 10/03/2024 10:15 AM EDT Office Visit [facility] [address] [place] [address] Hoang Yusuf MD [address] [place] [address] Health Maintenance Due Date Last Done Comments [...] 8:25 AM EST) Triglycerides 92 <150 mg/dL [facility] Comment:Desirable Triglyceri de: less than 150 mg/dLBorderline High Triglyceride 150-199 mg/dLHigh Triglyceride: 200-499 mg/dLVery High Triglyceride: greater than or equal to 5OO mg/dL Cholesterol 172 <200 mg/dL [facility] Comment:Desirable Cholestero l: less than 200 mg/dLBorderline High Cholesterol: 200-239 mg/dLHigh Cholesterol: greater than 239 mg/dL LDL Cholesterol Calculated 110(H) <100 mg/dL [facility] Comment:Desirable LDL: less than 100 mg/dLNear Optimal/Above Optimal LDL: 110- 129 mg/dLBorderline High LDL: 130-159 mg/dLHigh LDL: 160-189 mg/dLVery High LDL: greater than or equal to 190 mg/dL HDL Cholesterol 44 >40 mg/dL [facility] Comment:Desirable HDL: great er than 40 mg/dL Note: This HDL assay may give artificially low results in patients with liver disease. Blood Venous blood specimen / Unknown 07/04/2024 8:25 AM EST 07/04/2024 11:01 AM EST Hoang Rees MD LAB BLOOD ORDERABLES Final Result [facility] [address] [place] [address] [phone] * (ABNORMAL) Comprehensive Metabolic Panel (07/04/2024 8:25 AM EST) Sodium 142 135 - 145 mmol/L [facility] Potassium 4.1 3.3 - 5.1 mmol/L [facility] Chloride 108 96 - 108 mmol/L [facility] Carbon Dioxide 27 22 - 29 mmol/L [facility] Anion Gap 11(L) 12 - 20 [facility] Urea Nitrogen (BUN) 15 9 - 16 mg/dL [facility] Creatinine, Serum 1.03 0.5 - 1.4 mg/dL [facility] Estimated Glomerular Filt Rate >60 [facility] Comment:Chronic Kidney Disea se: Estimated GFR < 60 mL/min/[id number] Kidney Disease: Estimated GFR < 15 mL/min/1.73m2 Glucose 92 60 - 115 mg/dL [facility] Calcium 9.2 8.4 - 10.2 mg/dL [facility] Bilirubin, Total 1.1(H) 0.0 - 1.0 mg/dL [facility] Aspartate Amino Transferase 27 5 - 37 U/L [facility] Alanine Aminotransferase 19 0 - 40 U/L [facility] Total Protein 7.1 6.5 - 8.0 g/dL [facility] Albumin Level 4.0 3.5 - 5.0 g/dL [facility] Alkaline Phosphatase 89 39 - 117 U/L [facility] Blood Venous blood specimen / Unknown 07/04/2024 8:25 AM EST 07/04/2024 11:01 AM EST Hoang Rees MD LAB BLOOD ORDERABLES Final Result [facility] [address] [place] [phone] [phone] * Colonoscopy (02/11/2024 11:48 AM EDT) Colonoscopy Normal Normal 02/11/2024 11:4 8 AM EDT Jillian Hale MD HEALTH MAINTENANCE Final Result from Last 3 Months or Most Recently Relevant to Health Maintenance Insurance [facility] [address] [place] [phone] [place] [id number] Care Teams Biosolids Management Technician Relationship Specialty Start Date End Date Hoang Yusuf MD [address] [place] [phone] PCP - General Internal Medicine 02/02/14
--- NOTE | 2024-08-31 07:24 | A.OFFVIS_ITS ---
Vital Signs 08/31/24 07:26 Height 5 ft 4 in Weight 204 lb BMI 35.0 BP 132/60 Blood Pressure Location Lt brachial Position Sitting Pulse 68 Pulse Oximetry (%) 96 Oxygen Delivery Method Room Air Intake Visit Reasons: dysphagia Intake Note: patient 6 month follow up for Dysphagia, pharyngoesophageal phase Patient cc: dry throat with pain at night time. Denes any other GI issues for today visit. Tube Machine Operator Helper Required: Yes Tube Machine Operator Helper Name: Kesha [id number] Allergies No Known Allergies Allergy (Verified 08/31/24 07:24) Medication List - Last Reconciled 08/31/24 by Jillian Dumont MD albuterol sulfate 90 mcg/actuation 2 puffs inhalation Q6H PRN amlodipine 10 mg PO DAILY aspirin (Adult Low Dose Aspirin) 81 mg PO DAILY atenolol 25 mg PO DAILY cetirizine 10 mg PO DAILY PRN colchicine 0.6 mg PO DAILY fluticasone furoate-vilanterol 100-25 mcg/dose (Breo Ellipta) 1 ea inhalation QAM omeprazole 20 mg PO QAM polyethylene glycol 3350 (Miralax) 17 grams PO DAILY PRN 30 days HPI HPI dysphagia: Details: GI clinic visit for this 88 year male for FU of colon polyps. TODAY'S VISIT: Telephone Yarn Mercerizer Operator Helper, Cleve # [id number] patient 6 month follow up for Dysphagia, pharyngoesophageal phase Patient cc: dry throat with pain at night time. When I lay down my mouth gets too dry and I am not able to sleep Drinks two bottles of water during the day. Denies dysphagia or heartburn, constipation or diarrhea. PAST VISITS: EGD and colon results were reviewed with the patient. Notes improvement in swallowing after dilation. Had a single episode of dysphagia a week ago while eating food Food ultimately passed and he did not have to regurgitate Denies recurrent episodes since then Patient denies any GI issues, patient is not taking Omeprazole because never received any other refills, he does not if he have to continue to take it or not EGD and colon results reviewed with the patient. Has intermittent heartburn depending on his diet and on no medications (was taking Ranitidine twice a day in the past).Patient denies symptoms of heartburn, dysphagia, nausea, vomiting, change in appetite or weight. Denies recent change in bowel habits, constipation, diarrhea, black stools. Intermittent BRBPR. Patient denies major cardiac or pulmonary problems. Pt has a hx of loud snoring and not tested for sleep apnea Denies problems with anesthesia in the past. Denies being on chronic anticoagulation. Brother from Colon Cancer ? at age 39 yrs. Complains of back pain. Social History Tobacco Use:? Tob acco Use/Smoking? Are you a: former smoker , How long has it been since you last smoked?: > 10 years.? Mi scellaneous:? Occ upation: retired. Dominant hand: left. Activity Level: very active. Marital status: . IMAGING STUDIES: 10/26/23 Barium swallow ENDOSCOPIC STUDIES: 12/15/22 EGD AND COLON SHOWED: Endoscopy Findings: STOMACH: Mild gastric erythema with a few chronic appearing erosions. DUODENUM: A medium sized diverticulum in the medial wall of descending duodenum Colonoscopy Findings: Two medium sized and one large polyps removed Moderate diverticulosis seen in the sigmoid colon Moderate hemorrhoids on retroflexed exam. Plan: Repeat Colonoscopy interval based on path results - in 3 years if polyps are adenomatous and 5 years if polyps are hyperplastic (adult colonoscope for future colonoscopies). 01/2018 COLONOSCOPY SHOWED:Ascending Colon ? A 15 mm sessile polyp removed with hot snareTransverse Colon - A 10 mm sessile polyp removed with cold snare. Some bleeding noted at polypectomy site controlled with cautery using the snare tip Descending Colon ? Normal Sigmoid Colon ? A 10 mm sessile polyp removed with hot snare Rectum ? Normal Anorectum - Moderate non inflammed internal hemorrhoids Colon preparation: Fair despite copious flushing and suctioning and poor in some areas of the colon Impression and Post Procedure Diagnosis: Colonoscopy Findings: Three polyps removed Moderate hemorrhoids on retroflexed exam. Fair prep and poor in some areas Plan: Await pathology results Patient has an appointment on 02/22/2018 in the GI Clinic with Jillian Dumont M.D. Repeat Colonoscopy in 1 year due to fair prep. Biopsies of polyps showed tubular adenoma PAST GI HISTORY BY REVIEW OF MEDICAL RECORDS: ?Patient had colooscopy on 03/17/2011 at [facility] [place] for screening which showed: ?Diffuse melanosis coli throughout the colon. ?Two 8 - 10 mm sessile polyps were removed from the ascending colon. ?No diverticulii or hemorrhoids noted. ?Good prep. ?FU colonoscopy was advised in 6 months which was performed on 09/29/2011 and no polyps were seen. ?5 yr FU recommended [facility] Medical History (Updated 08/31/24 @ 08:13 by Jillian Dumont MD) Enlarged prostate Anemia Gout Asthma Hypertension Surgical History History of esophagogastroduodenoscopy (EGD) Hx of colonoscopy Hx of LASIK Family History Brother Colon cancer Social History Are you a primary childcare administrator to a significant other at home: No Do you presently have visiting nurse or other home services: No Patient Tobacco Use Status: Former Tobacco user Review of Systems Const All systems reviewed & are unremarkable except as noted in HPI and below Physical Exam Vital Signs: Last Vital Signs Pulse 68 08/31/24 07:26 BP 132/60 08/31/24 07:26 Pulse Ox 96 08/31/24 07:26 Oxygen Delivery Method Room Air 08/31/24 07:26 BMI result Body Mass Index 35.0 Const General: healthy appearing and no acute distress Nutritional Appearance: obese Orientation/consciousness: patient oriented x3 Limitations: language barrier HEENT Head: Yes normal to inspection Ears: hearing grossly normal bilaterally Eyes Sclerae: sclerae normal Pupils: Equal, round and reactive pupils present Neck Neck: Yes normal visual inspection Chest Chest palpation & inspection: normal inspection of the chest Resp Effort & Inspection: normal respiratory effort Auscultation: clear to auscultation bilaterally Cardio Palpation: normal PMI Rate: regular rate Rhythm: regular rhythm Heart sounds: S1 normal heart sound present, S2 normal heart sound present and no murmurs GI Palpation (GI): Soft to palpation, nontender and No hepatosplenomegaly present Auscultation: normal bowel sounds Rectal Exam - Male: Yes deferred Skin General skin exam: no rashes or lesions noted Neuro General: patient oriented x3, gait normal and moves all extremities Cranial nerves: Yes Equal, round and reactive pupils present Psych Appearance: grossly normal Mental Status: mental status grossly normal Assessment & Plan Assessment & Plan (1) History of colon polyps: Comment: 2017 Pt had a colonoscopy and three medium sized polyps were removed. Repeat colon advised in 1 year due to suboptimal prep and not scheduled due to the pandemic 01/2024 Three small to medium sized polyps were removed during colonoscopy Pt was informed that EGD and colonoscopic surveillance can be discontinued given advanced age Code(s): Z86.010 - Personal history of colon polyps Category: Medical (2) Family history of colon cancer: Comment: Brother - at age 49 yrs Code(s): Z80.0 - Family history of malignant neoplasm of digestive organs Category: Medical (3) Helicobacter pylori gastritis: Code(s): K29.70 - Gastritis, unspecified, without bleeding; B96.81 - Helicobacter pylori [H. pylori] as the cause of diseases classified elsewhere Category: Medical (4) Multiple duodenal ulcers: Code(s): K29.81 - Duodenitis with bleeding Category: Medical (5) Dysphagia, pharyngoesophageal phase: Code(s): R13.14 - Dysphagia, pharyngoesophageal phase Category: Medical (6) Dry mouth: Code(s): R68.2 - Dry mouth, unspecified Category: Medical (7) Anemia: Code(s): D64.9 - Anemia, unspecified Category: Medical Plan 88 YM with gout, asthma and hypertension here to schedule a colonoscopy due to history of colon polyps and family history of colon cancer. 2018 Pt had a colonoscopy and three medium sized polyps were removed. Repeat colon advised in 1 year due to suboptimal prep and not scheduled due to the pandemic Patient also complains of intermittent heartburn related to diet. 12/15/22 An upper endoscopy (GERD) and a colonoscopy (FU of colon polyps) were performed and findings as noted above. Gastric bx was positive for H Pylori. Pt was prescribed Pylera and Omeprazole 08/26/23 Had a single episode of dysphagia a week ago while eating food Food ultimately passed and he did not have to regurgitate Denies recurrent episodes since then. H Pylori breath test. Resume Omeprazole once a day after the breath test Pt advised to schedule a Barium swallow if he continues to have dysphagia 02/11/24 EGD and colon were performed and showed: Endoscopy Findings: ESOPHAGUS: Small hiatal hernia, mildly tortuous esophagus without stricture or ring. Empiric esophageal balloon dilation of proximal and distal esophagus with a 16.5 mm (49.5 F) CRE balloon STOMACH: Diffuse gastritis DUODENUM: A medium sized diverticulum in the medial wall of descending duodenum Impression and Post Procedure Diagnosis: Colonoscopy Findings: Three small to medium sized polyps were removed Moderate diverticulosis seen in the entire colon Moderate hemorrhoids on retroflexed exam. Plan: Repeat Colonoscopy in 3-5 years if polyps are adenomatous if pt remains in stable health. BIOPSIES SHOWED: A. Gastric antrum, biopsy: Gastric antral mucosa with minimal chronic active gastritis and focal intestinal metaplasia; negative for dysplasia. B. Gastric body, biopsy: Gastric body mucosa with minimal chronic inactive gastritis; negative for intestinal metaplasia and dysplasia. C. Colon, transverse, polyps: Tubular adenomas, three; negative for high-grade dysplasia and carcinoma Letter sent advising repeat EGD (FU of gastric intestinal metaplasia) colonoscopy in 3 years. Pt placed on the recall list for EGD and Colon. Pt was informed that EGD and colonoscopic surveillance can be discontinued given advanced age 408/31/24 Pt complains of dry mouth and denies dysphagia. Advised a trial of sucralfate slurry at bedtime. If symptoms persist advised to contact PCP's office to be scheduled for a sleep study to rule out sleep apnea (Pt stated he does not want to wear a mask (CPAP) at night CBC to FU on anemia FU in 3 months Orders: Orders Vitamin B12 and Folate Today R68.2 - Dry mouth, unspecified Complete Blood Count Auto Diff Today R68.2 - Dry mouth, unspecified Vitamin D 25-OH Total Today R68.2 - Dry mouth, unspecified Ferritin Today R68.2 - Dry mouth, unspecified Medications: New sucralfate Crush and dissolve the tablet in 15 ml of water and take at bedtime daily 1 g PO BID 30 days 60 tabs 3RF Coding Level of Care Code Est Pt Level 4 (31001) Diagnoses History of colon polyps Z86.010 Family history of colon cancer Z80.0 Helicobacter pylori gastritis K29.70; B96.81 Multiple duodenal ulcers K29.81 Dysphagia, pharyngoesophageal phase R13.14 Dry mouth R68.2 Anemia D64.9 Time Spent (min) 21
--- OUTSIDE RECORDS SUMMARY | 2024-08-31 07:24 | XMS_ITS | Encounter Summary ---
Author Organization [employer] Address [address] [place] [address] Care Team Providers Care Wet Cleaner Machine Name Role Phone Hoang Yusuf MD Primary Care Provide r Encounter Details Date Type Department Care Team (Late st Contact Info) Description 03/18/2023 Orders Only [facility] [address] [place], [place] [phone] Simran Mak LPN Social History Tobacco Use [...] Description 10/03/2024 10:15 AM EDT Office Visit [facility] [address] [place] [address] Hoang Yusuf MD [address] [place] [address] documented as of this encounter Visit Diagnoses Not on filedocumented in this encounter Additional Health Concerns Assessment Noted Time PHQ-9 Depression Total Score: 0 08/07/19 23 11:34 AM EDT documented as of this encounter Care Teams Wet Cleaner Machine Relationship Specialty Start Date End Date Hoang Yusuf MD [address] [place] [address] PCP - General Internal Medicine 02/02/14 documented as of this encounter
--- OUTSIDE RECORDS SUMMARY | 2024-08-31 07:24 | XMS_ITS | Encounter Summary ---
Author Organization [id number] Address [address] [facility] [address]t [place] [address] Care Team Providers Care Jinriksha Driver Name Role Phone Hoang Yusuf MD Primary Care Provide r Reason for Visit * Reason Comments Med Refill Encounter Details Date Type Department Care Team ([facility] st Contact Info) Description 08/03/2024 Refill [facility] [address] [place], [place] [phone] Hoang Yusuf MD [address] [place], [place] [phone] Chronic obstructive pulmonary disease, unspecified COPD type [...] Description 10/03/2024 10:15 AM EDT Office Visit [facility] [address] [place] [address] Hoang Yusuf MD [address] [place] [address] documented as of this encounter Visit Diagnoses Diagnosis Chronic obstructive pulmonary disease, unspecified COPD type (CMS/HCC) documented in this encounter Additional Health Concerns Assessment Noted Time PHQ-9 Depression Total Score: 0 01/13/20 24 9:08 AM EDT documented as of this encounter Care Teams Jinriksha Driver Relationship Specialty Start Date End Date Hoang Yusuf MD [address] [place] [address] PCP - General Internal Medicine 02/02/14 documented as of this encounter
--- OUTSIDE RECORDS SUMMARY | 2024-08-31 07:24 | XMS_ITS | Encounter Summary ---
Author Organization [employer] Address [address] [facility] [address] [place] [address] Care Team Providers Care Slab Inspector Name Role Phone Hoang Yusuf MD Primary Care Provide r Encounter Details Date Type Department Care Team (Late st Contact Info) Description 03/04/2023 Orders Only [facility] MED & PEDS [address] [place], [place] [phone] Michelle Fonseca LPN Social History Tobacco Use [...] Description 10/03/2024 10:15 AM EDT Office Visit [facility] [address] [place], [place] [phone] Hoang Yusuf MD [address] [place], [place] [phone] documented as of this encounter Visit Diagnoses Not on filedocumented in this encounter Additional Health Concerns Assessment Noted Time PHQ-9 Depression Total Score: 0 08/07/19 23 11:34 AM EDT documented as of this encounter Care Teams Slab Inspector Relationship Specialty Start Date End Date Hoang Yusuf MD [address] [place] [id number] PCP - General Internal Medicine 02/02/14 documented as of this encounter
--- OUTSIDE RECORDS SUMMARY | 2024-08-31 07:24 | XMS_ITS | Encounter Summary ---
Author Organization [employer] Address [address] [facility] [address] [place] [address] Care Team Providers Care Avionics Technician Name Role Phone Hoang Yusuf MD Primary Care Provide r Encounter Details Date Type Department Care Team (Late st Contact Info) Description 06/02/2023 Orders Only [facility] CH[facility] MED & PEDS [address] [place], [place] [phone] Simran Mak LPN Social History Tobacco Use [...] Description 10/03/2024 10:15 AM EDT Office Visit [facility] [address] [place] [address] Hoang Yusuf MD [address] [place] [address] documented as of this encounter Visit Diagnoses Not on filedocumented in this encounter Additional Health Concerns Assessment Noted Time PHQ-9 Depression Total Score: 0 08/07/19 23 11:34 AM EDT documented as of this encounter Care Teams Avionics Technician Relationship Specialty Start Date End Date Hoang Yusuf MD [address] [place] [address] PCP - General Internal Medicine 02/02/14 documented as of this encounter
[2024-08-31 07:26] VITALS: BP 132/60; PULSE 68; O2SAT 96; BMI 35.0
== END 2024-08-31 08:10 | disposition home or self-care (01) ==
LOC: HO.HGI 07:21
PROVIDERS: PCP Internal Medicine; Visit Provider Internal Medicine Gastroenterology
DX: Z86.0100 Personal history of colon polyps, unspecified (principal); Z80.0 Family history of malignant neoplasm of digestive organs; K29.70 Gastritis, unspecified, without bleeding; B96.81 Helicobacter pylori [H. pylori] as the cause of diseases classified elsewhere; K29.81 Duodenitis with bleeding; R13.14 Dysphagia, pharyngoesophageal phase; R68.2 Dry mouth, unspecified; D64.9 Anemia, unspecified
CPT/HCPCS: 99214

== ENCOUNTER 2024-12-18 06:37 | Inpatient (IN) | payer OTHER, SELFPAY ==
--- NOTE | 2024-12-18 | ECG_ITS ---
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 Rate : 77 BPM Atrial Rate : * BPM P-R Int : * ms QRS Dur : 78 ms QT Int : 402 ms P-R-T Axes : * 21 69 degrees QTcB Int : 454 ms Atrial fibrillation Nonspecific ST and T wave abnormality Abnormal ECG When compared with ECG of 14-Jul-2013 10:14, Atrial fibrillation has replaced Sinus rhythm Referred By: Ricki Guillory Electronically Signed By: FANNY FLOREZ
--- NOTE | ~2024-12-18 | CT_ITS ---
EXAMINATION: CT ABDOMEN PELVIS WITHOUT IV CONTRAST HISTORY: left flank pain COMPARISON: There are no prior studies available for comparison. TECHNIQUE: CT scan of the abdomen and pelvis was performed without contrast using standard departmental protocol. Coronal and sagittal reformatted images were generated and reviewed. Oral contrast material was not administered per department protocol. This CT exam was performed with one or more of the following dose reduction techniques: automated exposure control, adjustment of the mA and/or kV according to patient size, use of iterative reconstruction technique. DLP: 634 mGy-cm FINDINGS: LOWER CHEST: There is minimal dependent atelectasis at both lung bases. There is no pleural effusion. CARDIOVASCULATURE: The heart is normal in size. There is no pericardial effusion. LIVER: The liver is normal in size and contour. The liver has an unremarkable unenhanced appearance. GALLBLADDER / BILE DUCTS: The gallbladder is unremarkable. There is no intra or extrahepatic biliary ductal dilatation. SPLEEN: The spleen is normal in size. There is an ill-defined 2.6 cm hypodensity in the spleen. This is slightly wedge-shaped in appearance and could represent an infarct. There is slight infiltration of the perisplenic fat in this region. PANCREAS: The pancreas has an unremarkable unenhanced appearance. ADRENAL GLANDS: Unremarkable. KIDNEYS/RETROPERITONEUM: No renal or ureteral calculi are identified. There is no hydronephrosis or hydroureter. LYMPH NODES: No retroperitoneal lymphadenopathy is identified in the abdomen or pelvis. VASCULATURE: The abdominal aorta is normal in caliber. MESENTERY/PERITONEUM: No free fluid. No masses. There is no free intraperitoneal gas. STOMACH: The stomach is collapsed, limiting evaluation. SMALL BOWEL: The small bowel is normal in caliber. COLON: The colon is unremarkable. APPENDIX: Normal. URINARY BLADDER/PELVIC ORGANS: The urinary bladder is collapsed, limiting evaluation. The prostate is normal in size. BONES / SOFT TISSUES: There is degenerative disc disease of the spine. There is fusion of the sacroiliac joints. CT/CT abdomen pelvis wo IV con IMPRESSION: 1. No evidence of nephrolithiasis or ureteral obstruction. 2. Ill-defined, somewhat wedge-shaped appearing hypodensity in the spleen with infiltration of the adjacent perisplenic fat. Findings could represent an infarct. A contrast-enhanced examination may be helpful. Electronically signed by: Phuc Rhodes MD 12/18/2024 08:30 AM EDT RP
--- NOTE | ~2024-12-18 | CT_ITS ---
EXAMINATION: CT ABDOMEN AND PELVIS WITH CONTRAST CLINICAL INFORMATION: Spleen infarct COMPARISON: None available. TECHNIQUE: Multidetector volumetric images were obtained from the superior aspect of the liver through the pubic symphysis following administration 85 mL of Omnipaque 350 intravenous contrast. Sagittal and coronal reformatted images were obtained on the technologist's workstation. Oral contrast: No This CT examination was performed using dose optimization techniques as appropriate, variously including the following: *Automated exposure control *Adjustment of mA and/or kV according to patient size (this includes techniques or standardized protocols for targeted exams where dose is matched to indication/reason for exam; i.e. extremities or head) *Use of iterative reconstruction technique DLP: 594 mGY*cm FINDINGS: LUNG BASES: The visualized lung bases are unremarkable. LIVER, GALLBLADDER, AND BILIARY TREE: The liver is normal in size, shape, and attenuation. No focal hepatic lesion or biliary ductal dilatation is present. The gallbladder is unremarkable with no evidence of radiopaque gallstones, gallbladder wall thickening, or obvious pericholecystic inflammatory changes. PANCREAS: Unremarkable. SPLEEN: There is a 3 cm wedge-shaped area of low-attenuation in the posterior lateral aspect of the spleen. ADRENAL GLANDS: Unremarkable. KIDNEYS AND URETERS: The kidneys are normal in size, shape, and attenuation. No hydronephrosis, hydroureter, or calculi seen. No perinephric stranding. BLADDER: The bladder is incompletely distended. It appears diffusely thick walled. GASTROINTESTINAL TRACT: There is a 2.3 cm versus outpouching of the descending portion of the duodenum likely representing a diverticulum. The appendix is within normal limits. The gastrointestinal tract is otherwise unremarkable. ABDOMINAL WALL: No significant hernia is appreciated. LYMPH NODES: Normal. VASCULAR: Unremarkable. PELVIC VISCERA: Unremarkable. OSSEOUS STRUCTURES: Severe multilevel degenerative changes are present in the lumbar spine with disc space narrowing, Schmorl's nodes, and degenerative endplate irregularity with sclerosis. There is also moderate facet osteoarthritis in the lower lumbar spine. There is moderate osteoarthritis involving the left hip and mild changes in the right. There is ankylosis involving portions of the SI joints. CT/CT abdomen pelvis w IV con IMPRESSION: Suspected splenic infarct. There is a 3 cm wedge-shaped area of hypoattenuation in the posterior lateral spleen. In the absence of trauma, this is most consistent with infarct. Splenic artery appeared grossly patent. Moderate severe degenerative changes are present in the lower lumbar spine. 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 There is moderate left and mild right hip osteophytes. There is a small [place] duodenal diverticulum in the descending portion of the duodenum. Fleischner guidelines were followed. Electronically signed by: Christophe Valenzuela MD 12/18/2024 10:39 AM EDT
[2024-12-18 06:43] VITALS: BP 138/71; PULSE 96; RESP 18; TEMP 36.8; O2SAT 95; BMI 34.7
--- NOTE | 2024-12-18 07:09 | ED.ABDPAIN ---
HPI - Abdominal Pain General Chief Complaint: Abdominal Pain Stated Complaint: Abdominal Pain Time Seen by Provider: 12/18/24 07:07 History of Present Illness HPI narrative: Patient is an 89-year-old male presents today with having left-sided flank pain radiating to the left groin left lower quadrant area for the last 4 days. Worsened with cough. Positive nausea no vomiting. No history of abdominal surgery. No fever no chills. No chest pain or diaphoresis. Patient from home. Related Data Home Medications ?Medication ?Instructions ?Recorded ?Confirmed aspirin 81 mg tablet,delayed 81 mg PO DAILY 11/26/20 08/31/24 release (Adult Low Dose Aspirin) atenolol 25 mg tablet 25 mg PO DAILY 11/26/20 08/31/24 amlodipine 10 mg tablet 10 mg PO DAILY 11/16/22 08/31/24 albuterol sulfate 90 mcg/actuation 2 puff inhalation Q6H PRN 12/10/22 08/31/24 aerosol inhaler Shortness Of Breath Or Wheezing cetirizine 10 mg tablet 10 mg PO DAILY PRN Allergy Symptoms 12/10/22 08/31/24 colchicine 0.6 mg tablet 0.6 mg PO DAILY 12/10/22 08/31/24 fluticasone furoate 100 1 ea inhalation QAM 12/10/22 08/31/24 mcg-vilanterol 25 mcg/dose inhalation powder (Breo Ellipta) omeprazole 20 mg capsule,delayed 20 mg PO DAILY@0630 12/18/24 release Previous Rx's ?Medication ?Instructions ?Recorded polyethylene glycol 3350 17 17 g PO DAILY PRN constipation 30 08/26/23 gram/dose oral powder (Miralax) days #510 grams sucralfate 1 gram tablet 1 g PO BID 30 days #60 tabs 08/31/24 Allergies Allergy/AdvReac Type Severity Reaction Status Date / Time No Known Allergies Allergy Verified 12/18/24 06:46 Review of Systems Review of Systems Positive abdominal pain Yes all other systems are reviewed and are negative PMFSH Past Medical History Attestation statement: The following information was validated with the patient. Medical History Enlarged prostate Anemia Gout Asthma Hypertension Surgical History History of esophagogastroduodenoscopy (EGD) Hx of colonoscopy Hx of LASIK Family History Family History Brother Colon cancer Social History Social History Are you a primary senior care specialist to a significant other at home: No Do you presently have visiting nurse or other home services: No Alcohol intake: current Alcohol type: wine Patient Tobacco Use Status: Former Tobacco user Smoked in Last 30 Days: No Advance Directives: No Advance Directives Information Provided: Yes Nutrition Risks: No Nutritional Risk Physical Exam ED Exam Exam: Appearance: Alert. Oriented X3. No acute distress. Eyes: Pupils equal, round and reactive to light. ENT: Pharynx normal. Neck: Normal inspection. Neck supple. No lymph nodes noted. No crepitus CVS: Normal heart rate and rhythm. Pulses normal. Normal S1 and S2 Respiratory: No respiratory distress. Breath sounds normal. No Wheezing. No rales Abdomen: Soft and nontender. No rigidity. No distention. good BS x4 Skin: Skin warm and dry. Normal skin color. Normal skin turgor. Extremities: No lower extremity edema. Neurovascular intact to all extremities. No Lacerations. No Rash Neuro: Oriented X 3. No motor deficit. No sensory deficit. Moving all extermities. No slurred speech Vital Signs: Vital Signs - 24 hr 12/18/24 06:43 12/18/24 07:15 12/18/24 10:55 Temperature 98.3 F 98.0 F 97.6 F Pulse Rate 96 93 69 Respiratory Rate 18 16 15 Blood Pressure 138/71 109/54 L 102/47 L Pulse Oximetry 95 95 95 Oxygen Delivery Method Room Air Room Air Room Air 12/18/24 13:19 Temperature 98.1 F Pulse Rate 94 Respiratory Rate 18 Blood Pressure 117/71 Pulse Oximetry 96 Oxygen Delivery Method BMI result Body Mass Index 34.7 Medical Decision Making Medical Decision Making MDM Narrative: 89-year-old male presents today with having left groin pain radiating down to the left flank area for the last 4 days. Patient's white count is normal. Hemoglobin is 12.6. Patient is creatinine is normal at 1.24 urine showed no signs of infection suggest patient has pyelo. CT scan of the abdomen pelvis showed no evidence of kidney stone. No hydro. It did show a possible splenic infarct. Patient has no hypercoagulable state. Has no trauma. Case discussed with surgery. Nothing acute to do. Recommend patient follow-up on an outpatient basis. We will consult Heme-Onc and have patient follow-up for a hypercoagulable workup. Case discussed with heme Onc. Wants patient to be admitted for hypercoagulable workup and started on anticoagulation. Started on a dose of Lovenox. Hospitalist team was consulted. Differential Diagnosis Differential Diagnoses: The differential diagnosis associated with the presentation includes Kidney stone, obstruction, abscess, perforation Admission/Observation Consideration of admission/observation: Escalation of care including admission/observation considered Consult Healthcare Provider Management of the patient was discussed with: Hospitalist and Design Checker (Heme Onc and surgery) Heme Onc team was consulted. Surgical team consulted Lab Data MDM Lab Attestation statement: I reviewed the patient's lab results. 12/18/24 12:30 12/18/24 07:14 Labs: Lab Results 12/18/24 12/18/24 12/18/24 Range/Units 07:14 12:30 13:13 WBC 5.6 5.5 (4.8-10.8) X10*3/uL RBC 4.88 4.54 L (4.60-5.80) X10*6/uL Hgb 12.6 L 11.8 L (14.0-18.0) g/dl Hct 39.8 L 37.2 L (42.0-52.0) % MCV 81.6 81.9 (80.0-98.0) fL MCH 25.8 L 26.0 L (27.0-33.0) pg MCHC 31.7 31.7 (31.0-36.0) g/dl RDW 17.2 H 17.3 H (11.0-16.0) % Plt Count 246 217 (160-400) X10*3/uL MPV 9.5 9.9 (9.4-12.4) fL Immature Gran % (Auto) 0.2 (0.0-0.4) % Neut % (Auto) 49.3 (45-73) % Lymph % (Auto) 36.9 (20-40) % Forest % (Auto) 10.9 (2-11) % Eos % (Auto) 2.3 (0-4) % Baso % (Auto) 0.4 (0-2) % Lymph # (Auto) 2.1 (1.2-4.9) X10*3/uL Forest # (Auto) 0.6 (0.1-1.2) X10*3/uL Eos # (Auto) 0.1 (0.0-0.4) X10*3/uL Baso # (Auto) 0.0 (0.0-0.2) X10*3/uL Abs Immat Gran (auto) 0.01 (0.00-0.03) X10*3/uL Absolute Neuts (auto) 2.8 (2.0-8.3) x10*3/uL Absolute Nucleated RBC 0.000 0.000 (0.0-0.012) X10*3/uL Nucleated RBC % (auto) 0.0 0.0 (0.0-0.2) /100WBC PT 12.9 H (10.9-12.4) SEC INR 1.1 (0.9-1.1) APTT 27.8 (26.7-34.1) SEC Fibrinogen 485 Cancelled (259-690) MG/DL D-Dimer High Sensitivty 1261 Cancelled NG/ML Sodium 142 (135-145) mmol/L Potassium 4.0 (3.3-5.1) mmol/L Chloride 108 (96-108) mmol/L Carbon Dioxide 27 (22-29) mmol/L Anion Gap 11 L (12-20) BUN 16 (9-16) mg/dL Creatinine 1.24 (0.5-1.4) mg/dL Estim Creat Clear Calc 42.8 Estimated GFR 55 Random Glucose 109 (60-115) mg/dL Calcium 9.4 (8.4-10.2) mg/dL Total Bilirubin 1.3 H (0.0-1.0) mg/dL AST 40 H (5-37) U/L ALT 32 (0-40) U/L Alkaline Phosphatase 97 (39-117) U/L Total Protein 7.5 (6.5-8.0) g/dL Albumin 4.5 (3.5-5.0) g/dL Lipase 29 (8-78) U/L Urine Color Dark Yellow Urine Appearance Clear Urine pH 5.5 (5.0-9.0) Ur Specific Ballantine 1.025 (1.005-1.025) Urine Protein Trace (Neg-Trace) mg/dL Urine Glucose (UA) Negative (Negative) mg/dL Urine Ketones Trace (Negative) mg/dL Urine Blood Negative (Negative) Urine Nitrite Negative (Negative) Ur Leukocyte Esterase Trace H (Negative) Urine RBC 0-2 (0-2) /HPF Urine WBC 0-5 (0-5) /HPF Ur Squamous Epith Cells 0-2 (0-2) /HPF Urine Bacteria None Seen (None Seen) Hyaline Casts 0-2 (0-2) /LPF Independent Interpretation I performed an independent interpretation of an: CT Scan (No obstruction no abscess no perforation) Radiology Impression Discussion of test interpretation with radiology: I have reviewed the radiologist's reading. External Record Review External record reviewed: Inpatient record Medications Administered Generic Name Dose Route Start Last Admin Trade Name Freq PRN Reason Stop Dose Admin Enoxaparin Sodium 90 mg 12/18/24 14:00 12/18/24 13:15 Enoxaparin Sodium 100 Mg/Ml Syringe SUBCUT 90 mg Q12H ARNOLD Administration Pantoprazole Sodium 40 mg 12/18/24 13:10 12/18/24 13:15 Pantoprazole Sodium 40 Mg/10 Ml Vial IVPUSH 40 mg DAILY@0630 ARNOLD Administration Discontinued Medications Generic Name Dose Route Start Last Admin Trade Name Freq PRN Reason Stop Dose Admin Iohexol 85 ml 12/18/24 09:57 12/18/24 09:57 Iohexol 350 Mg/Ml 100 Ml Infus..Btl IV 12/18/24 09:58 85 ml ONCE ONE Administration Ketorolac Tromethamine 15 mg 12/18/24 07:14 12/18/24 07:24 Ketorolac Tromethamine 15 Mg/Ml Vial IVPUSH 12/18/24 07:15 15 mg ONCE ONE Administration Ondansetron HCl 4 mg 12/18/24 07:14 12/18/24 07:24 Ondansetron Hcl 4 Mg/2 Ml Vial IVPUSH 12/18/24 07:15 4 mg ONCE ONE Administration Discharge Plan Discharge Clinical Impression: Splenic infarction Patient Disposition: Admitted As Inpatient Print Language: French
[2024-12-18 07:15] VITALS: BP 109/54; PULSE 93; RESP 16; TEMP 36.7; O2SAT 95
[2024-12-18 07:19] LABS: MANUAL DIFF FLAG NO
[2024-12-18 07:22] LABS: Appearance Urine Clear; Glucose Urine UA Negative (Negative); PH 5.5 (5.0-9.0); Specific Gravity - Urine 1.025 (1.005-1.025); UMIC TRIGGER UACC YES
[2024-12-18 07:25] LABS: Hematocrit 39.8 % (42.0-52.0); Hemoglobin 12.6 g/dl (14.0-18.0); Imm Gran Abs Auto 0.01 X10*3/uL (0.00-0.03); Imm Gran Pct Auto 0.2 % (0.0-0.4); Lymphocytes Absolute Auto 2.1 X10*3/uL (1.2-4.9); Mean Corpuscular HGB Conc 31.7 g/dl (31.0-36.0); Mean Corpuscular Hemoglobin 25.8 pg (27.0-33.0); Mean Corpuscular Volume 81.6 fL (80.0-98.0); NRBC Abs Auto 0.000 X10*3/uL (0.0-0.012); NRBC Pct Auto 0.0 /100WBC (0.0-0.2); Platelet Count 246 X10*3/uL (160-400); Red Blood Count 4.88 X10*6/uL (4.60-5.80); White Blood Count 5.6 X10*3/uL (4.8-10.8)
[2024-12-18 07:37] LABS: Alanine Aminotransferase 32 U/L (0-40); Albumin Level 4.5 g/dL (3.5-5.0); Alkaline Phosphatase 97 U/L (39-117); Anion Gap 11 (12-20); Aspartate Amino Transferase 40 U/L (5-37); Blood Urea Nitrogen 16 mg/dL (9-16); Calcium 9.4 mg/dL (8.4-10.2); Carbon Dioxide 27 mmol/L (22-29); Chloride 108 mmol/L (96-108); Creatinine Clr Calc Pharmacy 42.8; Estimated Glomerular Filt Rate 55; Lipase 29 U/L (8-78); Potassium 4.0 mmol/L (3.3-5.1); Sodium 142 mmol/L (135-145); Total Protein 7.5 g/dL (6.5-8.0)
--- OUTSIDE RECORDS SUMMARY | 2024-12-18 08:01 | XMS_ITS | Clinical Summary ---
Author Organization [address] [facility] Address [address] [place] [address] Phone Care Team Providers Care Steward/Stewardess Dining Room Name Role Phone Hoang Pro MD Primary Care Provi camelia Allergies No known active allergies Medications albuterol HFA (PROAIR HFA ; PROVENTIL HFA ; VENTOLIN HFA) 90 mcg/actuation inhaler Inhale 2 puffs by mouth every 6 (six) hours if needed for wheezing. Active senna (SENOKOT) 8.6 mg tablet Take 1 tablet (8.6 mg total) by mouth 1 (one) time each day. Active colchicine (Colcrys) 0.6 mg tablet Take by mouth 1 (one) time each day. Active amLODIPine (NORVASC) 2.5 mg tablet Take 1 tablet (2.5 mg total) by mouth 1 (one) time each day. Active fluticasone HFA (FLOVENT HFA) 110 mcg/actuation inhaler Inhale 1 puff by mouth 2 (two) times a day. Rinse mouth with water after use to reduce aftertaste and incidence of candidiasis. Do not swallow. Active atenoloL (TENORMIN) 25 mg tablet Take 1 tablet (25 mg total) by mouth 1 (one) time each day. Active montelukast (SINGULAIR) 10 mg tablet Take 1 tablet (10 mg total) by mouth at bedtime. Active fluticasone furoate-vilante roL (Breo Ellipta) 100-25 mcg/dose inhaler Inhale by mouth 1 (one) time each day. Active fluticasone propionate (FLONASE) 50 mcg/actuation nasal spray Administer 1 spray into each nostril 1 (one) time each day. Shake gently. Before first use, prime pump. After use, clean tip and replace cap. Active cetirizine (ZyrTEC) 10 mg tablet Take 1 tablet (10 mg total) by mouth 1 (one) time each day. Active omeprazole (PriLOSEC) [address] capsule Take 1 capsule (20 mg total) by mouth 1 (one) time each day. Do not crush or chew. Active Active Problems Problem Noted Date Diagnosed Date Asthma 10/20/2024 JACQUIE (obstructive sleep apnea) 10/20/2024 Allergic conjunctivitis and rhinitis 10/20/2024 GERD (gastroesophageal reflux disease) Encounters Date Type Department Care Team Description 11/01/2024 8:15 AM EDT Office Visit [address] [address] Azucena Sanchez MD Moderate asthma without complication, unspecified whether persistent (Primary Dx); Non-seasonal allergic rhinitis due to pollen; Gastroesophageal reflux disease without esophagitis; Obesity (BMI 30.0-34.9) from Last 3 Months Social History Tobacco Use Types Packs/Day Years Used Date Smoking Tobacco: Former Cigarettes Passive Smoke Exposure: Never Smokeless Tobacco: Never Sex and Gender Information Value Date Recorded Sex Assigned at Not on file Legal Sex Male 2:13 PM EDT Gender Identity Not on file Sexual Orientation Not on file Obstetrics History Last Filed Vital Signs Vital Sign Reading Time Taken Comments Blood Pressure 110/58 11/01/2024 8:31 AM EDT Pulse 60 11/01/2024 8:31 AM EDT Temperature 36.1 C (97 F) 11/01/2024 8:31 AM EDT Respiratory Rate 18 11/01/2024 8:31 AM EDT Oxygen Saturation 97% 11/01/2024 8:31 AM EDT Inhaled Oxygen Concentration - - Weight 94.8 kg (209 lb) 11/01/2024 8:31 AM EDT Height 162.6 cm (5' 4 ) 11/01/2024 8:31 AM EDT Body Mass Index 35.87 11/01/2024 8:31 AM EDT Plan of Treatment Upcoming Encounters Date Type Department Care Team ([facility] st Contact Info) Description 02/01/2025 8:00 AM EDT Office Visit [address] [place] [phone] Azucena Sanchez MD [address] [address] Health Maintenance Due Date Last Done Comments Depression Screening 05/17/2024 COVID-19 Vaccine ( season) 2024 02/08/2024, 09/30/2021, 06/05/2021, Additional history exists Falls Risk Assessment 09/28/2024 Social Influencers of Health Screening 09/28/2024 Hypertension/CHF/CAD Annual BMP Blood Test 11/01/2024 Influenza Vaccine (#1) 2025 , 02/12/2023, 02/23/2022, Additional history exists Cholesterol Screening (Lipid Panel) 07/04/2029 07/04/2024 DTaP,Tdap,and Td Vaccines (3 - Td or Tdap) 06/13/2034 06/13/2024, 02/02/2014 Pneumococcal Vaccine: 50+ Years Completed 12/17/2014, 05/29/2008 RSV Immunization Adult Patients Completed 05/02/2023 Zoster Vaccines Completed 01/18/2024, 05/18, [...] on patient's age to complete this topic MMR Vaccines Aged Out No longer eligi ble based on patient's age to complete this topic Meningococcal ACWY Vaccine Aged Out N o longer eligible based on patient's age to complete this topic Meningococcal B Vaccine Aged Out No l onger eligible based on patient's age to complete this topic RSV Immunization Patients Under 20 months Aged Out No longer eligible based on patient's age to complete this topic Varicella Vaccines Aged Out No longer eligible based on patient's age to complete this topic Insurance [facility] Member Subscriber Plan / Payer (Ef fective 2022-Present) Name:BAY MACKENZIE Relation to Subscriber:Self Name:Bay Mackenzie Payer ID:[id number] Group ID:[id number] Type:Not on file Address: [place] [address] [address] [id number] Care Teams Steward/Stewardess Dining Room Relationship Specialty Start Date End Date Hoang Pro MD [address] [place] [id number] PCP - General Internal Medicine 11/01/24
--- OUTSIDE RECORDS SUMMARY | 2024-12-18 08:01 | XMS_ITS | Encounter Summary ---
Author Organization [employer] Address [address] [facility] 7t [place] [address] Care Team Providers Care Wire Weaver Helper Name Role Phone Hoang Yusuf MD Primary Care Provide r Reason for Visit * Reason Comments Med Refill Encounter Details Date Type Department Care Team ([facility] st Contact Info) Description 11/13/2024 Refill [facility] MEDICINE [address] [place], [place] [phone] Hoang Yusuf MD [address] [place], [place] [phone] Chronic obstructive pulmonary disease, unspecified COPD type (CMS/HCC) Social History Tobacco Use Types Packs/Day Years Used Date Smoking Tobacco: Former Cigarettes Q uit: 10/03/1984 Passive Smoke Exposure: Past Smokeless Tobacco: Never [...] Care Team (Late st Contact Info) Description 01/11/2025 10:00 AM EDT Office Visit [facility] MEDICINE [address] [place] [id number] Hoang Yusuf MD [address] [place] [phone] documented as of this encounter Visit Diagnoses Diagnosis Chronic obstructive pulmonary disease, unspecified COPD type (CMS/HCC) documented in this encounter Additional Health Concerns Assessment Noted Time PHQ-9 Depression Total Score: 0 01/13/20 24 9:08 AM EDT documented as of this encounter Care Teams Wire Weaver Helper Relationship Specialty Start Date End Date Hoang Yusuf MD [address] [place] [address] PCP - General Internal Medicine 02/02/14 documented as of this encounter
[2024-12-18] MEDS: iohexoL 350 MG/ML 100 ML INFUS..BTL 85 ML IV (09:57)
[2024-12-18 10:55] VITALS: BP 102/47; PULSE 69; RESP 15; TEMP 36.4; O2SAT 95
--- NOTE | 2024-12-18 11:34 | PM.CNGS ---
History of Present Illness Consult details Consult date: 12/18/24 <Neo Fagan PA-C - Last Filed: 12/18/24 11:59> Reason for consult: other (splenic infarct) <Neo Fagan PA-C - Last Filed: 12/18/24 11:59> Narrative: 89-year-old male with a history of obesity, HTN, colon polyps, dysphagia, H pylori presenting to the emergency department with a 5 day history of left flank pain. Denies any previous episodes. The pain is intermittent, he feels pain when he coughs or laughs. He is denying nausea or vomiting, fever, chills. Currently feels comfortable, not experiencing pain at this time, states he take it does pain medication recently which may be why he isn't having pain currently. Has been able to eat and drink. Denies constipation or diarrhea. ED labs show no leukocytosis, H and H stable. 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 He denies allergies, denies surgical history. Endorses occasional alcohol use denies smoking or drug use. <Neo Fagan PA-C - Last Filed: 12/18/24 11:59> [facility] Past Medical History Medical History: Medical History Enlarged prostate Anemia Gout Asthma Hypertension <Neo Fagan PA-C - Last Filed: 12/18/24 11:59> Family History Family History: Family History Brother Colon cancer <Neo Fagan PA-C - Last Filed: 12/18/24 11:59> Surgical History Surgical History: Surgical History History of esophagogastroduodenoscopy (EGD) Hx of colonoscopy Hx of LASIK <Neo Fagan PA-C - Last Filed: 12/18/24 11:59> Social History Social History: Social History Household Members: Spouse Housing: Apartment Are you a primary rn palliative care to a significant other at home: No Do you presently have visiting nurse or other home services: No Alcohol intake: current Alcohol type: wine Patient Tobacco Use Status: Former Tobacco user Smoked in Last 30 Days: No Have you been hit, kicked, punched, or otherwise hurt by someone within the past year? If so, by whom?: No Do you feel safe in your current relationship?: Yes Is there a partner from a previous relationship who is making you feel unsafe now?: No Are you made to feel afraid or neglected: No Advance Directives: No Advance Directives Information Provided: Yes Do you have a plan to hurt others: No Plan Recently lost weight without trying: No How much weight loss: Not applicable Eating poorly because of decreased appetite: No Nutrition screen score: 0 Nutrition Risks: No Nutritional Risk Poor oral hygiene: No <Neo Fagan PA-C - Last Filed: 12/18/24 11:59> Meds Allergies/Adverse reactions: Allergies Allergy/AdvReac Type Severity Reaction Status Date / Time No Known Allergies Allergy Verified 12/18/24 06:46 <Neo Fagan PA-C - Last Filed: 12/18/24 11:59> Home medications: Home Medications ?Medication ?Instructions ?Recorded ?Confirmed ?Last Taken ?Type aspirin 81 mg tablet,delayed 81 mg PO DAILY 11/26/20 12/18/24 12/17/24 History release (Adult Low Dose Aspirin) atenolol 25 mg tablet 25 mg PO DAILY 11/26/20 12/18/24 12/17/24 History amlodipine 10 mg tablet 10 mg PO DAILY 11/16/22 12/18/24 12/17/24 History albuterol sulfate 90 mcg/actuation 2 puff inhalation Q4H PRN 12/10/22 12/18/24 Unknown History aerosol inhaler Shortness Of Breath Or Wheezing colchicine 0.6 mg tablet 0.6 mg PO DAILY 12/10/22 12/18/24 12/17/24 History fluticasone furoate 100 1 ea inhalation DAILY 12/10/22 12/18/24 12/17/24 History mcg-vilanterol 25 mcg/dose inhalation powder (Breo Ellipta) albuterol sulfate 2.5 mg/3 mL 2.5 mg inhalation Q6H PRN 12/18/24 12/18/24 Unknown History (0.083 %) solution for nebulization Shortness Of Breath Or Wheezing cholecalciferol (vitamin D3) 25 25 mcg PO DAILY 12/18/24 12/18/24 12/17/24 History mcg (1,000 unit) tablet (Vitamin D3) omeprazole 20 mg capsule,delayed 20 mg PO DAILY@0630 12/18/24 12/18/24 12/17/24 History release <HECTOR Goode Last Filed: 12/18/24 11:59> Physical Exam Vital Signs: Vital Signs: Last Vital Signs Temp 97.6 F 12/18/24 10:55 Pulse 69 12/18/24 10:55 Resp 15 12/18/24 10:55 BP 102/47 L 12/18/24 10:55 Pulse Ox 95 12/18/24 10:55 O2 Del Method Room Air 12/18/24 10:55 BMI result Body Mass Index 34.7 <HECTOR Goode Last Filed: 12/18/24 11:59> Const: General: comfortable and no acute distress <HECTOR Goode Last Filed: 12/18/24 11:59> Orientation/consciousness: patient oriented x3 <HECTOR Goode Last Filed: 12/18/24 11:59> Resp: Effort & Inspection: normal respiratory effort and able to speak in complete sentences <HECTOR Goode Last Filed: 12/18/24 11:59> GI: Other: Protuberant abdomen <HECTOR Goode Last Filed: 12/18/24 11:59> Inspection: No distended <HECTOR Goode Last Filed: 12/18/24 11:59> Palpation (GI): Soft to palpation, not firm, Tenderness to palpation present (GI) in the epigastrum and in the LUQ, no guarding and not rigid <HECTOR Goode Last Filed: 12/18/24 11:59> Neuro: General: patient oriented x3 <HECTOR Goode Last Filed: 12/18/24 11:59> Results Labs Result diagrams: 12/19/24 05:21 12/19/24 05:21 <HECTOR Goode Last Filed: 12/18/24 11:59> Labs: Abnormal lab results 12/18/24 Range/Units 07:14 Hgb 12.6 L (14.0-18.0) g/dl Hct 39.8 L (42.0-52.0) % MCH 25.8 L (27.0-33.0) pg RDW 17.2 H (11.0-16.0) % Anion Gap 11 L (12-20) Total Bilirubin 1.3 H (0.0-1.0) mg/dL AST 40 H (5-37) U/L Ur Leukocyte Esterase Trace H (Negative) Short CBC 12/18/24 Range/Units 07:14 WBC 5.6 (4.8-10.8) X10*3/uL Hgb 12.6 L (14.0-18.0) g/dl Hct 39.8 L (42.0-52.0) % Plt Count 246 (160-400) X10*3/uL BMP 12/18/24 07:14 Sodium 142 Potassium 4.0 Chloride 108 Carbon Dioxide 27 BUN 16 Creatinine 1.24 Calcium 9.4 Liver Function 12/18/24 Range/Units 07:14 Total Bilirubin 1.3 H (0.0-1.0) mg/dL AST 40 H (5-37) U/L ALT 32 (0-40) U/L Alkaline Phosphatase 97 (39-117) U/L Albumin 4.5 (3.5-5.0) g/dL Urine 12/18/24 Range/Units 07:14 Urine Color Dark Yellow Urine Appearance Clear Urine pH 5.5 (5.0-9.0) Ur Specific [place] 1.025 (1.005-1.025) Urine Protein Trace (Neg-Trace) mg/dL Urine Glucose (UA) Negative (Negative) mg/dL All other labs normal. <Neo Fagan PA-C - Last Filed: 12/18/24 11:59> Assessment and Plan (1) Splenic infarct: Status: Acute <Neo Fagan PA-C - Last Filed: 12/18/24 11:59> 89-year-old male with left flank pain x4 days CAT scan shows a splenic infarct, about 3 cm Currently denies any pain or tenderness Looks well He is comfortable Hemodynamically stable No regular heart rhythm Very benign exam Management we will be positive for the splenic infarct with pain meds, adequate hydration Investigate for allergy of splenic infarct -maybe thromboembolic event, septic emboli (unlikely), hypercoagulable condition, sickle cell disease - may be done as outpatient Clinically doing well Discussed with emergency room staff Seen and examined independently <Andrei Martinez MD - Last Filed: 12/19/24 13:28> 89-year-old male with a history of obesity, HTN, colon polyps, dysphagia, H pylori presenting to the emergency department with a 5 day history of left flank pain. Pain is intermittent, currently well controlled with current pain regimen. Pain increases with increased abdominal pressure such as coughing. There was no associated nausea or vomiting. On exam patient appears comfortable, he is mildly tender in the left upper quadrant in the epigastric area without guarding or peritoneal signs. His blood pressures are soft, chart review shows he typically runs low on the diastolic pressure tracing back to 2022 His labs are reassuring, no leukocytosis, H&H is stable, kidney function stable. I reviewed CT showing a 3 cm splenic infarct in the posterolateral aspect of the spleen. At this point, no current indication for surgical intervention. Would recommend supportive care, pain management, hydration. Unsure if this patient is requiring inpatient observation, we will defer to Medicine team for their recommendations. Would recommend that the patient have a workup, either inpatient or as an outpatient, to determine the etiology of the infarct, possible hypercoagulable states, sickle cell, infections. The patient is admitted we will continue to follow up to his admission <Neo Fagan PA-C - Last Filed: 12/18/24 11:59> Procedures Date of Service Date of Service: 12/18/24 <Neo Fagan PA-C - Last Filed: 12/18/24 11:59> 12/19/24 <Andrei Martinez MD - Last Filed: 12/19/24 13:28>
[2024-12-18 12:38] LABS: Hematocrit 37.2 % (42.0-52.0); Hemoglobin 11.8 g/dl (14.0-18.0); Mean Corpuscular HGB Conc 31.7 g/dl (31.0-36.0); Mean Corpuscular Hemoglobin 26.0 pg (27.0-33.0); Mean Corpuscular Volume 81.9 fL (80.0-98.0); NRBC Abs Auto 0.000 X10*3/uL (0.0-0.012); NRBC Pct Auto 0.0 /100WBC (0.0-0.2); Platelet Count 217 X10*3/uL (160-400); Red Blood Count 4.54 X10*6/uL (4.60-5.80); White Blood Count 5.5 X10*3/uL (4.8-10.8)
[2024-12-18 12:44] LABS: INTERNATIONAL NORM RATIO 1.1 (0.9-1.1); Prothrombin Time 12.9 SEC (10.9-12.4)
[2024-12-18 12:47] LABS: Partial Thromboplastin Time 27.8 SEC (26.7-34.1)
--- NOTE | 2024-12-18 13:07 | PM.IMHP ---
History of Present Illness Date of Service: 12/18/24 Attending physician on admission: Ricki Guillory Chief Complaint: Left abdominal pain Daquan Valencia is a 89 years old man with past medical history significant for essential hypertension, GERD, gout and asthma presents to the emergency department complaining of left anterior flank pain that started last . He describes the pain as sharp, constant, intensity 10/10 and radiating to the chest. Pain increases with deep inspiration, cough or yawning. She denied any fever, cough, palpitations, diarrhea, dizziness, shortness on breath, nausea, vomiting, pain with urination or bloody urine. He did not report black stools. He denied personal or family history of clots or cancer. He take aspirin daily. He is a former tobacco smoker -quit in 1972. Denied history of alcohol abuse or illicit drug use. In the ED, he was found to have stable vital signs. Blood workup showed no leukocytosis. Hemoglobin dropped from 12.6 to 11.8. INR is 1.1 PT 12.9 and PTT 27.8 P. There are no electrolyte imbalances. BUN is 16 creatinine 1.24. Total bilirubin is 1.3, AST 40, ALT 30 and Alk-phos 97. Urinalysis showed no UTI. Abdominal pelvis CT scan with and w/o IV contrast showed no evidence nephrolithiasis or hooded obstruction. It did showed suspected splenic infarct (3 cm) splenic artery appeared grossly patch. ECG showed atrial fibrillation with adequate rate control. ED tx: Ketorolac 50 mg IV, Zofran 4 mg IV Review of Systems Review of Systems: All 12 systems were reviewed and normal except as noted in HPI. [facility] Medical History Enlarged prostate Anemia Gout Asthma Hypertension Family History Brother Colon cancer Surgical History History of esophagogastroduodenoscopy (EGD) Hx of colonoscopy Hx of LASIK Social History Are you a primary primary care provider to a significant other at home: No Do you presently have visiting nurse or other home services: No Alcohol intake: current Alcohol type: wine Patient Tobacco Use Status: Former Tobacco user Smoked in Last 30 Days: No Advance Directives: No Advance Directives Information Provided: Yes Nutrition Risks: No Nutritional Risk Meds Allergies Allergy/AdvReac Type Severity Reaction Status Date / Time No Known Allergies Allergy Verified 12/18/24 06:46 Active Medications: Current Medications Acetaminophen (Acetaminophen 325 Mg Tablet) 975 mg PO Q6H PRN PRN Reason: Pain, Mild 1-3,fever,headache Calcium Carbonate (Calcium Carbonate 750 Mg Tab.Chew) 750 mg PO Q4H PRN PRN Reason: Heartburn Enoxaparin Sodium (Enoxaparin Sodium 100 Mg/Ml Syringe) 90 mg SUBCUT Q12H AR[place] Magnesium Hydroxide (Milk Of Magnesia 30 Ml Oral.Susp) 30 ml PO DAILY PRN PRN Reason: Constipation Melatonin (Melatonin 3 Mg Tablet) 6 mg PO BEDTIME PRN PRN Reason: Insomnia Sodium Chloride (0.9 % Sodium Chloride Flush 3 Ml Syringe) 3 ml IVFLUSH QSHIFT ARNOLD Home Medications ?Medication ?Instructions ?Recorded ?Confirmed ?Last Taken ?Type aspirin 81 mg tablet,delayed 81 mg PO DAILY 11/26/20 08/31/24 12/14/22 History release (Adult Low Dose Aspirin) atenolol 25 mg tablet 25 mg PO DAILY 11/26/20 08/31/24 12/15/22 History amlodipine 10 mg tablet 10 mg PO DAILY 11/16/22 08/31/24 12/15/22 History albuterol sulfate 90 mcg/actuation 2 puff inhalation Q6H PRN 12/10/22 08/31/24 Unknown History aerosol inhaler Shortness Of Breath Or Wheezing cetirizine 10 mg tablet 10 mg PO DAILY PRN Allergy Symptoms 12/10/22 08/31/24 Unknown History colchicine 0.6 mg tablet 0.6 mg PO DAILY 12/10/22 08/31/24 Unknown History fluticasone furoate 100 1 ea inhalation QAM 12/10/22 08/31/24 12/15/22 History mcg-vilanterol 25 mcg/dose inhalation powder (Breo Ellipta) omeprazole 20 mg capsule,delayed 20 mg PO DAILY@0630 12/18/24 Unknown History release Physical Exam Vital Signs and Narrative: Vital Signs: Last Vital Signs Temp 97.6 F 12/18/24 10:55 Pulse 69 12/18/24 10:55 Resp 15 12/18/24 10:55 BP 102/47 L 12/18/24 10:55 Pulse Ox 95 12/18/24 10:55 O2 Del Method Room Air 12/18/24 10:55 BMI result Body Mass Index 34.7 Constitutional - Awake and Alert, No apparent distress HEENT - PER, EOMI Heart - irregular rate, normal rhythm, No murmurs Lungs - Normal lung expansion, Normal respiratory effort, No respiratory distress, CTA bilaterally Abdomen - NT / ND; +BS; No rebound or guarding - (+) CVA tenderness Extremities - no calf tenderness bilaterally, no swelling Musculoskeletal - Normal inspection, normal ROM Skin - Warm/Dry. No pallor. Neurological - Alert & oriented x3. Moving all extremities spontaneously. Normal gait. Normal speech. Psychological - Appropriate affect Results Labs 12/18/24 12:30 12/18/24 07:14 Labs: Laboratory Results - last 24 hr 12/18/24 12/18/24 07:14 12:30 MCV 81.6 81.9 MCH 25.8 L 26.0 L MCHC 31.7 31.7 RDW 17.2 H 17.3 H Plt Count 246 217 MPV 9.5 9.9 Immature Gran % (Auto) 0.2 Neut % (Auto) 49.3 Lymph % (Auto) 36.9 [place] % (Auto) 10.9 Eos % (Auto) 2.3 Baso % (Auto) 0.4 Lymph # (Auto) 2.1 [place] # (Auto) 0.6 Eos # (Auto) 0.1 Baso # (Auto) 0.0 Abs Immat Gran (auto) 0.01 Absolute Neuts (auto) 2.8 Absolute Nucleated RBC 0.000 0.000 Nucleated RBC % (auto) 0.0 0.0 PT 12.9 H INR 1.1 APTT 27.8 Anion Gap 11 L Estim Creat Clear Calc 42.8 Estimated GFR 55 Random Glucose 109 Calcium 9.4 Total Bilirubin 1.3 H AST 40 H ALT 32 Alkaline Phosphatase 97 Total Protein 7.5 Albumin 4.5 Lipase 29 Urine Color Dark Yellow Urine Appearance Clear Urine pH 5.5 Ur Specific [place] 1.025 Urine Protein Trace Urine Glucose (UA) Negative Urine Ketones Trace Urine Blood Negative Urine Nitrite Negative Ur Leukocyte Esterase Trace H Urine RBC 0-2 Urine WBC 0-5 Ur Squamous Epith Cells 0-2 Urine Bacteria None Seen Hyaline Casts 0-2 Imaging Radiologist's Impressions: Impressions Abdomen/Pelvis CT 12/18/24 06:58 IMPRESSION: 1. No evidence of nephrolithiasis or ureteral obstruction. 2. Ill-defined, somewhat wedge-shaped appearing hypodensity in the spleen with infiltration of the adjacent perisplenic fat. Findings could represent an infarct. A contrast-enhanced examination may be helpful. Electronically signed by: Phuc Rhodes MD 12/18/2024 08:30 AM EDT RP Abdomen/Pelvis CT 12/18/24 09:49 IMPRESSION: Suspected splenic infarct. There is a 3 cm wedge-shaped area of hypoattenuation in the posterior lateral spleen. In the absence of trauma, this is most consistent with infarct. Splenic artery appeared grossly patent. Moderate severe degenerative changes are present in the lower lumbar spine. 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 There is moderate left and mild right hip osteophytes. There is a small [place] duodenal diverticulum in the descending portion of the duodenum. Fleischner guidelines were followed. Electronically signed by: Christophe Valenzuela MD 12/18/2024 10:39 AM EDT RP Assessment and Plan (1) Splenic infarct: Status: Acute (2) Anemia: Qualifiers: Anemia type: unspecified type Qualified Code(s): D64.9 - Anemia, unspecified Status: Acute (3) New onset a-fib: Status: Acute Plan Daquan Valencia is a 89 y/o man presents with: Left flank pain secondary to suspected splenic infarct; atrial fibrillation, new onset -rate controlled. Observation/med-surg under hospitalist service. Check hypercoagulable state panel: D-dimer, fibrinogen, factor V laden, beta 2 glycoprotein antibody, antithrombin 3 antigen, homocystine, JAK2 mutation,, lupus anticoagulant, protein C and S Ag, prothrombin [id number]. Lovenox 90 mg SQ bid. Hold ASA for now. Continue atenolol. Dilaudid and acetaminophen p.r.n. for pain. Check TTE. Hematology consult -Dw Dr. Thomas and Surgert by ED physician Dr. Douglass. Cardiology consult. Chronic anemia. Recheck H&H at 7 pm. If trending down will hold Lovenox. Check occult blood test. Essential hypertension. Continue atenolol amlodipine. GERD. PPI IV. Gout. Continue colchicine. DVT prophylaxis: Lovenox Code status: Full Quality Stroke Does the patient have a stroke diagnosis?: No VTE Prior VTE?: No VTE Risk Level:: Medical - moderate - high VTE Device Contraindication: Treatment Not Indicated VTE Drug Contraindication: N/A - Med Ordered
[2024-12-18 13:19] VITALS: BP 117/71; PULSE 94; RESP 18; TEMP 36.7; O2SAT 96
[2024-12-18 13:25] LABS: Fibrinogen 485 MG/DL (259-690)
[2024-12-18 13:27] LABS: D Dimer High Sensitivity 1261 NG/ML
--- NOTE | 2024-12-18 13:47 | PHA.MEDREC ---
Addendum entered by Juvenal Mercer PharmD 12/18/24 13:49: reviewed Original Note: Pharmacy Consult ? Medication Reconciliation Pharmacy has completed the medication reconciliation. Spoke with pt and he has on hand pharmacy Rx labels he used to confirm the med rec with me.
[2024-12-18 16:00] VITALS: BP 114/59; PULSE 77; RESP 17; TEMP 36.2; O2SAT 95
[2024-12-18 16:19] VITALS: BMI 35.1
[2024-12-18] MEDS: 0.9 % Sodium Chloride Flush 3 ML SYRINGE IVFLUSH (16:43)
[2024-12-18 19:25] VITALS: BP 130/72; PULSE 76; RESP 18; TEMP 36.2; O2SAT 94
[2024-12-18 19:27] LABS: Hematocrit 38.7 % (42.0-52.0); Hemoglobin 12.1 g/dl (14.0-18.0)
[2024-12-19 02:49] VITALS: BP 94/53; PULSE 64; RESP 16; TEMP 36.1; O2SAT 93
[2024-12-19 05:37] LABS: MANUAL DIFF FLAG NO
[2024-12-19 05:38] LABS: Hematocrit 40.8 % (42.0-52.0); Hemoglobin 12.7 g/dl (14.0-18.0); Imm Gran Abs Auto 0.02 X10*3/uL (0.00-0.03); Imm Gran Pct Auto 0.4 % (0.0-0.4); Lymphocytes Absolute Auto 2.5 X10*3/uL (1.2-4.9); Mean Corpuscular HGB Conc 31.1 g/dl (31.0-36.0); Mean Corpuscular Hemoglobin 25.8 pg (27.0-33.0); Mean Corpuscular Volume 82.8 fL (80.0-98.0); NRBC Abs Auto 0.000 X10*3/uL (0.0-0.012); NRBC Pct Auto 0.0 /100WBC (0.0-0.2); Platelet Count 256 X10*3/uL (160-400); Red Blood Count 4.93 X10*6/uL (4.60-5.80); White Blood Count 5.3 X10*3/uL (4.8-10.8)
[2024-12-19 06:01] LABS: Anion Gap 13 (12-20); Blood Urea Nitrogen 19 mg/dL (9-16); Calcium 9.0 mg/dL (8.4-10.2); Carbon Dioxide 28 mmol/L (22-29); Chloride 105 mmol/L (96-108); Creatinine Clr Calc Pharmacy 46.0; Estimated Glomerular Filt Rate 60; Potassium 4.2 mmol/L (3.3-5.1); Sodium 142 mmol/L (135-145)
[2024-12-19 07:25] VITALS: BP 107/63; PULSE 71; RESP 16; TEMP 36.3; O2SAT 95
[2024-12-19] MEDS: 0.9 % Sodium Chloride Flush 3 ML SYRINGE IVFLUSH ×4 (08:21→20:17)
[2024-12-19] MEDS: Fluticasone/Vilanterol 100/25 BLST.W.DEV 1 PUFF INHALE (08:30)
[2024-12-19 08:31] VITALS: PULSE 70; RESP 16
[2024-12-19 08:57] LABS: OBS Int Ctl Valid YES; OBS1 NEGATIVE (NEGATIVE)
--- NOTE | 2024-12-19 09:16 | PM.CNCAR ---
History of Present Illness History of Present Illness Date of Service: 12/19/24 Chief complaint: Splenic Infarct Narrative: This is a cardiology consultation regarding atrial fibrillation. Patient with comorbidities including hypertension, GERD, presenting for left anterior flank pain. Underwent abdomen CT and that showed splenic infarct. From the cardiac standpoint, EKG had shown atrial fibrillation. Hence we are consulted. Patient himself denies any previous cardiac history. No known coronary disease myocardial infarction or cardiomyopathy or in fact anything else along those lines. Currently, he denies any cardiac complaints. Review of Systems Review of Systems: Yes all other systems are reviewed and are negative Constitutional: Constitutional: Reports as per HPI and Reports no additional constitutional complaints Eyes: Eyes: Reports as per HPI and Denies no additional eye complaints ENT: Denies system reviewed and no additional complaints, except as documented and Reports as per HPI Cardiovascular: Cardiovascular: Reports as per HPI, Reports no additional cardiovascular complaints, Denies acrocyanosis, Denies cool extremities, Denies chest pain, Denies leg edema, Denies lightheadedness, Denies palpitations and Denies dyspnea Respiratory: Respiratory: Reports as per HPI, Denies no additional respiratory complaints and Denies dyspnea Gastrointestinal: Gastrointestinal: Reports as per HPI and Denies no additional gastrointestinal complaints Genitourinary: Genitourinary: Reports no additional male genitourinary complaints and Reports as per HPI Musculoskeletal: Musculoskeletal: Reports no additional musculoskeletal complaints and Reports as per HPI Integumentary/Breasts: Skin/Breast: Reports system reviewed and no additional complaints, except as docu Neurologic: Reports system reviewed and no additional complaints, except as documented and Reports as per HPI Psychiatric: Psychiatric: Reports no additional psychiatric complaints and Reports as per HPI Endocrine: Endocrine: Reports no additional endocrine complaints, Reports as per HPI and Denies palpitations Hematologic/Lymphatic: Hematologic/Lymphatic: Reports no additional hematologic/lymphatic complaints and Reports as per HPI Allergic/Immunologic: Allergic/Immunologic: Reports no additional allergic/immunologic complaints and Reports as per HPI PMF Past Medical History Medical History Enlarged prostate Anemia Gout Asthma Hypertension Family History Family History Brother Colon cancer Surgical History Surgical History History of esophagogastroduodenoscopy (EGD) Hx of colonoscopy Hx of LASIK Social History Social History Household Members: Spouse Housing: Apartment Are you a primary care companion to a significant other at home: No Do you presently have visiting nurse or other home services: No Alcohol intake: current Alcohol type: wine Patient Tobacco Use Status: Former Tobacco user Smoked in Last 30 Days: No Have you been hit, kicked, punched, or otherwise hurt by someone within the past year? If so, by whom?: No Do you feel safe in your current relationship?: Yes Is there a partner from a previous relationship who is making you feel unsafe now?: No Are you made to feel afraid or neglected: No Advance Directives: No Advance Directives Information Provided: Yes Do you have a plan to hurt others: No Plan Recently lost weight without trying: No How much weight loss: Not applicable Eating poorly because of decreased appetite: No Nutrition screen score: 0 Nutrition Risks: No Nutritional Risk Poor oral hygiene: No Meds Allergies Allergy/AdvReac Type Severity Reaction Status Date / Time No Known Allergies Allergy Verified 12/18/24 06:46 Active Medications: Current Medications Acetaminophen (Acetaminophen 325 Mg Tablet) 975 mg PO Q6H PRN PRN Reason: Pain, Mild 1-3,fever,headache Albuterol Sulfate (Albuterol Sulfate (0.083%) 2.5 Mg/3 Ml Vial.Neb) 2.5 mg INHALE Q6H PRN PRN Reason: Shortness Of Breath Or Wheezing Amlodipine Besylate (Amlodipine Besylate 10 Mg Tablet) 10 mg PO DAILY [facility]; Protocol Last Admin: 12/19/24 08:20 Dose: 10 mg Atenolol (Atenolol 25 Mg Tablet) 25 mg PO DAILY [facility]; Protocol Last Admin: 12/19/24 08:20 Dose: 25 mg Calcium Carbonate (Calcium Carbonate 750 Mg Tab.Chew) 750 mg PO Q4H PRN PRN Reason: Heartburn Colchicine (Colchicine 0.6 Mg Tablet) 0.6 mg PO DAILY [facility] Last Admin: 12/19/24 08:20 Dose: 0.6 mg Enoxaparin Sodium (Enoxaparin Sodium 100 Mg/Ml Syringe) 90 mg SUBCUT Q12H [facility] Last Admin: 12/19/24 02:54 Dose: 90 mg Fluticasone/Vilanterol (Fluticasone/Vilanterol 100/25 Blst.W.Dev) 1 puff INHALE DAILY [facility] Last Admin: 12/19/24 08:30 Dose: 1 puff Hydromorphone HCl (Hydromorphone Hcl 0.5 Mg/0.5 Ml Syringe) 0.5 mg IVPUSH Q4H PRN; Protocol PRN Reason: Pain, Severe (Pain Scale 7-10) Magnesium Hydroxide (Milk Of Magnesia 30 Ml Oral.Susp) 30 ml PO DAILY PRN PRN Reason: Constipation Melatonin (Melatonin 3 Mg Tablet) 6 mg PO BEDTIME PRN PRN Reason: Insomnia Pantoprazole Sodium (Pantoprazole Sodium 40 Mg/10 Ml Vial) 40 mg IVPUSH DAILY@0630 [facility] Last Admin: 12/19/24 06:00 Dose: 40 mg Sodium Chloride (0.9 % Sodium Chloride Flush 3 Ml Syringe) 3 ml IVFLUSH QSHIFT [facility] Last Admin: 12/19/24 08:21 Dose: 3 ml Vitamin D (Cholecalciferol (Vitamin D3) 25 Mcg Tablet) 25 mcg PO DAILY [facility] Last Admin: 12/19/24 08:20 Dose: 25 mcg Home Medications ?Medication ?Instructions ?Recorded ?Confirmed ?Last Taken ?Type aspirin 81 mg tablet,delayed 81 mg PO DAILY 11/26/20 12/18/24 12/17/24 History release (Adult Low Dose Aspirin) atenolol 25 mg tablet 25 mg PO DAILY 11/26/20 12/18/24 12/17/24 History amlodipine 10 mg tablet 10 mg PO DAILY 11/16/22 12/18/24 12/17/24 History albuterol sulfate 90 mcg/actuation 2 puff inhalation Q4H PRN 12/10/22 12/18/24 Unknown History aerosol inhaler Shortness Of Breath Or Wheezing colchicine 0.6 mg tablet 0.6 mg PO DAILY 12/10/22 12/18/24 12/17/24 History fluticasone furoate 100 1 ea inhalation DAILY 12/10/22 12/18/24 12/17/24 History mcg-vilanterol 25 mcg/dose inhalation powder (Breo Ellipta) albuterol sulfate 2.5 mg/3 mL 2.5 mg inhalation Q6H PRN 12/18/24 12/18/24 Unknown History (0.083 %) solution for nebulization Shortness Of Breath Or Wheezing cholecalciferol (vitamin D3) 25 25 mcg PO DAILY 12/18/24 12/18/24 12/17/24 History mcg (1,000 unit) tablet (Vitamin D3) omeprazole 20 mg capsule,delayed 20 mg PO DAILY@0630 12/18/24 12/18/24 12/17/24 History release Physical Exam Vital Signs: Vital Signs: Last Vital Signs Temp 97.4 F 12/19/24 07:25 Pulse 70 12/19/24 08:31 Resp 16 12/19/24 08:31 BP 107/63 12/19/24 07:25 Pulse Ox 95 12/19/24 07:25 O2 Del Method Room Air 12/19/24 07:25 BMI result Body Mass Index 35.1 Const: General: comfortable and no acute distress Orientation/consciousness: patient oriented x3 HEENT: Other: Unremarkable Head: Yes normal to inspection Neck: Neck: Yes normal visual inspection Chest: Chest palpation & inspection: normal inspection of the chest Resp: Auscultation: clear to auscultation bilaterally Cardio: Palpation: normal PMI Heart sounds: S1 normal heart sound present, S2 normal heart sound present, no gallops, no murmurs and no rubs GI: Palpation (GI): Soft to palpation Back/Spine/Pelvis: Other: unremarkable Skin: General skin exam: no rashes or lesions noted Neuro: General: patient oriented x3 Extrem: General: Yes normal to inspection Psych: Mental Status: mental status grossly normal Objective Labs and Meds 12/19/24 05:21 12/19/24 05:21 Lab results: Laboratory Results - last 24 hr 12/18/24 12/18/24 12/18/24 12:30 13:13 18:55 WBC 5.5 RBC 4.54 L Hgb 11.8 L 12.1 L Hct 37.2 L 38.7 L MCV 81.9 MCH 26.0 L MCHC 31.7 RDW 17.3 H Plt Count 217 MPV 9.9 Immature Gran % (Auto) Neut % (Auto) Lymph % (Auto) [place] % (Auto) Eos % (Auto) Baso % (Auto) Lymph # (Auto) [place] # (Auto) Eos # (Auto) Baso # (Auto) Abs Immat Gran (auto) Absolute Neuts (auto) Absolute Nucleated RBC 0.000 Nucleated RBC % (auto) 0.0 PT 12.9 H INR 1.1 APTT 27.8 Fibrinogen 485 Cancelled D-Dimer High Sensitivty 1261 Cancelled Sodium Potassium Chloride Carbon Dioxide Anion Gap BUN Creatinine Estim Creat Clear Calc Estimated GFR Random Glucose Calcium Stool Occult Blood 12/19/24 12/19/24 05:21 08:26 WBC 5.3 RBC 4.93 Hgb 12.7 L Hct 40.8 L MCV 82.8 MCH 25.8 L MCHC 31.1 RDW 18.0 H Plt Count 256 MPV 10.0 Immature Gran % (Auto) 0.4 Neut % (Auto) 38.5 L Lymph % (Auto) 47.2 H [place] % (Auto) 10.9 Eos % (Auto) 2.4 Baso % (Auto) 0.6 Lymph # (Auto) 2.5 [place] # (Auto) 0.6 Eos # (Auto) 0.1 Baso # (Auto) 0.0 Abs Immat Gran (auto) 0.02 Absolute Neuts (auto) 2.1 Absolute Nucleated RBC 0.000 Nucleated RBC % (auto) 0.0 PT INR APTT Fibrinogen D-Dimer High Sensitivty Sodium 142 Potassium 4.2 Chloride 105 Carbon Dioxide 28 Anion Gap 13 BUN 19 H Creatinine 1.16 Estim Creat Clear Calc 46.0 Estimated GFR 60 Random Glucose 93 Calcium 9.0 Stool Occult Blood NEGATIVE ECG Interpretation: EKG with atrial fibrillation at a rate of 77/Min; nonspecific ST-T changes. Prior to this, EKG from 2013 and that shows sinus rhythm. 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 There is a 3 cm wedge-shaped area of hypoattenuation in the posterior lateral spleen. In the absence of trauma, this is most consistent with infarct. Splenic artery appeared grossly patent. Moderate severe degenerative changes are present in the lower lumbar spine. 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 There is moderate left and mild right hip osteophytes. There is a small [place] duodenal diverticulum in the descending portion of the duodenum. Fleischner guidelines were followed. Electronically signed by: Christophe Valenzuela MD 12/18/2024 10:39 AM EDT RP Assessment and Plan (1) Atrial fibrillation: Status: Acute (2) Splenic infarct: Status: Acute Plan EKG shows atrial fibrillation with controlled rate. A rhythm strip from last year shows sinus rhythm. Hence time of onset of atrial fibrillation not clear. That could be the etiology for clinic infarct. Home meds listed as atenolol 25 mg daily. May continue that. Anticoagulation, likely long-term Eliquis. We will check echocardiogram. Procedures Date of Service Date of Service: 12/19/24
--- NOTE | 2024-12-19 12:00 | CA_ITS ---
Transthoracic Echocardiogram Patient (Last, First, Middle): Daquan Quiros, Gender: Male Date of : 1935 Age: 89 Procedure Date: 12/19/2024 Procedure Type: Transthoracic Echocardiogram Location: S3E Height: 162.56 cm Weight: 92.53 kg BSA: 1.97 m2 Heart Rate: 79 bpm BP: 107 / 63 mmHg Traffic Investigator: SB/RC Referring MD: Roel Almodovar MD Symptoms: Atrial fibrillation Study Quality: Fair but adequate ECG Rhythm: Atrial Fibrillation Conclusions: - The left ventricular systolic function is low normal. The visually estimated ejection fraction is between 50-55%. - No obvious valvular pathology seen on this study. Findings Procedure Information The quality of the study was technically difficult. The study quality is limited by lung artifact. Left Ventricle Normal left ventricular cavity size. The left ventricular systolic function is low normal. The visually estimated ejection fraction is between 50-55%. There is no evidence of regional wall motion abnormalities. Diastolic function is indeterminate on the basis of available data. There is mild septal asymmetric hypertrophy. Right Ventricle Normal right ventricular cavity size. There is low normal right ventricular systolic function. Atria Both atria are normal in size. Aortic Valve There is a normal trileaflet aortic valve. There is no aortic valve stenosis. There is trace (trivial) aortic valve regurgitation. Mitral Valve The mitral valve appears normal. There is no mitral valve regurgitation. There is no mitral valve stenosis. Pulmonic Valve The pulmonic valve is likely normal. Tricuspid Valve There is mild tricuspid valve regurgitation. There is no evidence of pulmonary hypertension. Great Vessels The asc aorta is normal in size. Venous The inferior vena cava is normal in size and collapses greater than 50% with inspiration. Pericardium/Pleural There is no evidence of pericardial effusion. Prior Study Comparison No prior study available for comparison. Recommendations, Care & Conclusions No obvious valvular pathology seen on this study. Measurements 2D Linear Measurements IVSd: 1.27 0.6-0.9/0.6-1.0 cm LVIDd: 4.23 3.9-5.3/4.2-5.9 cm LVIDd Index: 2.15 2.4-3.2/2.2-3.1 cm/m2 LVIDs: 3.19 2.0-3.6 cm LVPWd: 0.73 0.7-1.1 cm LA Diam: 4.20 2.7-3.8/3.0-4.0 cm LAIDs Index: 2.13 1.5-2.3 cm/m2 LV Mass: 172.88 67-162/88-224 g LV Mass Index: 87.76 43-95/49-115 g/m2 LVOT Diam: 2.10 3.0+(-)1.3 cm 2D Systolic Function EF 4C: 55.50 >55% EF 2C: 51.10 >55% EF BiP: 51.90 >55% Aortic Valve AoV Pk Cody: 1.04 AoV Mn Cody: 0.78 AoV VTI: 0.23 AoV Pk Grad: 4.00 Aov Mn Grad: 3.00 ROSY Cont.VTI: 2.74 AI Pk Cody: 3.41 AI [place]: 1.92 LVOT LVOT Pk Cody: 0.80 LVOT Mn Cody: 0.53 LVOT VTI: 0.18 LVOT Pk Grad: 3.00 LVOT Mn Grad: 2.00 LVOT Diam: 2.10 LVOT Area: 3.46 Right Ventricle TAPSE (mm): 18.80 TVS' Cody: 10.00 Tricuspid Valve TR Pk Cody: 2.26 TR Pk Grad: 20.00 RA Press: 3.00 RVSP: 23.00 Great Vessels Aorta Sinus of Valsalva: 2.90 2.0-3.5 cm Ao Asc: 3.90 2.1-3.4 cm Pulmonary Valve PV Pk Cody: 0.63 Peak PV Grad: 2.00 Updated in Other Vendor System with Status of Final Roel Almodovar MD electronically signed on 12/19/2024 3:44:27 PM with status of Final
--- NOTE | 2024-12-19 12:04 | PM.HEMONCCN ---
Subjective - Subjective Chief complaint: Abdominal pain Patient: new to practice Consult date: 12/19/24 Primary Care Provider: Unknown Physician Substance Abuse Specialist Utilized?: No - Irish Speaking HPI - Consult Narrative Reason for consult: Splenic infarction Narrative: Daquan Valencia is a 89 year old male presented to ED with complaints of left upper quadrant pain that started a few days prior to admission. He says that pain was getting worse, exacerbated by cough and deep inspiration. He had no other complaints such as fever, chills, dizziness, palpitation or change in bowel habits. He says he has a tax assistant at an outside facility that he met a week ago. He denies any history of palpitations. Abdominal pelvis CT scan with and w/o IV contrast showed no evidence nephrolithiasis or hooded obstruction. It did showed suspected splenic infarct (3 cm) splenic artery appeared grossly patch. ECG showed atrial fibrillation with adequate rate control. Patient lives at home with his . He drove himself to the emergency department. He denies any prior history of use of anticoagulation or thromboembolism. No known family history. He quit smoking many years ago. He denies any trauma to his abdomen or fall history. Review of Systems - Constitutional Reports as per HPI - Neurologic Reports no additional neurologic complaints, Reports as per HPI Oncology Screenings - ECOG Performance Status ECOG Performance Status: 0 PMFSH Medical History: Medical History (Last Reviewed 12/18/24 @ 07:16 by Elba Douglass MD) Anemia Asthma Enlarged prostate Gout Hypertension Family History: Family History (Last Reviewed 12/18/24 @ 07:16 by Elba Douglass MD) Brother Colon cancer Surgical History: Surgical History (Last Reviewed 12/18/24 @ 07:16 by Elba Douglass MD) History of esophagogastroduodenoscopy (EGD) Hx of colonoscopy Hx of LASIK Social History: Social History (Last Reviewed 12/18/24 @ 07:16 by Elba Douglass MD) Living Situation History: Household Members: Spouse Housing: Apartment Are you a primary animal care attendant to a significant other at home: No Do you presently have visiting nurse or other home services: No Alcohol History Details: 1. How often do you have a drink containing alcohol?: d. 2-3 times a week 2. How many drinks containing alcohol do you have on a typical day when you are drinking?: a. 1 or 2 3. How often do you have six or more drinks on one occasion?: a. Never AUDIT-C Alcohol total score: 3 Tobacco History: Patient Tobacco Use Status: Former Tobacco user Smoked in Last 30 Days: No Domestic Abuse History: Have you been hit, kicked, punched, or otherwise hurt by someone within the past year? If so, by whom?: No Do you feel safe in your current relationship?: Yes Is there a partner from a previous relationship who is making you feel unsafe now?: No Are you made to feel afraid or neglected: No Advance Directives: Advance Directives: No Advance Directives Information Provided: Yes Homicidal Assessment: Do you have a plan to hurt others: No Plan Nutrition Assessment: Recently lost weight without trying: No How much weight loss: Not applicable Eating poorly because of decreased appetite: No Nutrition screen score: 0 Nutrition Risks: No Nutritional Risk Poor oral hygiene: No Home Medications and Allergies Current Medications: Current Medications Acetaminophen (Acetaminophen 325 Mg Tablet) 975 mg PO Q6H PRN PRN Reason: Pain, Mild 1-3,fever,headache Albuterol Sulfate (Albuterol Sulfate (0.083%) 2.5 Mg/3 Ml Vial.Neb) 2.5 mg INHALE Q6H PRN PRN Reason: Shortness Of Breath Or Wheezing Amlodipine Besylate (Amlodipine Besylate 10 Mg Tablet) 10 mg PO DAILY [facility]; Protocol Last Admin: 12/19/24 08:20 Dose: 10 mg Atenolol (Atenolol 25 Mg Tablet) 25 mg PO DAILY [facility]; Protocol Last Admin: 12/19/24 08:20 Dose: 25 mg Calcium Carbonate (Calcium Carbonate 750 Mg Tab.Chew) 750 mg PO Q4H PRN PRN Reason: Heartburn Colchicine (Colchicine 0.6 Mg Tablet) 0.6 mg PO DAILY [facility] Last Admin: 12/19/24 08:20 Dose: 0.6 mg Enoxaparin Sodium (Enoxaparin Sodium 100 Mg/Ml Syringe) 90 mg SUBCUT Q12H [facility] Last Admin: 12/19/24 02:54 Dose: 90 mg Fluticasone/Vilanterol (Fluticasone/Vilanterol 100/25 Blst.W.Dev) 1 puff INHALE DAILY [facility] Last Admin: 12/19/24 08:30 Dose: 1 puff Hydromorphone HCl (Hydromorphone Hcl 0.5 Mg/0.5 Ml Syringe) 0.5 mg IVPUSH Q4H PRN; Protocol PRN Reason: Pain, Severe (Pain Scale 7-10) Magnesium Hydroxide (Milk Of Magnesia 30 Ml Oral.Susp) 30 ml PO DAILY PRN PRN Reason: Constipation Melatonin (Melatonin 3 Mg Tablet) 6 mg PO BEDTIME PRN PRN Reason: Insomnia Pantoprazole Sodium (Pantoprazole Sodium 40 Mg/10 Ml Vial) 40 mg IVPUSH DAILY@629 [facility] Last Admin: 12/19/24 06:00 Dose: 40 mg Sodium Chloride (0.9 % Sodium Chloride Flush 3 Ml Syringe) [facility] Last Admin: 12/19/24 08:21 Dose: 3 ml Vitamin D (Cholecalciferol (Vitamin D3) 25 Mcg Tablet) 25 mcg PO DAILY [facility] Last Admin: 12/19/24 08:20 Dose: 25 mcg Home Medications ?Medication ?Instructions ?Recorded ?Confirmed ?Type aspirin 81 mg tablet,delayed 81 mg PO DAILY 11/26/20 12/18/24 History release (Adult Low Dose Aspirin) atenolol 25 mg tablet 25 mg PO DAILY 11/26/20 12/18/24 History amlodipine 10 mg tablet 10 mg PO DAILY 11/16/22 12/18/24 History albuterol sulfate 90 mcg/actuation 2 puff inhalation Q4H PRN 12/10/22 12/18/24 History aerosol inhaler Shortness Of Breath Or Wheezing colchicine 0.6 mg tablet 0.6 mg PO DAILY 12/10/22 12/18/24 History fluticasone furoate 100 1 ea inhalation DAILY 12/10/22 12/18/24 History mcg-vilanterol 25 mcg/dose inhalation powder (Breo Ellipta) albuterol sulfate 2.5 mg/3 mL 2.5 mg inhalation Q6H PRN 12/18/24 12/18/24 History (0.083 %) solution for nebulization Shortness Of Breath Or Wheezing cholecalciferol (vitamin D3) 25 25 mcg PO DAILY 12/18/24 12/18/24 History mcg (1,000 unit) tablet (Vitamin D3) omeprazole 20 mg capsule,delayed 20 mg PO DAILY@30 12/18/24 12/18/24 History release Allergies Allergy/AdvReac Type Severity Reaction Status Date / Time No Known Allergies Allergy Verified 12/18/24 06:46 Physical Exam Vital signs: Vital Signs Temp 97.4 F 12/19/24 07:25 Pulse 70 12/19/24 08:31 Resp 16 12/19/24 08:31 BP 107/63 12/19/24 07:25 Pulse Ox 95 12/19/24 07:25 O2 Del Method Room Air 12/19/24 07:25 Intake & Output 12/18/24 12/19/24 12/19/24 18:59 06:59 18:59 Intake Total 1560 / 1560 Output Total 350 / 350 Balance 1210 / 1210 Urine Output (Average ml/kg/hr) 0.31 Intake: Intake, Oral Amount 1560 / 1560 Output: Output, Urine Amount 350 / 350 Other: Dinner % Eaten 100% 100% Eating (Feeding) Ability Independent Number of Unmeasured Voids 2 Number of Bowel Movements 0 Urine Bathroom Urine Color Yellow Last Bowel Movement 12/18/24 12/18/24 Weight 92.8 kg Weight 92.8 kg Narrative: Appears fit and well, much younger than stated age - Constitutional Present: no acute distress, obese - Routine HEENT Exam Head: Present: normal inspection Eye: Present: EOMI, PERRL - Routine Neck Exam Present: supple. Absent: lymphadenopathy - Routine Respiratory Exam Present: CTAB. Absent: accessory muscle use, wheezes - Routine Cardiovascular Exam Cardiovascular: Present: S1 - Routine Abdominal Exam Absent: organomegaly - Routine Extremities Exam Absent: calf tenderness - Routine Skin Exam Present: intact - Routine Neurological Exam Present: alert, oriented X3 Hem/Onc Consult Result - Labs CBC & Chem 7: 12/19/24 05:21 12/19/24 05:21 Labs: Short CBC 12/18/24 12/18/24 12/19/24 Range/Units 12:30 18:55 05:21 WBC 5.5 5.3 (4.8-10.8) X10*3/uL Hgb 11.8 L 12.1 L 12.7 L (14.0-18.0) g/dl Hct 37.2 L 38.7 L 40.8 L (42.0-52.0) % Plt Count 217 256 (160-400) X10*3/uL BMP 12/19/24 05:21 Sodium 142 Potassium 4.2 Chloride 105 Carbon Dioxide 28 BUN 19 H Creatinine 1.16 Calcium 9.0 Assessment and Plan Patient Active problem list reviewed?: Yes (1) Splenic infarct Status: Acute Assessment and plan: 1. This is a 89-year-old male who has generally been in good health presented with left upper quadrant pain and found to have splenic infarction. He was also discovered to be in atrial fibrillation. Most common cause of splenic infarction is atrial fibrillation. Atrial fibrillation however does not usually cause splenic infarction. He has been started on Lovenox 1 milligram/kilos b.i.d.. His pain has resolved completely. He can be switched to Eliquis upon discharge. 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 Echocardiogram and cardiac workup as per Cardiology. He would need long-term anticoagulation as long as he has no signs of bleeding. Given his age, he should be monitored closely with blood work. Thank you for the consultation. - Time Spent With Patient Time Spent with Patient (in minutes): 20
[2024-12-19 13:00] LABS: INTERNATIONAL NORM RATIO 1.1 (0.9-1.1); Prothrombin Time 13.0 SEC (10.9-12.4)
--- NOTE | 2024-12-19 13:05 | P.PNIM_ITS ---
Subjective Subjective Date of Service: 12/19/24 Interval History: f/u splenic infarct asx, no abd pain, chest pain, SOB, or palpitations no hx of GI bleed, no rectal bleeding, hematuria, or melena Review of Systems Review of Systems: Yes all other systems are reviewed and are negative Physical Exam 2 Exam: Exam: General: AOx3, no acute distress, seen with management planner Resp: CTA bilaterally CVS: S1, S2, RRR GI: +BS, NT, no distention Skin: Warm, dry Neuro: Cranial nerves II-XII grossly intact bilaterally. Motor grossly intact bilaterally Extremities: No LE edema Psych: Appropriate affect Vital Signs: Vital Signs: Last Vital Signs Temp 97.4 F 12/19/24 07:25 Pulse 70 12/19/24 08:31 Resp 16 12/19/24 08:31 BP 107/63 12/19/24 07:25 Pulse Ox 95 12/19/24 07:25 O2 Del Method Room Air 12/19/24 07:25 BMI result Body Mass Index 35.1 Objective Data Active Medications Acetaminophen (Acetaminophen 325 Mg Tablet) 975 mg PO Q6H PRN PRN Reason: Pain, Mild 1-3,fever,headache Albuterol Sulfate (Albuterol Sulfate (0.083%) 2.5 Mg/3 Ml Vial.Neb) 2.5 mg INHALE Q6H PRN PRN Reason: Shortness Of Breath Or Wheezing Amlodipine Besylate (Amlodipine Besylate 10 Mg Tablet) 10 mg PO DAILY [facility]; Protocol Last Admin: 12/19/24 08:20 Dose: 10 mg Documented By: MALCOM Atenolol (Atenolol 25 Mg Tablet) 25 mg PO DAILY [facility]; Protocol Last Admin: 12/19/24 08:20 Dose: 25 mg Documented By: MALCOM Calcium Carbonate (Calcium Carbonate 750 Mg Tab.Chew) 750 mg PO Q4H PRN PRN Reason: Heartburn Colchicine (Colchicine 0.6 Mg Tablet) 0.6 mg PO DAILY [facility] Last Admin: 12/19/24 08:20 Dose: 0.6 mg Documented By: MALCOM Enoxaparin Sodium (Enoxaparin Sodium 100 Mg/Ml Syringe) 90 mg SUBCUT Q12H [facility] Last Admin: 12/19/24 02:54 Dose: 90 mg Documented By: JAVIER Fluticasone/Vilanterol (Fluticasone/Vilanterol 100/25 Blst.W.Dev) 1 puff INHALE DAILY [facility] Last Admin: 12/19/24 08:30 Dose: 1 puff Documented By: STUARTLMike Hydromorphone HCl (Hydromorphone Hcl 0.5 Mg/0.5 Ml Syringe) 0.5 mg IVPUSH Q4H PRN; Protocol PRN Reason: Pain, Severe (Pain Scale 7-10) Magnesium Hydroxide (Milk Of Magnesia 30 Ml Oral.Susp) 30 ml PO DAILY PRN PRN Reason: Constipation Melatonin (Melatonin 3 Mg Tablet) 6 mg PO BEDTIME PRN PRN Reason: Insomnia Pantoprazole Sodium (Pantoprazole Sodium 40 Mg/10 Ml Vial) 40 mg IVPUSH DAILY@0630 [facility] Last Admin: 12/19/24 06:00 Dose: 40 mg Documented By: JAVIER Sodium Chloride (0.9 % Sodium Chloride Flush 3 Ml Syringe) 3 ml IVFLUSH QSHIFT [facility] Last Admin: 12/19/24 08:21 Dose: 3 ml Documented By: MALCOM Vitamin D (Cholecalciferol (Vitamin D3) 25 Mcg Tablet) 25 mcg PO DAILY [facility] Last Admin: 12/19/24 08:20 Dose: 25 mcg Documented By: MALCOM Labs 12/19/24 05:21 12/19/24 05:21 Labs: Laboratory Results - last 24 hr 12/18/24 12/18/24 12/19/24 12:30 13:13 05:21 MCV 82.8 MCH 25.8 L MCHC 31.1 RDW 18.0 H Plt Count 256 MPV 10.0 Immature Gran % (Auto) 0.4 Neut % (Auto) 38.5 L Lymph % (Auto) 47.2 H Cab[place] % (Auto) 10.9 Eos % (Auto) 2.4 Baso % (Auto) 0.6 Lymph # (Auto) 2.5 [place] # (Auto) 0.6 Eos # (Auto) 0.1 Baso # (Auto) 0.0 Abs Immat Gran (auto) 0.02 Absolute Neuts (auto) 2.1 Absolute Nucleated RBC 0.000 Nucleated RBC % (auto) 0.0 PT INR Fibrinogen 485 Cancelled D-Dimer High Sensitivty 1261 Cancelled Anion Gap 13 Estim Creat Clear Calc 46.0 Estimated GFR 60 Random Glucose 93 Calcium 9.0 Stool Occult Blood 12/19/24 12/19/24 08:26 12:30 MCV MCH MCHC RDW Plt Count MPV Immature Gran % (Auto) Neut % (Auto) Lymph % (Auto) Cab[place] % (Auto) Eos % (Auto) Baso % (Auto) Lymph # (Auto) [place] # (Auto) Eos # (Auto) Baso # (Auto) Abs Immat Gran (auto) Absolute Neuts (auto) Absolute Nucleated RBC Nucleated RBC % (auto) PT 13.0 H INR 1.1 Fibrinogen D-Dimer High Sensitivty Anion Gap Estim Creat Clear Calc Estimated GFR Random Glucose Calcium Stool Occult Blood NEGATIVE Assessment and Plan (1) Splenic infarct: Status: Acute (2) New onset a-fib: Status: Acute Plan Patient is an 89-year-old Indonesian-speaking male admitted for splenic infarct, new onset AFib Left flank pain secondary to suspected splenic infarct due to atrial fibrillation, chronicity unknown - Observation/med-surg under hospitalist service. - D-dimer, fibrinogen, factor V laden, beta 2 glycoprotein antibody, antithrombin 3 antigen, homocystine, JAK2 mutation,, lupus anticoagulant, protein C and S Ag, prothrombin [id number] pending - Lovenox 90 mg SQ bid. Hold ASA for now. - Continue atenolol. - Dilaudid and acetaminophen p.r.n. for pain. - echo pending - Hematology consult pending - Surgery consult - no surgical intervetions needed - cardiology consult- a fib likely source of splenic infarct, echo, continue atenolol, likely [facility] eliquis Chronic anemia. - H+H stable - FOBT negative Essential hypertension. - Continue atenolol, amlodipine. GERD. - PPI Gout. - Continue colchicine. DVT prophylaxis: Lovenox Code status: Full continued need for hospitalization: cardiac w/u, echo pending Quality Stroke Does the patient have a stroke diagnosis?: No VTE Prior VTE?: No VTE Risk Level:: Medical - moderate - high VTE Device Contraindication: Treatment Not Indicated VTE Drug Contraindication: N/A - Med Ordered
[2024-12-19 15:36] VITALS: BP 116/65; PULSE 67; RESP 18; TEMP 36.5; O2SAT 95
--- NOTE | 2024-12-19 16:20 | MHC.CM.PN ---
Attempted CM assessment x2. Patient sleeping. Will reattempt tomorrow.
[2024-12-19 18:58] VITALS: BP 120/67; PULSE 70; RESP 18; TEMP 36.2; O2SAT 97
[2024-12-20 03:23] VITALS: BP 113/64; PULSE 61; RESP 16; TEMP 36; O2SAT 95
[2024-12-20 07:25] LABS: Hematocrit 37.7 % (42.0-52.0); Hemoglobin 11.7 g/dl (14.0-18.0); Mean Corpuscular HGB Conc 31.0 g/dl (31.0-36.0); Mean Corpuscular Hemoglobin 25.5 pg (27.0-33.0); Mean Corpuscular Volume 82.3 fL (80.0-98.0); NRBC Abs Auto 0.000 X10*3/uL (0.0-0.012); NRBC Pct Auto 0.0 /100WBC (0.0-0.2); Platelet Count 225 X10*3/uL (160-400); Red Blood Count 4.58 X10*6/uL (4.60-5.80); White Blood Count 4.4 X10*3/uL (4.8-10.8)
[2024-12-20] MEDS: 0.9 % Sodium Chloride Flush 3 ML SYRINGE IVFLUSH (07:32)
[2024-12-20 07:35] LABS: INTERNATIONAL NORM RATIO 1.1 (0.9-1.1); Prothrombin Time 12.8 SEC (10.9-12.4)
[2024-12-20 07:39] LABS: Anion Gap 11 (12-20); Blood Urea Nitrogen 18 mg/dL (9-16); Calcium 8.6 mg/dL (8.4-10.2); Carbon Dioxide 29 mmol/L (22-29); Chloride 106 mmol/L (96-108); Creatinine Clr Calc Pharmacy 47.3; Estimated Glomerular Filt Rate > 60; Potassium 4.2 mmol/L (3.3-5.1); Sodium 142 mmol/L (135-145)
[2024-12-20 07:41] VITALS: BP 113/61; PULSE 68; RESP 16; TEMP 36.1; O2SAT 95
[2024-12-20 07:50] VITALS: PULSE 68; RESP 16; O2SAT 95
[2024-12-20] MEDS: Fluticasone/Vilanterol 100/25 BLST.W.DEV 1 PUFF INHALE (07:50)
--- NOTE | 2024-12-20 09:56 | P.PNCA_ITS ---
Subjective Subjective Date of Service: 12/20/24 Interval history: He states he feels well. No new concerns. Review of Systems Review of Systems Yes all other systems are reviewed and are negative Constitutional: Reports as per HPI and Reports no additional constitutional complaints Eyes: Reports as per HPI and Denies no additional eye complaints Denies system reviewed and no additional complaints, except as documented and Reports as per HPI Cardiovascular: Reports as per HPI, Reports no additional cardiovascular complaints, Denies acrocyanosis, Denies cool extremities, Denies chest pain, Denies leg edema, Denies lightheadedness, Denies palpitations and Denies dyspnea Respiratory: Reports as per HPI, Denies no additional respiratory complaints and Denies dyspnea Gastrointestinal: Reports as per HPI and Denies no additional gastrointestinal complaints Genitourinary: Reports no additional male genitourinary complaints and Reports as per HPI Musculoskeletal: Reports no additional musculoskeletal complaints and Reports as per HPI Skin/Breast: Reports system reviewed and no additional complaints, except as docu Reports system reviewed and no additional complaints, except as documented and Reports as per HPI Psychiatric: Reports no additional psychiatric complaints and Reports as per HPI Endocrine: Reports no additional endocrine complaints, Reports as per HPI and Denies palpitations Hematologic/Lymphatic: Reports no additional hematologic/lymphatic complaints and Reports as per HPI Allergic/Immunologic: Reports no additional allergic/immunologic complaints and Reports as per HPI Physical Exam Vital Signs: Last Vital Signs Temp 97.0 F 12/20/24 07:41 Pulse 68 12/20/24 07:50 Resp 16 12/20/24 07:50 BP 113/61 12/20/24 07:41 Pulse Ox 95 12/20/24 07:41 O2 Del Method Room Air 12/20/24 07:41 BMI result Body Mass Index 35.1 Const General: comfortable and no acute distress Orientation/consciousness: patient oriented x3 HEENT Other: Unremarkable Head: Yes normal to inspection Neck Neck: Yes normal visual inspection Chest Chest palpation & inspection: normal inspection of the chest Resp Auscultation: clear to auscultation bilaterally Cardio Palpation: normal PMI Heart sounds: S1 normal heart sound present, S2 normal heart sound present, no gallops, no murmurs and no rubs GI Palpation (GI): Soft to palpation Back/Spine/Pelvis Other: unremarkable Skin General skin exam: no rashes or lesions noted Neuro General: patient oriented x3 Extrem General: Yes normal to inspection Psych Mental Status: mental status grossly normal Objective Labs and Meds 12/20/24 06:37 12/20/24 06:37 Lab results: Laboratory Results - last 24 hr 12/18/24 12/19/24 12/20/24 13:12 12:30 06:37 WBC 4.4 L RBC 4.58 L Hgb 11.7 L Hct 37.7 L MCV 82.3 MCH 25.5 L MCHC 31.0 RDW 17.2 H Plt Count 225 MPV 10.1 Absolute Nucleated RBC 0.000 Nucleated RBC % (auto) 0.0 PT 13.0 H 12.8 H INR 1.1 1.1 Sodium 142 Potassium 4.2 Chloride 106 Carbon Dioxide 29 Anion Gap 11 L BUN 18 H Creatinine 1.13 Estim Creat Clear Calc 47.3 Estimated GFR > 60 Random Glucose 92 Calcium 8.6 Homocysteine 14.5 Progress Note: A&P Assessment and plan (1) Atrial fibrillation: Status: Acute (2) Splenic infarct: Status: Acute Plan EKG shows atrial fibrillation with controlled rate. A rhythm strip from last year shows sinus rhythm. Echocardiogram with LVEF of 50-55%. Overall, time of onset of atrial fibrillation not clear. Home meds listed as atenolol 25 mg daily and he continue that. Anticoagulation with Eliquis. He states he already has a c s s representative and could follow up with them. Time Spent With Patient Time: Total time managing care of this patient today ____ minutes. Progress Note: Quality Stroke Does the patient have a stroke diagnosis?: No Procedures Date of Service Date of Service: 12/20/24
--- NOTE | 2024-12-20 13:15 | P.DS_ITS ---
DS: Providers Provider Date of Service: 12/20/24 Date of admission: 12/19/24 15:30 Date of discharge: 12/20/24 Primary care physician: Unknown Physician Consults: 12/18/24 12:41 Consult to Hematology / Oncology Routine Consulting Provider: [facility] Oncology/Hematology Reason for consultation: Splenic infarct Has provider been notified: Yes 12/18/24 13:36 Consult to Cardiology Routine Consulting Provider: [facility] Reason for consultation: New onset a-fib, splenic infarct Has provider been notified: No 12/19/24 07:37 Consult to Cardiology Routine Consulting Provider: Roel Almodovar Reason for consultation: new onset a fib DS: Diagnosis Discharge Diagnosis (1) Atrial fibrillation: Status: Acute (2) Splenic infarct: Status: Acute DS: Summary Hospital Course Hospital Course: 89 years old man with past medical history significant for essential hypertension, GERD, gout and asthma presents to the emergency department complaining of left anterior flank pain that started last . He describes the pain as sharp, constant, intensity 10/10 and radiating to the chest. Pain increases with deep inspiration, cough or yawning. She denied any fever, cough, palpitations, diarrhea, dizziness, shortness on breath, nausea, vomiting, pain with urination or bloody urine. He did not report black stools. He denied personal or family history of clots or cancer. He take aspirin daily. He is a former tobacco smoker -quit in 1972. Denied history of alcohol abuse or illicit drug use. In the ED, he was found to have stable vital signs. Blood workup showed no leukocytosis. Hemoglobin dropped from 12.6 to 11.8. INR is 1.1 PT 12.9 and PTT 27.8 P. There are no electrolyte imbalances. BUN is 16 creatinine 1.24. Total bilirubin is 1.3, AST 40, ALT 30 and Alk-phos 97. Urinalysis showed no UTI. Abdominal pelvis CT scan with and w/o IV contrast showed no evidence nephrolithiasis or hooded obstruction. It did showed suspected splenic infarct (3 cm) splenic artery appeared grossly patch. ECG showed atrial fibrillation with adequate rate control. Hospital Course Patient admitted to general medical floor and seen in consultation by both Hematology and Cardiology. Hematology recommended long-term anticoagulation with Eliquis; cardiology reviewed records in AFib was new in onset thereby thought to be the cause of the splenic infarct. At this point in time patient will be switched over to Eliquis and will follow up with Oncology and Cardiology as an outpatient. He is medically acceptable for discharge to follow up with his PCP next available Time Attestation Discharge Coordination Time (in mins): 35 Quality: Safe Use of Opioids Does Pt have an Active Cancer Diagnosis on the Problem List?: No Quality: Stroke Does the patient have a stroke diagnosis?: No Physical Exam Vital Signs: Vital Signs: Last Vital Signs Temp 97.0 F 12/20/24 07:41 Pulse 68 12/20/24 07:50 Resp 16 12/20/24 07:50 BP 113/61 12/20/24 07:41 Pulse Ox 95 12/20/24 07:41 O2 Del Method Room Air 12/20/24 07:41 BMI result Body Mass Index 35.1 Const: Other: Awake alert no acute distress Resp: Other: Clear to auscultation bilaterally no rales rhonchi or wheezes Cardio: Other: No S4; positive S1-S2; no S3 murmurs rubs or gallops GI: Other: Soft nontender nondistended normoactive bowel sounds Extrem: Other: No edema bilaterally DS: Data Data Completed and Pending Labs on day of discharge: Laboratory Results - last 24 hr 12/18/24 12/20/24 13:12 06:37 WBC 4.4 L RBC 4.58 L Hgb 11.7 L Hct 37.7 L MCV 82.3 MCH 25.5 L MCHC 31.0 RDW 17.2 H Plt Count 225 MPV 10.1 Absolute Nucleated RBC 0.000 Nucleated RBC % (auto) 0.0 PT 12.8 H INR 1.1 Sodium 142 Potassium 4.2 Chloride 106 Carbon Dioxide 29 Anion Gap 11 L BUN 18 H Creatinine 1.13 Estim Creat Clear Calc 47.3 Estimated GFR > 60 Random Glucose 92 Calcium 8.6 Homocysteine 14.5 Discharge Plan Discharge Anticipated Discharge Date/Time: 12/20/24 13:10 Patient Disposition: Home, Self-Care Discharge Diagnosis: Splenic Infarct Referrals: Physician,Unknown J [Primary Care Provider, Medical] - 1 Week Discharge Medications: New Eliquis 5 mg tablet 5 mg PO BID Qty: 60 3RF Continued fluticasone furoate-vilanterol [Breo Ellipta] 100-25 mcg/dose blister with device 1 ea INHALATION DAILY colchicine 0.6 mg Tablet 0.6 mg PO DAILY albuterol sulfate 90 mcg/actuation Hfa Aerosol Inhaler 2 puff INHALATION Q4H PRN (Reason: Shortness Of Breath Or Wheezing) omeprazole 20 mg capsule,delayed release(DR/EC) 20 mg PO DAILY@0630 albuterol sulfate 2.5 mg /3 mL (0.083 %) solution for nebulization 2.5 mg inhalation Q6H PRN (Reason: Shortness Of Breath Or Wheezing) cholecalciferol (vitamin D3) [Vitamin D3] 25 mcg (1,000 unit) Tablet 25 mcg PO DAILY atenolol 25 mg tablet 25 mg PO DAILY aspirin [Adult Low Dose Aspirin] 81 mg tablet,delayed release (DR/EC) 81 mg PO DAILY amlodipine 10 mg tablet 10 mg PO DAILY Discharge Orders: Discharge Order (Routine); Ordered 12/20/24 Ordered By: Jersey Brock Diet: Advance to usual diet Activity on Discharge: As tolerated Stand Alone Forms: Patient Portal Discharge page Print Language: Kiswahili Care Plan Goals: Continue all medicines as taken previously to hospital Health Concerns: Eliquis 5 mg twice daily has been added to your regimen. Take your 1st dose this evening then twice daily Plan of Treatment: Follow up with Cardiology and PCP as scheduled Assessment: See discharge summary Patient Instructions: Splenic Infarction (ED)
--- NOTE | 2024-12-20 14:17 | MHC.CM.PN ---
CM assessment completed w/ automatic fabric cutter assistance. Patient primarily communicating in Chadian, but court usher providing clarification at times. Lives in an apartment w/ his . Functionally independent. Denies use of DME or services. PCP Hoang Pro MD No HCP. CM provided education and offered assistance. Patient declined. IMM delivered. DP: Medically cleared for dc home self care. Niece to transport. RN aware.
[2024-12-22 03:58] LABS: Protein S Activity rflx Tot&Fr 105 % normal (70-150)
[2024-12-25 14:57] LABS: Prothrombin 20210A NEGATIVE
== END 2024-12-20 15:00 | disposition home or self-care (01) | DRG 816 ==
LOC: HO.ED 12:17 → HO.EDOVER 13:48 → HO.S3 15:16
PROVIDERS: Physician Assistant; Admitting Provider Internal Medicine; Emergency Provider Emergency Medicine Emergency Medical Services; PCP Internal Medicine; Visit Provider Hospitalist
DX: D73.5 Infarction of spleen (principal); I48.91 Unspecified atrial fibrillation; D64.9 Anemia, unspecified; I10 Essential (primary) hypertension; J45.909 Unspecified asthma, uncomplicated; K21.9 Gastro-esophageal reflux disease without esophagitis; M10.9 Gout, unspecified; Z79.82 Long term (current) use of aspirin; Z79.51 Long term (current) use of inhaled steroids; Z79.899 Other long term (current) drug therapy
CPT/HCPCS: 36415; 74176; 74177; 80048; 80053; 81001; 81240; 81241; 82272; 83090; 83690; 85014; 85018; 85025; 85027; 85301; 85302; 85303; 85306; 85379; 85384; 85597; 85598; 85610; 85613; 85730; 86146; 86147; 93005; 93306; 94640; 99285; J1650; J1885; J2405; J2470; Q9957; Q9967

== ENCOUNTER → 2024-12-18 07:13 | Outpatient (BNV) | payer OTHER, SELFPAY | PROVIDERS: Emergency Provider Emergency Medicine Emergency Medical Services; Visit Provider Radiology Diagnostic Radiology | DX: D73.89 Other diseases of spleen (principal); R10.12 Left upper quadrant pain | CPT/HCPCS: 74176; 74177 ==

== ENCOUNTER → 2024-12-18 07:57 | Outpatient (BNV) | payer OTHER, SELFPAY | PROVIDERS: Emergency Provider Emergency Medicine Emergency Medical Services; Visit Provider Internal Medicine | DX: D73.5 Infarction of spleen (principal); D64.9 Anemia, unspecified; I48.91 Unspecified atrial fibrillation | CPT/HCPCS: 99223; 99232; 99239 ==

== ENCOUNTER 2024-12-18 12:34 | Outpatient (BNV) | payer OTHER, SELFPAY | END 2024-12-18 13:23 | PROVIDERS: Admitting Provider Internal Medicine; Emergency Provider Emergency Medicine Emergency Medical Services; Visit Provider Internal Medicine | DX: I48.91 Unspecified atrial fibrillation (principal) | CPT/HCPCS: 93010 ==

== ENCOUNTER → 2024-12-18 12:34 | Outpatient (BNV) | payer OTHER, SELFPAY | PROVIDERS: Admitting Provider Internal Medicine; Emergency Provider Emergency Medicine Emergency Medical Services; Visit Provider Internal Medicine | DX: D73.5 Infarction of spleen (principal) | CPT/HCPCS: 99222 ==

== ENCOUNTER → 2024-12-18 12:34 | Outpatient (BNV) | payer OTHER, SELFPAY | PROVIDERS: Admitting Provider Internal Medicine; Emergency Provider Emergency Medicine Emergency Medical Services; Visit Provider Internal Medicine | DX: I48.91 Unspecified atrial fibrillation (principal); D73.5 Infarction of spleen | CPT/HCPCS: 99232 ==

== ENCOUNTER → 2024-12-18 12:34 | Outpatient (BNV) | payer OTHER, SELFPAY | PROVIDERS: Admitting Provider Internal Medicine; Emergency Provider Emergency Medicine Emergency Medical Services | DX: D73.5 Infarction of spleen (principal) | CPT/HCPCS: 99283 ==

== ENCOUNTER → 2024-12-19 12:00 | Outpatient (BNV) | payer OTHER, SELFPAY | PROVIDERS: Admitting Provider Internal Medicine; Emergency Provider Emergency Medicine Emergency Medical Services; Visit Provider Internal Medicine | DX: I42.2 Other hypertrophic cardiomyopathy (principal); I48.91 Unspecified atrial fibrillation | CPT/HCPCS: 93306 ==

== ENCOUNTER 2025-01-09 06:02 | Outpatient (REF) | payer OTHER, SELFPAY ==
--- OUTSIDE RECORDS SUMMARY | 2025-01-09 06:06 | XMS_ITS | Encounter Summary ---
Author Organization [employer] Address [address] [facility] [address] [place] [address] Care Team Providers Care Patient Registration Specialist Name Role Phone Hoang Yusuf MD Primary Care Provide r Reason for Visit * Reason Comments Med Refill Encounter Details Date Type Department Care Team ([facility] st Contact Info) Description 08/03/2024 Refill [facility] [address] [place], [place] [phone] Hoang Yusuf MD [address] [place], [place] [phone] Chronic obstructive pulmonary disease, unspecified COPD type [...] Description 01/11/2025 10:00 AM EDT Office Visit [facility] [address] [place] [address] Hoang Yusuf MD [address] [place] [phone] documented as of this encounter Visit Diagnoses Diagnosis Chronic obstructive pulmonary disease, unspecified COPD type (CMS/HCC) documented in this encounter Additional Health Concerns Assessment Noted Time PHQ-9 Depression Total Score: 0 01/13/20 24 9:08 AM EDT documented as of this encounter Care Teams Patient Registration Specialist Relationship Specialty Start Date End Date Hoang Yusuf MD [address] [place] [id number] PCP - General Internal Medicine 02/02/14 documented as of this encounter
--- OUTSIDE RECORDS SUMMARY | 2025-01-09 06:06 | XMS_ITS | Encounter Summary ---
Author Organization [employer] Address [address] [facility] [address] [place] [address] Care Team Providers Care Vacuum Evaporation Operator Name Role Phone Hoang Yusuf MD Primary Care Provide r Encounter Details Date Type Department Care Team ([facility] st Contact Info) Description 06/02/2023 Orders Only [facility] [address] [place] [address] Simran Mak LPN Social History Tobacco Use Types Packs/Day Years Used Date Smoking Tobacco: Former Cigarettes Passive Smoke Exposure: Past Smokeless Tobacco: Never Depression Answer Date Recorded Patient Health Questionnaire-9 Score 0 08/06/2022 Housing Stability Answer Date Recorded What is your housing situation today? I have mononatalie gtz 03/16/[address] you [...] Description 01/11/2025 10:00 AM EDT Office Visit [facility] [address] [place] [address] Hoang Yusuf MD [address] [place] [address] documented as of this encounter Visit Diagnoses Not on filedocumented in this encounter Additional Health Concerns Assessment Noted Time PHQ-9 Depression Total Score: 0 08/07/19 23 11:34 AM EDT documented as of this encounter Care Teams Vacuum Evaporation Operator Relationship Specialty Start Date End Date Hoang Yusuf MD [address] [place] [id number] PCP - General Internal Medicine 02/02/14 documented as of this encounter
--- OUTSIDE RECORDS SUMMARY | 2025-01-09 06:06 | XMS_ITS | Clinical Summary ---
Author Organization [employer] Address [address] [facility] 7t [place] [address] Care Team Providers Care Remote Computer Terminal Operator Name Role Phone Hoang Yusuf MD Primary Care Provide r Allergies Active Allergy Reactions Criticality Noted Date Comments Lisinopril Cough 02/09/2017 Medications cetirizine (ZyrTEC) 10 MG tabletIndicatio ns:Seasonal allergies Take 1 tablet (10 mg) by mouth in the morning. 30 tablet 2 03/16/20 23 Active albuterol (2.5 MG/3ML) 0.083% nebulizer solution INHALE 1 VIAL VIA NEBULIZATION EVERY 4-6 HOURS NEEDED FOR COUGH, WHEEZING OR SHORTNESS OF BREATH 180 mL 1 03/18/20 23 Active Aspirin Low Dose 81 MG EC tabletIndicatio ns:Preventative health care TAKE 1 TABLET BY MOUTH DAILY IN THE MORNING 90 tablet 3 09/08/19 25 Active cholecalciferol (Vitamin D-3) 25 MCG (1000 UT) capsuleIndicati ons:Low vitamin D level Take 1 capsule (25 mcg) by mouth Once per day. 60 capsule 6 10/04/19 25 Active Breo Ellipta 100-25 MCG/ACT aerosol powderIndicatio ns:Chronic obstructive pulmonary disease, unspecified COPD type (CMS/HCC) INHALE 1 PUFF BY MOUTH EVERY MORNING 60 each 2 11/15/19 25 Active atenolol (Tenormin) 25 MG tablet TAKE 1 TABLET BY MOUTH EVERY DAY 90 tablet 1 11/17/19 25 Active amLODIPine (Norvasc) 10 MG tabletIndicatio ns:Primary hypertension TAKE 1 TABLET(10 MG) BY MOUTH IN THE MORNING 90 tablet 1 07/03/20 25 Active colchicine 0.6 MG tabletIndicatio ns:Chronic gout of multiple sites, unspecified cause TAKE 1 TABLET BY MOUTH INITIALLY, THEN TAKE 1 TABLET BY MOUTH IN 1 HOURS NEEDED 30 tablet 1 12/26/19 25 Active colchicine 0.6 MG tabletIndicatio ns:Chronic gout of multiple sites, unspecified cause TAKE 1 TABLET BY MOUTH INITALLY, THEN TAKE 1 TABLET BY MOUTH IN 1 HOURS NEEDED 30 tablet 1 10/14/19 25 2024 Discontinued Active Problems Problem Noted Date Diagnosed Date Degenerative arthritis of left knee 10/03/2024 Assessment & Plan (10/03/2024 10:12 AM EDT): Seen by Ortho 08/14/2024 Dr Cota, received steroid injection Sleep disturbances 10/03/2024 Assessment & Plan (10/03/2024 10:30 AM EDT): Pt with hypersomnolence Will refer for sleep study Low vitamin D level 10/03/2024 Assessment & Plan (10/03/2024 10:32 AM EDT): Will start supplement Esophageal hiatal hernia 06/13/2024 Assessment & Plan (06/13/2024 9:44 AM EST): Pt s/p EGD 02/11/2024 Dr dumont Endoscopy Findings: ESOPHAGUS: Small hiatal hernia, mildly tortuous esophagus without stricture or ring. Empiric esophageal balloon dilation of proximal and distal esophagus with a 16.5 mm (49.5 F) CRE balloon STOMACH: Diffuse gastritis DUODENUM: A medium sized diverticulum in the medial wall of descending duodenum Oral phase dysphagia 01/13/2024 Assessment & Plan (10/03/2024 10:13 AM EDT): Under the care of GI Dr. Dumont last seen 08/31/2024 Barium Swallow 10/26/2023 that showed: 1. An esophageal web is present just [...] descending duodenum Plan as per Dr. Dumont GI, Assessment & Plan (06/13/2024 9:56 AM EST): Under the care of GI Dr. Dumont [...] duodenum Plan as per Dr. Dumont GI Assessment & Plan (01/13/2024 9:14 AM EDT): Under the care of GI Dr. Dumont [...] examination. Etiology unknown. Plan as per Dr. Tim PETTY, has a follow up 02/11/2024 Chronic anemia 08/06/2022 Assessment & Plan (10/03/2024 10:35 AM EDT): Pt with hx. of iron deficiency anemia. diagnostic work up included an EGD 02/11/2024 Dr dumont Endoscopy Findings: ESOPHAGUS: Small hiatal hernia, mildly tortuous esophagus without stricture or ring. Empiric esophageal balloon dilation of proximal and distal esophagus with a 16.5 mm (49.5 F) CRE balloon STOMACH: Diffuse gastritis DUODENUM: A medium sized diverticulum in the medial wall of descending duodenum and a repeat colonoscopy Repeat 02/11/2024 showed: Colonoscopy Findings: Three small to medium sized polyps were removed (tubular adenomas) Moderate diverticulosis seen in the entire colon Moderate hemorrhoids on retroflexed exam. 3 to 5 year follow up recommended Pt was last seen by configuration management specialist Dr Iglesias last seen 05/2014. Repeat CBC shows mild anemia, normal B12 Assessment & Plan (08/06/2022 9:32 AM EDT): Pt with hx. of iron deficiency anemia. Previous diagnostic work up included an EGD 09/2005 negative and a repeat colonoscopy 09/29/11 that aside from melanosis in the colon was otherwise normal. Pt was last seen by configuration management specialist Dr Iglesias last seen 05/2014. Repeat CBC wnl. [facility] health care 08/06/2022 Assessment & Plan (06/13/2024 9:55 AM EST): PSA: 08/26/2022 Normal colonoscopy with melanosis September 2011 at [facility] [place] h/o tubular adenoma /Repeat Colonoscopy at [facility] 02/03/2018 showed 3 Tubular adenomas 5 yr f/u. Repeat Colonoscopy 12/15/2022 Showed tubular adenoma again /Repeat 02/11/2024 showed 3 tubular adenomas 3-5 yr follow up recommended Assessment & Plan (01/13/2024 9:17 AM EDT): PSA: 08/26/2022 Normal Vaccines: Tdap 02/02/2014 pneumovax May 2008 Prevnar: 12/27/2014 zostavax Jan 2012 at [facility] colonoscopy with melanosis September 2011 at [facility] with h/o tubular adenoma for rescreening 5yrs. Repeat Colonoscopy at [facility] this time 02/03/2018 showed 3 Tubular adenomas 5 yr f/u. Repeat Colonoscopy 12/15/2022 Showed tubular adenoma again Assessment & Plan (07/15/2023 3:00 PM EST): PSA: 08/26/2022 Normal Vaccines: Tdap 02/02/2014 pneumovax May 2008 Prevnar: 12/27/2014 zostavax Jan 2012 at [facility] colonoscopy with melanosis September 2011 at [facility] with h/o tubular adenoma for rescreening 5yrs. Repeat Colonoscopy at [facility] this time 02/03/2018 showed 3 Tubular adenomas 5 yr f/u. Repeat Colonoscopy 12/15/2022 Showed tubular adenoma again Assessment & Plan (03/16/2023 8:48 AM EDT): PSA: 08/26/2022 Normal Vaccines: flu vaccine: Tdap 02/02/2014 pneumovax May 2008 Prevnar: 12/27/2014 zostavax Jan 2012 at [facility] colonoscopy with melanosis September 2011 at [facility] with h/o tubular adenoma for rescreening 5yrs. Repeat Colonoscopy at [facility] this time 02/03/2018 showed 3 Tubular adenomas 5 yr f/u. Repeat 12/15/2022 Showed tubular adenoma again Assessment & Plan (08/06/2022 9:33 AM EDT): HUBER: At Urologist office. PSA 11/07/2018 was 4.89 Urologist recommended to recheck in 1 year Vaccines: flu vaccine: Tdap 02/02/2014 pneumovax May 2008 Prevnar: 12/27/2014 zostavax Jan 2012 at [facility] colonoscopy with melanosis September 2011 at [facility] with h/o tubular adenoma for rescreening 5yrs. Repeat Colonoscopy at [facility] this time 02/03/2018 showed 3 Tubular adenomas [...] tubular adenoma. Repeat colonoscopy done at [facility] 12/2022 showed a tubular adenoma a 5 year f/u. Repeat 02/11/2024 showed: Colonoscopy Findings: Three small to medium sized polyps were removed (tubular adenomas) Moderate diverticulosis seen in the entire colon Moderate hemorrhoids on retroflexed exam. 3 to 5 year follow up recommended Assessment & Plan (03/16/2023 8:47 AM EDT): He has hx of tubular adenoma. Repeat colonoscopy done at [facility] 12/2022 showed a tubular adenoma a 5 year f/u. Assessment & Plan (08/06/2022 9:30 AM EDT): He has hx of tubular adenoma. Repeat colonoscopy done at [facility] 09/26/2011 did not show a polyp but given his family hx and Hx of tubular adenoma GI specialist recommended a 5 year f/u. Pt had the Colonoscopy at [facility] this time 02/03/2018 showed 3 Tubular adenomas [...] Benign prostatic hyperplasia 06/15/2014 Assessment & Plan (10/03/2024 10:10 AM EDT): Used to be under the care of [facility]. Last seen 07/28/2024, Previously they recommended to STOP checking PSA Last PSA 08/27/2022 3.7 Assessment & Plan (01/13/2024 9:17 AM EDT): Used to be under the care of [facility]. Last seen 07/29/2023, they recommended to STOP checking PSA PSA 08/27/2022 3.7 Assessment & Plan (08/06/2022 9:12 AM EDT): Used to be under the care of [facility]. On 11/07/2018 PSA on that visit [...] up He is under the care of receivables specialist dr Sanchez On Breo Ellipta and Pro-Air Assessment & Plan (07/15/2023 2:52 PM EST): Here for a follow up He is under the care of receivables specialist dr Sanchez On Kimberlyn Ellipta and Pro-Air Assessment & Plan (11/03/2022 9:04 AM EDT): Televisit Under the care of receivables specialist dr Sanchez Last seen 07/23/2021 On [...] po daily. Hypertension 2011 Assessment & Plan (10/03/2024 10:28 AM EDT): Patient is here for a follow up BP remains controlled pt reports compliance with medications He is on a regimen of: Norvasc 10 mg po daily and Atenolol 25 mg po daily. Of note Lisinopril caused him dry cough and throat pruritus Most recent electrolytes, Bun and Creatinine done on: Lab Results Component Value Date NA 142 07/04/2024 NA 142 03/23/2023 K 4.1 07/04/2024 K 3.9 03/23/2023 CL 108 07/04/2024 CL 107 03/23/2023 BUN 15 07/04/2024 BUN 14 03/23/2023 CREATININE 1.03 07/04/2024 CREATININE 0.99 03/23/2023 within normal limits Plan: Continue current regimen Patient is not a good candidate for Thiazide diuretics due to his Hx of Gout patient advised to adhere to a low sodium diet, encouraged about medication compliance, counseled about weight loss. f/u 4 months Assessment & Plan (06/13/2024 10:02 AM EST): [...] 25 mg po daily. Recently saw his Environmental Health Technician Dr Neumann 10/06/2022 Of note Lisinopril caused [...] 25 mg po daily. Recently saw his Environmental Health Technician Dr Neumann 10/06/2022 Of note Lisinopril caused [...] Encounters Date Type Department Care Team Description 01/03/2025 Patient Outreach [facility] [address] [place] [address] Hoang Yusuf MD Pre-visit Planning ([facility] screening was completed on 06/01/2024) 12/24/2024 Refill [facility] [address] [place] [address] Hoang Yusuf MD Chronic gout of multiple sites, unspecified cause 11/16/2024 Refill [facility] [address] [place] [address] Hoang Yusuf MD Primary hypertension 11/13/2024 Refill [facility] [address] [place] [address] Hoang Yusuf MD Chronic obstructive pulmonary disease, unspecified COPD type ([facility]/HCC) 11/11/2024 Refill [facility] [address] [place] [address] Hoang Yusuf MD Chronic obstructive pulmonary disease, unspecified COPD type ([facility]/HCC) 10/13/2024 Refill [facility] [address] [place] [address] Vanessa Villavicencio MD Chronic gout of multiple sites, unspecified cause from Last 3 Months Immunizations Immunization Administration Dates Next Due Influenza High-dose Quadriva [...] Sign Reading Time Taken Comments Blood Pressure 140/82 10/03/2024 10:28 AM EDT Pulse 75 10/03/2024 10:14 AM EDT Temperature 36.3 C (97.3 F) 10/03/2024 10:14 AM EDT Respiratory Rate 20 10/03/2024 10:14 AM EDT Oxygen Saturation 98% 10/03/2024 10:14 AM EDT Inhaled Oxygen Concentration - - Weight 94.4 kg (208 lb 3.2 oz) 10/03/2024 10:14 AM EDT Height 162.6 cm (5' 4 ) 10/03/2024 10:14 AM EDT Body Mass Index 35.74 10/03/2024 10:14 AM EDT Plan of Treatment Upcoming Encounters Date Type Department Care Team (Late st Contact Info) Description 01/11/2025 10:00 AM EDT Office Visit [facility] [address] [place] [address] Hoang Yusuf MD [address] [place] [address] Health Maintenance Due Date Last Done Comments CT Colonography 1937 FIT DNA/Cologuard 1937 FIT 1937 FOBT 1937 Sigmoidoscopy 1937 COVID-19 Vaccine ( season) 2024 02/08/2024, 09/30/2021, 06/05/2021, Additional history exists Depression Screening 01/12/2025 01/13/2024, 01/13/20 Influenza Vaccine (#1) 2025 , 02/12/2023, 02/23/2022, Additional history exists SDOH Screening 06/01/2025 06/01/2024 Alcohol/Substance Use Screening [...] Procedure Name Priority Date/Time Associated Diagnosis Comments LIPID PANEL, STANDARD Routine 07/04/2024 8:25 AM EST Primary hypertension HM COLONOSCOPY Routine 02/11/2024 11:48 AM EDT from Last 3 Months or Most Recently Relevant to Health Maintenance Results * (ABNORMAL) Lipid Panel, Standard (07/04/2024 8:25 AM EST) Triglycerides 92 <150 mg/dL [facility] Comment:Desirable Triglyceri de: less than 150 mg/dLBorderline High Triglyceride 150-199 mg/dLHigh Triglyceride: 200-499 mg/dLVery High Triglyceride: greater than or equal to 5OO mg/dL Cholesterol 172 <200 mg/dL [facility] Comment:Desirable Cholestero l: less than 200 mg/dLBorderline High Cholesterol: 200-239 mg/dLHigh Cholesterol: greater than 239 mg/dL LDL Cholesterol Calculated 110(H) <100 mg/dL [facility] Comment:Desirable LDL: less than 100 mg/dLNear Optimal/Above Optimal LDL: 110- 129 mg/dLBorderline High LDL: 130-159 mg/dLHigh LDL: 160-189 mg/dLVery High LDL: greater than or equal to 190 mg/dL HDL Cholesterol 44 >40 mg/dL [facility] Comment:Desirable HDL: great er than 40 mg/dL Note: This HDL assay may give artificially low results in patients with liver disease. Blood Venous blood specimen / Unknown 07/04/2024 8:25 AM EST 07/04/2024 11:01 AM EST Hoang Rees MD LAB BLOOD ORDERABLES Final Result [facility] [address] [place] [address] [phone] * Colonoscopy (02/11/2024 11:48 AM EDT) Colonoscopy Normal Normal 02/11/2024 11:4 8 AM EDT Jillian Dumont MD HEALTH MAINTENANCE Final Result from Last 3 Months or Most Recently Relevant to Health Maintenance Insurance [facility] [employer] (O D-SNP) [address] [place] [id number] Care Teams Remote Computer Terminal Operator Relationship Specialty Start Date End Date Hoang Yusuf MD [address] [place] [phone] PCP - General Internal Medicine 02/02/14
--- OUTSIDE RECORDS SUMMARY | 2025-01-09 06:06 | XMS_ITS | Encounter Summary ---
Author Organization [employer] Address [address] [facility] [address] [place] [address] Care Team Providers Care Clam Grader Name Role Phone Hoang Yusuf MD Primary Care Provide r Encounter Details Date Type Department Care Team (Late Contact Info) Description 03/04/2023 Orders Only [facility] [address] [place] [address] Michelle Fonseca LPN Social History Tobacco Use [...] Description 01/11/2025 10:00 AM EDT Office Visit [facility] [address] [place] [address] Hoang Yusuf MD [address] [place] [address] documented as of this encounter Visit Diagnoses Not on filedocumented in this encounter Additional Health Concerns Assessment Noted Time PHQ-9 Depression Total Score: 0 08/07/19 23 11:34 AM EDT documented as of this encounter Care Teams Clam Grader Relationship Specialty Start Date End Date Hoang Yusuf MD [address] [place] [address] PCP - General Internal Medicine 02/02/14 documented as of this encounter
--- OUTSIDE RECORDS SUMMARY | 2025-01-09 06:06 | XMS_ITS | Encounter Summary ---
Author Organization [employer] Address [address] [facility] [address] [place] [address] Care Team Providers Care After School Program Teacher Name Role Phone Hoang Yusuf MD Primary Care Provide r Encounter Details Date Type Department Care Team ([facility] st Contact Info) Description 03/18/2023 Orders Only [facility] PEDS [address] [place] [address] Simran Mak LPN Social History Tobacco Use [...] Visit [facility] [address] [place] [address] Hoang Yusuf MD [address] [place] [address] documented as of this encounter Visit Diagnoses Not on filedocumented in this encounter Additional Health Concerns Assessment Noted Time PHQ-9 Depression Total Score: 0 08/07/19 23 11:34 AM EDT documented as of this encounter Care Teams After School Program Teacher Relationship Specialty Start Date End Date Hoang Yusuf MD [address] [place] [phone] PCP - General Internal Medicine 02/02/14 documented as of this encounter
--- OUTSIDE RECORDS SUMMARY | 2025-01-09 06:06 | XMS_ITS | Encounter Summary ---
Author Organization [employer] Address [address] [facility] [address] [place] [address] Care Team Providers Care Rake Operator Name Role Phone Hoang Yusuf MD Primary Care Provide r Reason for Visit * Reason Comments Med Refill Encounter Details Date Type Department Care Team ([facility] st Contact Info) Description 11/13/2024 Refill [facility] [address] [place], [place] [phone] Hoang Yusuf MD [address] [place], [place] [phone] Chronic obstructive pulmonary disease, unspecified COPD type ([facility]/HCC) Social History Tobacco Use Types Packs/Day Years [...] Office Visit [facility] [address] [place] [phone] Hoang Yusuf MD [address] [place] [phone] documented as of this encounter Visit Diagnoses Diagnosis Chronic obstructive pulmonary disease, unspecified COPD type (CMS/HCC) documented in this encounter Additional Health Concerns Assessment Noted Time PHQ-9 Depression Total Score: 0 01/13/20 24 9:08 AM EDT documented as of this encounter Care Teams Rake Operator Relationship Specialty Start Date End Date Hoang Yusuf MD [address] [place] [phone] PCP - General Internal Medicine 02/02/14 documented as of this encounter
--- OUTSIDE RECORDS SUMMARY | 2025-01-09 06:06 | XMS_ITS | Clinical Summary ---
Author Organization [facility] Address [address] [place] [address] Phone Care Team Providers Care Dye Winch Operator Name Role Phone Hoang Pro MD Primary [...] total) by mouth at bedtime. Active fluticasone furoate-vilant Mayd (Breo Ellipta) 100-25 mcg/dose inhaler Inhale by mouth 1 (one) time each day. Active fluticasone propionate (FLONASE) 50 mcg/actuation nasal spray Administer 1 spray into each nostril 1 (one) time each day. Shake gently. Before first use, prime pump. After use, clean tip and replace cap. Active omeprazole (PriLOSEC) [address] capsule Take 1 capsule (20 mg total) by mouth 1 (one) time each day. Do not crush or chew. Active cetirizine (ZyrTEC) 10 mg tablet Take 1 tablet (10 mg total) by mouth 1 (one) time each day. 90 each 5 03/20/20 25 Active aspirin 81 mg EC tablet Take 1 tablet (81 mg total) by mouth 1 (one) time each day in the morning. 5 Active cholecalcifero l (VITAMIN D-3) 25 mcg (1,000 unit) capsule Take 25 mcg by mouth daily. 5 Active sucralfate (CARAFATE) 1 gram tablet 5 Active cetirizine (ZyrTEC) 10 mg tablet Take 1 tablet (10 mg total) by mouth 1 (one) time each day. 12/20/19 25 Discontinu ed(Reorder ) Active Problems Problem Noted Date Diagnosed Date Asthma 10/20/2024 JACQUIE (obstructive sleep apnea) 10/20/2024 Allergic conjunctivitis and rhinitis 10/20/2024 GERD (gastroesophageal reflux disease) Encounters Date Type Department Care Team Description 11/01/2024 8:15 AM EDT Office Visit [address] [place] [address] Azucena Sanchez MD Moderate asthma without [...] Care Team (Late st Contact Info) Description 02/05/2025 8:30 AM EDT Office Visit Pulmonolgy - [address] [place] [address] Azucena Sanchez MD [address] [place] [phone] Health Maintenance Due Date Last Done Comments [...] patient's age to complete this topic Insurance [facility] Member Subscriber Plan / Payer (Ef fective 2022-Present) Name:BAY MACKENZIE Relation to Subscriber:Self Name:Bay Mackenzie Payer ID:[id number] Group ID:[id number] Type:Not on file Address: [place] [address] [place] [address] [phone] Care Teams Dye Winch Operator Relationship Specialty Start Date End Date Hoang Pro MD [address] [place] [phone] PCP - General Internal Medicine 11/01/24
[2025-01-09 06:19] LABS: MANUAL DIFF FLAG NO
[2025-01-09 07:35] LABS: Hematocrit 37.6 % (42.0-52.0); Hemoglobin 11.8 g/dl (14.0-18.0); Imm Gran Abs Auto 0.01 X10*3/uL (0.00-0.03); Imm Gran Pct Auto 0.2 % (0.0-0.4); Lymphocytes Absolute Auto 2.4 X10*3/uL (1.2-4.9); Mean Corpuscular HGB Conc 31.4 g/dl (31.0-36.0); Mean Corpuscular Hemoglobin 25.4 pg (27.0-33.0); Mean Corpuscular Volume 81.0 fL (80.0-98.0); NRBC Abs Auto 0.000 X10*3/uL (0.0-0.012); NRBC Pct Auto 0.0 /100WBC (0.0-0.2); Platelet Count 207 X10*3/uL (160-400); Red Blood Count 4.64 X10*6/uL (4.60-5.80); White Blood Count 5.6 X10*3/uL (4.8-10.8)
[2025-01-09 07:59] LABS: B Type Natriuretic Peptide 276 pg/mL (<100)
[2025-01-09 08:00] LABS: Anion Gap 12 (12-20); Blood Urea Nitrogen 18 mg/dL (9-16); Calcium 9.2 mg/dL (8.4-10.2); Carbon Dioxide 27 mmol/L (22-29); Chloride 106 mmol/L (96-108); Cholesterol 149 mg/dL (<200); Estimated Glomerular Filt Rate > 60; HDL Cholesterol 35 mg/dL (>40); Potassium 4.2 mmol/L (3.3-5.1); Sodium 141 mmol/L (135-145); Triglycerides 83 mg/dL (<150)
[2025-01-09 08:17] LABS: Thyroid Stimulating Hormone 3.02 uIU/mL (0.32-4.0)
== END 2025-01-09 06:03 | disposition home or self-care (01) ==
LOC: HO.LAB 06:02
PROVIDERS: PCP Internal Medicine; Visit Provider Internal Medicine Cardiovascular Disease
DX: Z13.29 Encounter for screening for other suspected endocrine disorder (principal); R07.89 Other chest pain
CPT/HCPCS: 36415; 80048; 80061; 83880; 84443; 85025

== ENCOUNTER 2025-01-19 08:12 | Outpatient (AMB) | payer MEDICARE, SELFPAY ==
--- NOTE | 2025-01-19 08:22 | A.OFFVIS_ITS ---
Vital Signs 01/19/25 08:26 Height 5 ft 4 in Weight 202 lb BMI 34.7 BP 113/60 Blood Pressure Location Lt brachial Position Sitting Pulse 83 Pulse Oximetry (%) 97 Oxygen Delivery Method Room Air Intake Visit Reasons: 3m dysphagia r/s'd from 12/28/24 Intake Note: Patient 3 month follow up dysphagia and Lab results Patient cc: dysphagia on and off at night time. Denies any other GI issues. Gravity Prospecting Supervisor Required: No Gravity Prospecting Supervisor Name: [facility] Interpeter Accompanied by: Self / Same As Patient Allergies No Known Allergies Allergy (Verified 01/19/25 08:21) Medication List - Last Reconciled 01/19/25 by Jillian Dumont MD albuterol sulfate 90 mcg/actuation 2 puffs inhalation Q4H PRN albuterol sulfate 2.5 mg inhalation Q6H PRN amlodipine 10 mg PO DAILY apixaban (Eliquis) 5 mg PO BID aspirin (Adult Low Dose Aspirin) 81 mg PO DAILY atenolol 25 mg PO DAILY cholecalciferol (vitamin D3) (Vitamin D3) 25 mcg PO DAILY colchicine 0.6 mg PO DAILY fluticasone furoate-vilanterol 100-25 mcg/dose (Breo Ellipta) 1 ea inhalation DAILY omeprazole 20 mg PO DAILY@0630 HPI HPI 3m dysphagia r/s'd from 12/28/24: Details: GI clinic visit for this 88 year male for FU of colon polyps. TODAY'S VISIT: Telephone Feeder Driver, Cleve # [id number] Patient reports dysphagia on and off at night time. 6 month follow up for Dysphagia, pharyngoesophageal phase Symptoms are intermittent and at night time - feels something is there Throat is always dry Has an appt for ? cardioversion at [facility] on 01/26/25 PAST VISITS: When I lay down my mouth gets too dry and I am not able to sleep Drinks two bottles of water during the day. Denies dysphagia or heartburn, constipation or diarrhea. EGD and colon results were reviewed with the patient. Notes improvement in swallowing after dilation. Had a single episode of dysphagia a week ago while eating food Food ultimately passed and he did not have to regurgitate Denies recurrent episodes since then Patient denies any GI issues, patient is not taking Omeprazole because never received any other refills, he does not if he have to continue to take it or not EGD and colon results reviewed with the patient. Has intermittent heartburn depending on his diet and on no medications (was taking Ranitidine twice a day in the past).Patient denies symptoms of heartburn, dysphagia, nausea, vomiting, change in appetite or weight. Denies recent change in bowel habits, constipation, diarrhea, black stools. Intermittent BRBPR. Patient denies major cardiac or pulmonary problems. Pt has a hx of loud snoring and not tested for sleep apnea Denies problems with anesthesia in the past. Denies being on chronic anticoagulation. Brother from Colon Cancer ? at age 39 yrs. Complains of back pain. Social History Tobacco Use:? Tob acco Use/Smoking? Are you a: former smoker , How long has it been since you last smoked?: > 10 years.? Mi scellaneous:? Occ upation: retired. Dominant hand: left. Activity Level: very active. Marital status: . IMAGING STUDIES: 10/26/23 Barium swallow ENDOSCOPIC STUDIES: 12/15/22 EGD AND COLON SHOWED: Endoscopy Findings: STOMACH: Mild gastric erythema with a few chronic appearing erosions. DUODENUM: A medium sized diverticulum in the medial wall of descending duodenum Colonoscopy Findings: Two medium sized and one large polyps removed Moderate diverticulosis seen in the sigmoid colon Moderate hemorrhoids on retroflexed exam. Plan: Repeat Colonoscopy interval based on path results - in 3 years if polyps are adenomatous and 5 years if polyps are hyperplastic (adult colonoscope for future colonoscopies). 01/2018 COLONOSCOPY SHOWED:Ascending Colon ? A 15 mm sessile polyp removed with hot snareTransverse Colon - A 10 mm sessile polyp removed with cold snare. Some bleeding noted at polypectomy site controlled with cautery using the snare tip Descending Colon ? Normal Sigmoid Colon ? A 10 mm sessile polyp removed with hot snare Rectum ? Normal Anorectum - Moderate non inflammed internal hemorrhoids Colon preparation: Fair despite copious flushing and suctioning and poor in some areas of the colon Impression and Post Procedure Diagnosis: Colonoscopy Findings: Three polyps removed Moderate hemorrhoids on retroflexed exam. Fair prep and poor in some areas Plan: Await pathology results Patient has an appointment on 02/22/2018 in the GI Clinic with Jillian Dumont M.D. Repeat Colonoscopy in 1 year due to fair prep. Biopsies of polyps showed tubular adenoma PAST GI HISTORY BY REVIEW OF MEDICAL RECORDS: ?Patient had colooscopy on 03/17/2011 at [facility] for screening which showed: ?Diffuse melanosis coli throughout the colon. ?Two 8 - 10 mm sessile polyps were removed from the ascending colon. ?No diverticulii or hemorrhoids noted. ?Good prep. ?FU colonoscopy was advised in 6 months which was performed on 09/29/2011 and no polyps were seen. ?5 yr FU recommende [facility] Medical History Enlarged prostate Anemia Gout Asthma Hypertension Surgical History History of esophagogastroduodenoscopy (EGD) Hx of colonoscopy Hx of LASIK Family History Brother Colon cancer Social History Household Members: Spouse Housing: Apartment Are you a primary animal care service worker to a significant other at home: No Do you presently have visiting nurse or other home services: No Alcohol intake: current Alcohol type: wine Patient Tobacco Use Status: Former Tobacco user service: No Review of Systems Const All systems reviewed & are unremarkable except as noted in HPI and below Physical Exam Vital Signs: Last Vital Signs Pulse 83 01/19/25 08:26 BP 113/60 01/19/25 08:26 Pulse Ox 97 01/19/25 08:26 Oxygen Delivery Method Room Air 01/19/25 08:26 BMI result Body Mass Index 34.7 Const General: healthy appearing and no acute distress Nutritional Appearance: obese Orientation/consciousness: patient oriented x3 Limitations: language barrier HEENT Head: Yes normal to inspection Ears: hearing grossly normal bilaterally Eyes Sclerae: sclerae normal Pupils: Equal, round and reactive pupils present Neck Neck: Yes normal visual inspection Chest Chest palpation & inspection: normal inspection of the chest Resp Effort & Inspection: normal respiratory effort Auscultation: clear to auscultation bilaterally Cardio Palpation: normal PMI Rate: regular rate Rhythm: regular rhythm Heart sounds: S1 normal heart sound present, S2 normal heart sound present and no murmurs GI Palpation (GI): Soft to palpation, nontender and No hepatosplenomegaly present Auscultation: normal bowel sounds Rectal Exam - Male: Yes deferred Skin General skin exam: no rashes or lesions noted Neuro General: patient oriented x3, gait normal and moves all extremities Cranial nerves: Yes Equal, round and reactive pupils present Psych Appearance: grossly normal Mental Status: mental status grossly normal Assessment & Plan Assessment & Plan (1) History of colon polyps: Comment: 2018 Pt had a colonoscopy and three medium sized polyps were removed. Repeat colon advised in 1 year due to suboptimal prep and not scheduled due to the pandemic 01/2024 Three small to medium sized polyps were removed during colonoscopy Pt was informed that EGD and colonoscopic surveillance can be discontinued given advanced age Code(s): Z86.010 - Personal history of colon polyps Category: Medical (2) Helicobacter pylori gastritis: Code(s): K29.70 - Gastritis, unspecified, without bleeding; B96.81 - Helicobacter pylori [H. pylori] as the cause of diseases classified elsewhere Category: Medical (3) Multiple duodenal ulcers: Code(s): K29.81 - Duodenitis with bleeding Category: Medical (4) Dysphagia, pharyngoesophageal phase: Code(s): R13.14 - Dysphagia, pharyngoesophageal phase Category: Medical Plan 89 YM with gout, asthma and hypertension here to schedule a colonoscopy due to history of colon polyps and family history of colon cancer. 2018 Pt had a colonoscopy and three medium sized polyps were removed. Repeat colon advised in 1 year due to suboptimal prep and not scheduled due to the pandemic Patient also complains of intermittent heartburn related to diet. 12/15/22 An upper endoscopy (GERD) and a colonoscopy (FU of colon polyps) were performed and findings as noted above. Gastric bx was positive for H Pylori. Pt was prescribed Pylera and Omeprazole 08/26/23 Had a single episode of dysphagia a week ago while eating food Food ultimately passed and he did not have to regurgitate Denies recurrent episodes since then. H Pylori breath test. Resume Omeprazole once a day after the breath test Pt advised to schedule a Barium swallow if he continues to have dysphagia 10/2023 BARIUM SWALLOW SHOWED: 1. 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 2. Small type I hiatal hernia. 3. Moderate gastroesophageal reflux. 4. Second segment duodenal diverticulum. 02/11/24 EGD and colon were performed and showed: Endoscopy Findings: ESOPHAGUS: Small hiatal hernia, mildly tortuous esophagus without stricture or ring. Empiric esophageal balloon dilation of proximal and distal esophagus with a 16.5 mm (49.5 F) CRE balloon STOMACH: Diffuse gastritis DUODENUM: A medium sized diverticulum in the medial wall of descending duodenum Impression and Post Procedure Diagnosis: Colonoscopy Findings: Three small to medium sized polyps were removed Moderate diverticulosis seen in the entire colon Moderate hemorrhoids on retroflexed exam. Plan: Repeat Colonoscopy in 3-5 years if polyps are adenomatous if pt remains in stable health. BIOPSIES SHOWED: A. Gastric antrum, biopsy: Gastric antral mucosa with minimal chronic active gastritis and focal intestinal metaplasia; negative for dysplasia. B. Gastric body, biopsy: Gastric body mucosa with minimal chronic inactive gastr itis; negative for intestinal metaplasia and dysplasia. C. Colon, transverse, polyps: Tubular adenomas, three; negative for high-grade dysplasia and carcinoma Letter sent advising repeat EGD (FU of gastric intestinal metaplasia) colonoscopy in 3 years. Pt placed on the recall list for EGD and Colon. Pt was informed that EGD and colonoscopic surveillance can be discontinued given advanced age 408/31/24 Pt complains of dry mouth and denies dysphagia. Advised a trial of sucralfate slurry at bedtime. 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 FU in 4 months Coding Level of Care Code Est Pt Level 3 (10366) Diagnoses History of colon polyps Z86.010 Helicobacter pylori gastritis K29.70; B96.81 Multiple duodenal ulcers K29.81 Dysphagia, pharyngoesophageal phase R13.14 Time Spent (min) 19
[2025-01-19 08:26] VITALS: BP 113/60; PULSE 83; O2SAT 97; BMI 34.7
--- OUTSIDE RECORDS SUMMARY | 2025-01-19 08:31 | XMS_ITS | Clinical Summary ---
Author Organization [address] [facility] Address [address] [place] [address] Phone Care Team Providers Care Votator Machine Operator Name Role Phone Hoang Pro MD [...] each day in the morning. 5 Active cholecalciferol (VITAMIN D-3) 25 mcg (1,000 unit) capsule Take 25 mcg by mouth daily. Active sucralfate (CARAFATE) 1 gram tablet Active Active Problems Problem Noted Date Diagnosed Date Asthma 10/20/2024 JACQUIE (obstructive sleep apnea) 10/20/2024 Allergic conjunctivitis and rhinitis 10/20/2024 GERD (gastroesophageal reflux disease) Encounters Date Type Department Care Team Description 11/01/2024 8:15 AM EDT Office Visit Pulmonolgy [address] [place] [address] Azucena Sanchez MD Moderate asthma [...] 8:30 AM EDT Office Visit Pulmonolgy - [place] [address] [facility] [address] [place] [address] Azucena Sanchez MD [address] [place] [address] [phone] Health Maintenance Due Date Last Done Comments Depression Screening 05/17/2024 Falls Risk Assessment 09/28/2024 Social Influencers of Health Screening 09/28/2024 Hypertension/CHF/CAD Annual BMP Blood Test 11/01/2024 COVID-19 Vaccine ( season) 2025 02/08/2024, 09/30/2021, 06/05/2021, Additional history exists Influenza Vaccine (#1) 2025 , 02/12/2023, 02/23/2022, [...] patient's age to complete this topic Insurance [facility] Member Subscriber Plan / Payer (Ef fective 2022-Present) Name:BAY MACKENZIE Relation to Subscriber:Self Name:Bay Mackenzie Payer ID:[id number] Group ID:[id number] Type:Not on file Address: [place] [address] [place] [id number] Care Teams Votator Machine Operator Relationship Specialty Start Date End Date Hoang Pro MD [address] [place] [address] [phone] PCP - General Internal Medicine 11/01/24
== END 2025-01-19 08:53 | disposition home or self-care (01) ==
LOC: HO.HGI 08:13
PROVIDERS: PCP Internal Medicine; Visit Provider Internal Medicine Gastroenterology
DX: Z86.0100 Personal history of colon polyps, unspecified (principal); K29.70 Gastritis, unspecified, without bleeding; B96.81 Helicobacter pylori [H. pylori] as the cause of diseases classified elsewhere; K29.81 Duodenitis with bleeding; R13.14 Dysphagia, pharyngoesophageal phase
CPT/HCPCS: 99499

== ENCOUNTER → 2025-01-19 08:12 | Outpatient (BNVA) | payer MEDICARE, SELFPAY | PROVIDERS: PCP Internal Medicine; Visit Provider Internal Medicine Gastroenterology | DX: R13.14 Dysphagia, pharyngoesophageal phase (principal); K29.70 Gastritis, unspecified, without bleeding; B96.81 Helicobacter pylori [H. pylori] as the cause of diseases classified elsewhere; K29.81 Duodenitis with bleeding; Z86.0100 Personal history of colon polyps, unspecified; Z79.01 Long term (current) use of anticoagulants; Z79.82 Long term (current) use of aspirin ==

== ENCOUNTER 2025-01-23 11:34 | Outpatient (REF) | payer MEDICARE, SELFPAY ==
--- NOTE | ~2025-01-23 | XR_ITS ---
EXAMINATION: XR LUMBOSACRAL SPINE CLINICAL INFORMATION: low back pain COMPARISON: December 18, 2024 TECHNIQUE: Three views of the lumbosacral spine. FINDINGS: There is straightening of lumbar lordosis. There are 5 nonrib-bearing lumbar segments. L4-5 demonstrates severe disc space narrowing with facet sclerosis and osteophytes.. L5-S1 demonstrates moderate disc space narrowing and vacuum phenomena. There is also facet sclerosis and osteophytes. Other levels in the lumbar spine demonstrate mild disc space narrowing with Schmorl's nodes and mild changes of facet arthropathy. There are also prominent anterior osteophytes. Vertebral body height is preserved compared with the CT scan December 18, 2024. Partial images of the hip joints demonstrate mild axial joint space narrowing and marginal osteophytes. XR/XR lumbar spine 2-3V IMPRESSION: Degenerative disc disease and facet osteophytes. No sign of an acute fracture. Mild degenerative changes in both hip joints. Electronically signed by: Christophe Valenzuela MD 01/23/2025 01:14 PM EDT
--- OUTSIDE RECORDS SUMMARY | 2025-01-23 14:07 | XMS_ITS | Clinical Summary ---
Author Organization [address] [facility] Address [address] [place] [address] Phone Care Team Providers Care Medicaid Plan Compliance Director Name Role Phone Hoang Pro MD Primary [...] 11/01/2024 8:15 AM EDT Office Visit Pulmonolgy [address] [place] [address] Azucena Sanchez MD Moderate asthma [...] 8:30 AM EDT Office Visit Pulmonolgy - [place] [address] [facility] [address] [place] [address] Azucena Sanchez MD [address] [place] [address] [phone] Health Maintenance Due Date Last Done Comments [...] patient's age to complete this topic Insurance [facility] Member Subscriber Plan / Payer (Ef fective 2022-Present) Name:BAY MACKENZIE Relation to Subscriber:Self Name:Bay Mackenzie Payer ID:[id number] Group ID:[id number] Type:Not on file Address: [place] [address] [place] [id number] Care Teams Medicaid Plan Compliance Director Relationship Specialty Start Date End Date Hoang Pro MD [address] [place] [address] [phone] PCP - General Internal Medicine 11/01/24
== END 2025-01-23 11:35 | disposition home or self-care (01) ==
LOC: HO.HHCX 11:34
PROVIDERS: PCP Internal Medicine; Visit Provider Internal Medicine
DX: M54.41 Lumbago with sciatica, right side (principal)
CPT/HCPCS: 72100

== ENCOUNTER → 2025-01-23 12:08 | Outpatient (BNV) | payer MEDICARE, SELFPAY | PROVIDERS: PCP Internal Medicine; Visit Provider Radiology Diagnostic Radiology | DX: M51.360 Other intervertebral disc degeneration, lumbar region with discogenic back pain only (principal) | CPT/HCPCS: 72100 ==

== ENCOUNTER 2025-04-16 08:42 | Outpatient (RCR) | payer OTHER, SELFPAY | END 2025-04-19 09:38 | disposition home or self-care (01) | LOC: HO.PT 08:42 | PROVIDERS: PCP Internal Medicine; Visit Provider Internal Medicine | DX: M54.41 Lumbago with sciatica, right side (principal) | CPT/HCPCS: 97110; 97162 ==